=== PATIENT | female | born 1955 | race Caucasian/White ===

== ENCOUNTER → 2019-12-12 | Outpatient (CLI) | payer MEDICARE, BC ==
--- NOTE | 2019-12-13 11:27 | CT ---
EXAMINATION TYPE: CT chest wo con DATE OF EXAM: 12/12/2019 COMPARISON: NONE HISTORY: Cough, nicotine dependence. CT DLP: 170.10 mGycm. Automated Exposure Control for Dose Reduction was Utilized. TECHNIQUE: CT scan of the thorax is performed without IV contrast. FINDINGS: LUNGS: There is a vague solid pulmonary nodule along the left mediastinal border in the upper lobe me asuring 4 mm on series 4 image 18. This is likely incompletely visualized given slice selection. Ther e is mild bibasilar subsegmental dependent atelectasis and mild emphysematous changes of the lungs. T here is a vague 3 mm right upper lobe pulmonary nodule on series 4 image 10 anteriorly. This is groun dglass. Subpleural 3 mm pulmonary nodule seen on the lateral right lower lobe on image 34. There is no pleural effusion or pneumothorax seen. The tracheobronchial tree is patent. MEDIASTINUM: Lack of IV contrast is noted to limit evaluation for mediastinal and especially hilar ad enopathy. There are no definitive greater than 1 cm hilar or mediastinal lymph nodes. No cardiomega ly or pericardial effusion is seen. Moderate atheromatous changes of the thoracic aorta. Main pulmona ry artery is upper limits of normal size. Moderate coronary artery calcifications, marker of coronary artery disease. OTHER: Mild multilevel degenerative changes of the thoracic spine. Exaggerated thoracic kyphosis. Ext ensive atherosclerosis of the upper to mid abdominal aorta. IMPRESSION: Mild background emphysema with few scattered bilateral sub-4 mm pulmonary nodules. Annual surveillanc e is recommended for nodules of the size of follow-up CT thorax in 12 months.
== END | disposition home or self-care (01) ==
LOC: RADCTMAIN 07:27
PROVIDERS: ATTEND Family Medicine
DX: J43.9 Emphysema, unspecified (principal); R91.8 Other nonspecific abnormal finding of lung field; F17.210 Nicotine dependence, cigarettes, uncomplicated
CPT/HCPCS: 71250

== ENCOUNTER → 2020-01-12 | Outpatient (CLI) | payer MEDICARE, BC ==
--- NOTE | 2020-01-12 10:10 | US ---
EXAMINATION TYPE: US thyroid st tissue head/neck DATE OF EXAM: 01/12/2020 COMPARISON: Chest CT December 12, 2019 CLINICAL HISTORY: R94.6 abnormal thyroid labs. Abnormal thyroid labs, neck pain GLAND SIZE: Right Lobe: 2.8 x 1.1 x 0.9 cm Overall Parenchyma: homogenous Left Lobe: 4.0 x 1.2 x 1.0 cm Overall Parenchyma: homogeneous Isthmus Thickness: 0.3 cm NODULES RIGHT: # of nodules measured on right: 0 LEFT: # of nodules measured on left: 3 1. 0.7 X 0.9 x 0.6 cm hypoechoic solid nodule at the lateral mid pole with well-defined margins. Th is nodule is taller than wide and shows intranodular vascularity. Prior size: no previous 2. 0.9 X 0.7 x 0.9 cm hyperechoic solid nodule at the medial inferior pole with well-defined margins . This nodule is wider than tall and shows intranodular vascularity. Prior size: no previous 3. 0.9 X 0.5 x 0.8 cm hyperechoic solid nodule at the medial mid pole with well-defined margins. Thi s nodule is wider than tall and shows intranodular vascularity. Prior size: no previous ISTHMUS: # of nodules measured in the isthmus: 0 Bilateral neck scanned, no evidence of lymphadenopathy. There is overall fairly small homogeneous thyroid with technologist marking 3 subcentimeter solid nod ules in the left thyroid lobe. Of most concern is the hypoechoic solid nodule that is taller greater than wide. IMPRESSION: Small sized thyroid with left-sided nodules, of most concern is the 9 mm hypoechoic solid nodule, TR 5 lesion highly suspicious, advise annual ultrasound surveillance being subcentimeter in size.
== END | disposition home or self-care (01) ==
LOC: RADUSWWP 09:29
PROVIDERS: ATTEND Family Medicine
DX: E04.2 Nontoxic multinodular goiter (principal); F17.210 Nicotine dependence, cigarettes, uncomplicated
CPT/HCPCS: 76536; 94060; 94726; 94729

== ENCOUNTER → 2020-04-15 | Outpatient (CLI) | payer MEDICARE, BC ==
--- NOTE | 2020-04-15 13:11 | XR ---
EXAMINATION TYPE: XR Hip Complete LT DATE OF EXAM: 04/15/2020 COMPARISON: NONE HISTORY: 64 year-old female with left hip pain TECHNIQUE: 2 views FINDINGS: Mild axial joint space narrowing within the left hip. Left-sided pelvic fluid was. No acute fracture, subluxation, or dislocation. IMPRESSION: Mild left hip OA without acute osseous abnormality seen.
== END | disposition home or self-care (01) ==
LOC: RADXRMAIN 11:56
PROVIDERS: ATTEND Family Medicine
DX: M16.12 Unilateral primary osteoarthritis, left hip (principal)
CPT/HCPCS: 73502

== ENCOUNTER → 2020-05-13 | Outpatient (CLI) | payer MEDICARE, BC ==
--- NOTE | 2020-05-13 08:08 | US ---
EXAMINATION TYPE: US abdomen complete DATE OF EXAM: 05/13/2020 COMPARISON: NONE CLINICAL HISTORY: R19.09 PELVIC PAIN, ASCITIES. nausea EXAM MEASUREMENTS: Liver Length: 14.1 cm Gallbladder Wall: 0.2 cm CBD: 0.7 cm Spleen: 9.6 cm Right Kidney: 10.2 x 4.0 x 4.8 cm Left Kidney: 9.1 x 5.0 x 3.9 cm Pancreas: visualized portions appear wnl Liver: appears wnl Gallbladder: no evidence of stones Evidence for sonographic Aragon's sign: no CBD: dilated Spleen: wnl Right Kidney: cystic area lower pole = 0.9 x 0.6 x 0.9cm Left Kidney: cystic area = 0.8 x 1.0cm Upper IVC: wnl Abd Aorta: calcifications noted The liver is homogenous. The intrahepatic portion of the IVC and proximal abdominal aorta are within normal limits. There is no evidence of cholelithiasis. The visualized portions of the pancreas are homogenous. The spleen is unremarkable. Kidneys are symmetric and free of hydronephrosis. IMPRESSION: 1. Mild prominence of the common bile duct. 2. Renal cystic changes.
--- NOTE | 2020-05-13 08:09 | US ---
EXAMINATION TYPE: US pelvic limited DATE OF EXAM: 05/13/2020 COMPARISON: NONE CLINICAL HISTORY: R19.09 PELVIC PAIN, ASCITIES. pelvic pressure, fluid visualized within left pelvis on xray 04/15/20, complete hysterectomy TECHNIQUE: Transabdominal (TA) Date of LMP: unknown EXAM MEASUREMENTS: Uterus: Surgically absent Endometrial Stripe: Surgically absent Right Ovary: Surgically absent Left Ovary: Surgically absent 1. Uterus: Surgically absent, vaginal cuff = 0.7cm 2. Endometrium: Surgically absent 3. Right Ovary: Surgically absent 4. Left Ovary: Surgically absent 5. Bilateral Adnexa: appears wnl IMPRESSION: Unremarkable post operative pelvis.
== END | disposition home or self-care (01) ==
LOC: RADUSWWP 07:01
PROVIDERS: ATTEND Family Medicine
DX: R19.09 Other intra-abdominal and pelvic swelling, mass and lump (principal); N28.9 Disorder of kidney and ureter, unspecified
CPT/HCPCS: 76700; 76857

== ENCOUNTER → 2021-01-02 | Outpatient (CLI) | payer MEDICARE, BC ==
--- NOTE | 2021-01-02 10:16 | CT ---
EXAMINATION TYPE: CT chest wo con DATE OF EXAM: 01/02/2021 COMPARISON: Chest CT December 12, 2019 HISTORY: Lung nodules CT DLP: 333 mGycm. Automated Exposure Control for Dose Reduction was Utilized. TECHNIQUE: CT scan of the thorax is performed without IV contrast. FINDINGS: LUNGS: Mild underlying emphysematous change redemonstrated. Mild bibasilar linear scarring and/or ate lectasis. Scattered small nodules or nodular opacities redemonstrated. Stable 5 x 3 mm groundglass no dule medial axial image 18 left upper lobe. Stable 3 to 4 mm left upper lobe lateral nodule axial benjie ge 15 in retrospect. The vague 2 to 3 mm right upper lung groundglass nodule axial image 10 is less w ell-seen likely stable. Stable 4 x 2 mm subpleural nodule or nodular scarring right lower lobe axial image 36. No new or enlarging greater than 4 mm nodules. No pleural effusion or pneumothorax. MEDIASTINUM: Lack of IV contrast is noted to limit evaluation for mediastinal and especially hilar ad enopathy. There are no definitive new greater than 1 cm hilar or mediastinal lymph nodes. No cardio megaly or pericardial effusion is seen. Moderate coronary artery calcification. OTHER: Underlying scoliotic curvature. [id number] multilevel anterior spurring in the midthorac ic spine. IMPRESSION: Stable scattered small nodules or nodular opacities and nodular scarring. No new or enlar ging nodules. Findings presumed benign.
== END ==
LOC: RADCTMAIN 08:43
PROVIDERS: ATTEND Family Medicine
DX: R91.8 Other nonspecific abnormal finding of lung field (principal)
CPT/HCPCS: 71250

== ENCOUNTER → 2021-02-27 | Outpatient (CLI) | payer MEDICARE, BC ==
--- NOTE | 2021-02-28 06:25 | US ---
EXAMINATION TYPE: US thyroid st tissue head/neck DATE OF EXAM: 02/27/2021 COMPARISON: Prior thyroid ultrasound January 12, 2020 CLINICAL HISTORY: E04.2 Nontoxic multinodular goiter. follow up exam GLAND SIZE: Right Lobe: 2.9 x 0.9 x 0.9 cm Overall Parenchyma: homogenous Left Lobe: 4.0 x 0.9 x 1.3 cm Overall Parenchyma: heterogeneous Isthmus Thickness: 0.3 cm NODULES RIGHT: # of nodules measured on right: 0 LEFT: # of nodules measured on left: 3 1. 0.9 X 0.6 x 0.8 cm, mid solid or almost completely solid, hypoechoic nodule, which is taller th an wide, with smooth margins, without echogenic foci. Prior size: 0.9 x 0.5 x 0.8 cm 2. 0.8 X 0.8 x 0.6 cm, lowerr solid or almost completely solid, hyperechoic nodule, which is wider than tall, with smooth margins, without echogenic foci. Prior size: 0.7 x 0.9 x 0.6 cm 3. 0.7 X 0.9 x 0.9 cm, lower solid or almost completely solid, hyperechoic nodule, which is wider t blackwood tall, with smooth margins, without echogenic foci. Prior size: 0.9 x 0.7 x 0.9 cm ISTHMUS: # of nodules measured in the isthmus: 0 Bilateral neck scanned, no evidence of lymphadenopathy. Persistent slightly heterogeneous small size thyroid with 3 stable subcentimeter left thyroid nodules marked by technologist. IMPRESSION: As above. No concerning new or enlarging nodules.
== END | disposition home or self-care (01) ==
LOC: RADUSWWP 16:41
PROVIDERS: ATTEND Internal Medicine Endocrinology, Diabetes & Metabolism
DX: E04.2 Nontoxic multinodular goiter (principal)
CPT/HCPCS: 76536

== ENCOUNTER → 2021-02-28 | Outpatient (CLI) | payer MEDICARE, BC ==
[2021-03-01 14:47] LABS: T4, Free (Free Thyroxine) 0.6 ng/dL (0.80-1.80)
== END | disposition home or self-care (01) ==
LOC: LABWHC1 15:16
PROVIDERS: ATTEND Internal Medicine Endocrinology, Diabetes & Metabolism
DX: E04.2 Nontoxic multinodular goiter (principal)
CPT/HCPCS: 36415; 84439; 84443

== ENCOUNTER 2021-06-14 16:01 | Emergency (ER) | payer MEDICARE, BC ==
[2021-06-14 16:15] VITALS: RESP 18; TEMP 98.5
[2021-06-14] MEDS ORDERED: SODIUM CHLORIDE 0.9% 500 ML 500 ML IV STA (16:21)
[2021-06-14] MEDS ORDERED: SODIUM CHLORIDE 0.9% 1,000 ML IV STA (16:21)
--- NOTE | 2021-06-14 16:31 | ED ---
Abdominal Pain HPI - General Chief Complaint: Abdominal Pain Stated Complaint: abd pain, nausea, vomiting Time Seen by Provider: 06/14/21 16:05 Source: patient, EMS, RN notes reviewed Mode of arrival: EMS Limitations: no limitations - History of Present Illness Initial Comments: 64-year-old female presents emergency Department chief complaint of left-sided abdominal pain. Patient states this woke up around 4 AM states that she felt like she was bloated started states started having large amount of bowel movements and states throughout today she developed increased pain and nausea vomiting. Patient states that she was given Zofran by EMS which has helped her nausea and discomfort. She does have a history of diverticulosis. Patient states pain is on left lower aspect no dysuria no hematuria no fevers or chills no chest pain or shortness breath. - Related Data Home Medications Medication Instructions Recorded Confirmed Aspirin EC [Ecotrin Low Dose] 81 mg PO DAILY 06/14/21 06/14/21 Cholecalciferol (Vitamin D3) 125 mcg PO DAILY 06/14/21 06/14/21 [Vitamin D3 (125 MCG = 5,000 IU)] Cyanocobalamin [Vitamin B-12] 500 mcg PO DAILY 06/14/21 06/14/21 Folic Acid 1 mg PO DAILY 06/14/21 06/14/21 Isosorbide Mononitrate ER [Imdur] 60 mg PO BID 06/14/21 06/14/21 Levothyroxine Sodium [Synthroid] 88 mcg PO HS 06/14/21 06/14/21 OXcarbazepine [Trileptal] 600 mg PO BID 06/14/21 06/14/21 Ramipril 10 mg PO BID 06/14/21 06/14/21 Rosuvastatin Calcium [Crestor] 40 mg PO Q48H 06/14/21 06/14/21 Sertraline [Zoloft] 100 mg PO HS 06/14/21 06/14/21 amLODIPine [Norvasc] 10 mg PO DAILY 06/14/21 06/14/21 Previous Rx's Medication Instructions Recorded Cephalexin [Keflex] 500 mg PO Q6HR #40 cap 06/14/21 Ondansetron Odt [Zofran Odt] 4 mg PO Q8HR PRN #10 tab 06/14/21 Allergies Allergy/AdvReac Type Severity Reaction Status Date / Time No Known Allergies Allergy Verified 06/14/21 17:30 Review of Systems ROS Statement: Those systems with pertinent positive or pertinent negative responses have been documented in the HPI. ROS Other: All systems not noted in ROS Statement are negative. Past Medical History Past Medical History: Chest Pain / Angina, CVA/TIA, Hyperlipidemia, Hypertension, Myocardial Infarction (CT), Seizure Disorder, Thyroid Disorder Additional Past Medical History / Comment(s): brain coils, ITP History of Any Multi-Drug Resistant Organisms: None Reported Past Surgical History: Heart Catheterization With Stent, Hysterectomy Past Psychological History: No Psychological Hx Reported Smoking Status: Current every day smoker Past Alcohol Use History: None Reported Past Drug Use History: Marijuana General Exam Limitations: no limitations General appearance: alert, in no apparent distress Head exam: Present: atraumatic, normocephalic, normal inspection Respiratory exam: Present: normal lung sounds bilaterally. Absent: respiratory distress, wheezes, rales, rhonchi, stridor Cardiovascular Exam: Present: regular rate, normal rhythm, normal heart sounds. Absent: systolic murmur, diastolic murmur, rubs, gallop, clicks GI/Abdominal exam: Present: soft, tenderness (Left lower quadrant), normal bowel sounds. Absent: distended, guarding, rebound, rigid Back exam: Absent: CVA tenderness (R), CVA tenderness (L) Neurological exam: Present: alert Skin exam: Present: warm, dry, intact, normal color. Absent: rash Course Vital Signs 06/14/21 16:03 Temperature 98.5 F Pulse Rate 65 Respiratory 18 Rate Blood Pressure 168/93 O2 Sat by Pulse 100 Oximetry Medical Decision Making - Medical Decision Making 65-year-old female presented for left-sided abdominal pain. Patient does have some left-sided CVA tenderness mild leukocytosis. CT shows evidence of possible pyelonephritis. Patient we treated at this time first dose given of IV Rocephin will be discharged on Keflex and return parameters were discussed. - Lab Data Result diagrams: 06/14/21 16:41 06/14/21 16:41 Lab Results 06/14/21 06/14/21 06/14/21 Range/Units 16:41 16:41 16:41 WBC 12.0 H (3.8-10.6) k/uL RBC 4.37 (3.80-5.40) m/uL Hgb 13.8 (11.4-16.0) gm/dL Hct 40.9 (34.0-46.0) % MCV 93.6 (80.0-100.0) fL MCH 31.7 (25.0-35.0) pg MCHC 33.8 (31.0-37.0) g/dL RDW 13.5 (11.5-15.5) % Plt Count 217 (150-450) k/uL MPV 7.3 Neutrophils % 94 % Lymphocytes % 3 % Monocytes % 2 % Eosinophils % 1 % Basophils % 0 % Neutrophils # 11.2 H (1.3-7.7) k/uL Lymphocytes # 0.4 L (1.0-4.8) k/uL Monocytes # 0.2 (0-1.0) k/uL Eosinophils # 0.1 (0-0.7) k/uL Basophils # 0.0 (0-0.2) k/uL Sodium 137 (137-145) mmol/L Potassium 3.8 (3.5-5.1) mmol/L Chloride 108 H (98-107) mmol/L Carbon Dioxide 22 (22-30) mmol/L Anion Gap 7 mmol/L BUN 16 (7-17) mg/dL Creatinine 0.84 (0.52-1.04) mg/dL Est GFR (CKD-EPI)AfAm 86 (>60 ml/min/1.73 sqM) Est GFR (CKD-EPI)NonAf 74 (>60 ml/min/1.73 sqM) Glucose 150 H (74-99) mg/dL Plasma Lactic Acid Yehuda 1.2 (0.7-2.0) mmol/L Calcium 9.3 (8.4-10.2) mg/dL Total Bilirubin 0.2 (0.2-1.3) mg/dL AST 48 H (14-36) U/L ALT 21 (4-34) U/L Alkaline Phosphatase 98 (38-126) U/L Total Protein 6.7 (6.3-8.2) g/dL Albumin 4.1 (3.5-5.0) g/dL Amylase 76 (30-110) U/L Lipase 80 (23-300) U/L Urine Color Urine Appearance (Clear) Urine pH (5.0-8.0) Ur Specific [place] (1.001-1.035) Urine Protein (Negative) Urine Glucose (UA) (Negative) Urine Ketones (Negative) Urine Blood (Negative) Urine Nitrite (Negative) Urine Bilirubin (Negative) Urine Urobilinogen (<2.0) mg/dL Ur Leukocyte Esterase (Negative) Urine RBC (0-5) /hpf Urine WBC (0-5) /hpf Urine Mucus (None) /hpf 06/14/21 Range/Units 17:12 WBC (3.8-10.6) k/uL RBC (3.80-5.40) m/uL Hgb (11.4-16.0) gm/dL Hct (34.0-46.0) % MCV (80.0-100.0) fL MCH (25.0-35.0) pg MCHC (31.0-37.0) g/dL RDW (11.5-15.5) % Plt Count (150-450) k/uL MPV Neutrophils % % Lymphocytes % % Monocytes % % Eosinophils % % Basophils % % Neutrophils # (1.3-7.7) k/uL Lymphocytes # (1.0-4.8) k/uL Monocytes # (0-1.0) k/uL Eosinophils # (0-0.7) k/uL Basophils # (0-0.2) k/uL Sodium (137-145) mmol/L Potassium (3.5-5.1) mmol/L Chloride (98-107) mmol/L Carbon Dioxide (22-30) mmol/L Anion Gap mmol/L BUN (7-17) mg/dL Creatinine (0.52-1.04) mg/dL Est GFR (CKD-EPI)AfAm (>60 ml/min/1.73 sqM) Est GFR (CKD-EPI)NonAf (>60 ml/min/1.73 sqM) Glucose (74-99) mg/dL Plasma Lactic Acid Yehuda (0.7-2.0) mmol/L Calcium (8.4-10.2) mg/dL Total Bilirubin (0.2-1.3) mg/dL AST (14-36) U/L ALT (4-34) U/L Alkaline Phosphatase (38-126) U/L Total Protein (6.3-8.2) g/dL Albumin (3.5-5.0) g/dL Amylase (30-110) U/L Lipase (23-300) U/L Urine Color Light Yellow Urine Appearance Clear (Clear) Urine pH 7.0 (5.0-8.0) Ur Specific [place] 1.028 (1.001-1.035) Urine Protein 1+ H (Negative) Urine Glucose (UA) Trace H (Negative) Urine Ketones Negative (Negative) Urine Blood Negative (Negative) Urine Nitrite Negative (Negative) Urine Bilirubin Negative (Negative) Urine Urobilinogen <2.0 (<2.0) mg/dL Ur Leukocyte Esterase Negative (Negative) Urine RBC 1 (0-5) /hpf Urine WBC 1 (0-5) /hpf Urine Mucus Rare H (None) /hpf Disposition Clinical Impression: Pyelonephritis, Nausea & vomiting Disposition: HOME SELF-CARE Condition: Stable Instructions (If sedation given, give patient instructions): Kidney Infection (ED) Additional Instructions: Please return to the Emergency Department if symptoms worsen or any other concerns. Prescriptions: Cephalexin [Keflex] 500 mg PO Q6HR #40 cap Ondansetron Odt [Zofran Odt] 4 mg PO Q8HR PRN #10 tab PRN Reason: Nausea Is patient prescribed a controlled substance at d/c from ED?: No Referrals: Mihaela Lim MD [Primary Care Provider] - 1-2 days Time of Disposition: 17:55
[2021-06-14 16:49] LABS: Basophils % (A) 0 %; Eosinophils # (A) 0.1 k/uL (0-0.7); Eosinophils % (A) 1 %; HCT 40.9 % (34.0-46.0); HGB 13.8 gm/dL (11.4-16.0); Lymphocytes # (A) 0.4 k/uL (1.0-4.8); Lymphocytes % (A) 3 %; MCH 31.7 pg (25.0-35.0); MCHC 33.8 g/dL (31.0-37.0); MCV 93.6 fL (80.0-100.0); Mean Platelet Volume 7.3; Monocytes # (A) 0.2 k/uL (0-1.0); Monocytes % (A) 2 %; Neutrophils # (A) 11.2 k/uL (1.3-7.7); Neutrophils % (A) 94 %; Platelet Count 217 k/uL (150-450); RBC 4.37 m/uL (3.80-5.40); RDW 13.5 % (11.5-15.5)
[2021-06-14 17:19] LABS: Albumin 4.1 g/dL (3.5-5.0); Calcium 9.3 mg/dL (8.4-10.2); Potassium 3.8 mmol/L (3.5-5.1); Total Bilirubin 0.2 mg/dL (0.2-1.3); Total Protein 6.7 g/dL (6.3-8.2)
[2021-06-14 17:27] LABS: Appearance,Urine Clear (Clear); Bilirubin,Urine Negative (Negative); Blood,Urine Negative (Negative); Color,Urine Light Yellow; Glucose,Urine (UA) Trace (Negative); Ketones,Urine Negative (Negative); Leukocyte Esterase,Urine Negative (Negative); Mucus,Urine Rare /hpf; Nitrite,Urine Negative (Negative); Protein,Urine 1+ (Negative); RBC,Urine 1 /hpf (0-5); Specific Gravity,Urine 1.028 (1.001-1.035); Urobilinogen,Urine <2.0 mg/dL (<2.0); WBC,Urine 1 /hpf (0-5)
--- NOTE | 2021-06-14 17:27 | CT ---
EXAMINATION TYPE: CT abdomen pelvis w con DATE OF EXAM: 06/14/2021 COMPARISON: 2011. HISTORY: Abdominal pain, nausea, vomiting and diarrhea. CT DLP: 503.8 mGycm Automated exposure control for dose reduction was used. TECHNIQUE: Helical acquisition of images was performed from the lung bases through the pelvis. CONTRAST: Performed without Oral Contrast and with IV Contrast, patient injected with 100 mL of Isovue 300. FINDINGS: LUNG BASES: No significant abnormality is appreciated. LIVER/GB: No significant abnormality is appreciated. PANCREAS: No significant abnormality is seen. SPLEEN: No significant abnormality is seen. ADRENALS: No significant abnormality is seen. KIDNEYS: Focal hypoenhancement of the left kidney lower pole. No bilateral hydronephrosis or nephroli thiasis. Few left greater than right simple appearing renal cysts measuring up to 6 mm. FREE AIR: No free air is visualized. RETROPERITONEAL ADENOPATHY: None visualized REPRODUCTIVE ORGANS: No significant abnormality is seen URINARY BLADDER: No significant abnormality is seen. PELVIC ADENOPATHY: None visualized. OSSEOUS STRUCTURES: No significant abnormality is seen. BOWEL: No significant abnormality is seen. OTHER: Moderate atherosclerotic disease. IMPRESSION: FINDINGS COMPATIBLE WITH LEFT PYELONEPHRITIS IN THE APPROPRIATE CLINICAL SETTING. RECOMMEND LABORATOR Y CORRELATION. NO HYDRONEPHROSIS.
[2021-06-14] MEDS ORDERED: cefTRIAXone IN SWFI 1,000 MG/10 ML SYRINGE IVP STA (17:49)
[2021-06-14] MEDS ORDERED: ACET/COD 300 MG/30 MG STARTER PACK 6 TAB BTL PO STA (17:55)
[2021-06-14 18:15] VITALS: BP 138/79; PULSE 68
== END 2021-06-14 18:15 | disposition home or self-care (01) ==
LOC: EC 16:01
DX: N12 Tubulo-interstitial nephritis, not specified as acute or chronic (principal); R11.2 Nausea with vomiting, unspecified; E78.5 Hyperlipidemia, unspecified; I10 Essential (primary) hypertension; I25.2 Old myocardial infarction; E07.9 Disorder of thyroid, unspecified; F17.200 Nicotine dependence, unspecified, uncomplicated; F12.90 Cannabis use, unspecified, uncomplicated; Z79.82 Long term (current) use of aspirin; Z86.73 Personal history of transient ischemic attack (TIA), and cerebral infarction without residual deficits
CPT/HCPCS: 99284; 96374; 96361; 36415; 80053; 82150; 83605; 83690; 85025; 81001; 87086; 74177; J0696; Q9967

== ENCOUNTER 2021-06-15 13:18 | Inpatient (IN) | payer MEDICARE, BC ==
[2021-06-15] MEDS ORDERED: ACETAMINOPHEN TAB 500 MG TAB PO STA (13:46)
--- NOTE | 2021-06-15 14:10 | ED ---
General Adult HPI - General Chief complaint: Abdominal Pain Stated complaint: Revisit/Seizures/Nausea Time Seen by Provider: 06/15/21 13:24 Source: patient Mode of arrival: wheelchair Limitations: no limitations - History of Present Illness Initial comments: 65-year-old female presents to the emergency room for a chief complaint of abdominal pain and seizures. Patient had abdominal pain and vomiting starting yesterday. She came to the emergency room and had a CAT scan that showed pyelonephritis changes. She also has left flank pain. Patient states this morning she had 4 seizures which is very abnormal for her. She does have a seizure disorder but these are controlled on Trileptal and she has not had seizures in probably 2-3 years. This is a prompted them to come back to the emergency room. Patient had taken antibiotics for pyelo yesterday in the emergency room however had not taken any yet today at home. Patient has no other complaints at this time including shortness of breath, chest pain, abdominal pain, nausea or vomiting, headache, or visual changes. - Related Data Home Medications Medication Instructions Recorded Confirmed Aspirin EC [Ecotrin Low Dose] 81 mg PO DAILY 06/14/21 06/15/21 Cholecalciferol (Vitamin D3) 125 mcg PO DAILY 06/14/21 06/15/21 [Vitamin D3 (125 MCG = 5,000 IU)] Cyanocobalamin [Vitamin B-12] 500 mcg PO DAILY 06/14/21 06/15/21 Folic Acid 1 mg PO DAILY 06/14/21 06/15/21 Isosorbide Mononitrate ER [Imdur] 60 mg PO BID 06/14/21 06/15/21 Levothyroxine Sodium [Synthroid] 88 mcg PO HS 06/14/21 06/15/21 OXcarbazepine [Trileptal] 600 mg PO BID 06/14/21 06/15/21 Ramipril 10 mg PO BID 06/14/21 06/15/21 Rosuvastatin Calcium [Crestor] 40 mg PO Q48H 06/14/21 06/15/21 Sertraline [Zoloft] 100 mg PO HS 06/14/21 06/15/21 amLODIPine [Norvasc] 10 mg PO DAILY 06/14/21 06/15/21 Previous Rx's Medication Instructions Recorded Cephalexin [Keflex] 500 mg PO Q6HR #40 cap 06/14/21 Ondansetron Odt [Zofran Odt] 4 mg PO Q8HR PRN #10 tab 06/14/21 Allergies Allergy/AdvReac Type Severity Reaction Status Date / Time No Known Allergies Allergy Verified 06/15/21 14:03 Review of Systems ROS Statement: Those systems with pertinent positive or pertinent negative responses have been documented in the HPI. ROS Other: All systems not noted in ROS Statement are negative. Past Medical History Past Medical History: Chest Pain / Angina, CVA/TIA, Hyperlipidemia, Hypertension, Myocardial Infarction ([place]), Seizure Disorder, Thyroid Disorder Additional Past Medical History / Comment(s): brain coils, ITP History of Any Multi-Drug Resistant Organisms: None Reported Past Surgical History: Heart Catheterization With Stent, Hysterectomy Past Psychological History: No Psychological Hx Reported Smoking Status: Current every day smoker Past Alcohol Use History: None Reported Past Drug Use History: Marijuana General Exam Limitations: no limitations General appearance: alert Head exam: Present: atraumatic Eye exam: Present: normal appearance, PERRL, EOMI. Absent: scleral icterus, conjunctival injection ENT exam: Present: normal exam, mucous membranes moist Neck exam: Present: normal inspection, full ROM. Absent: tenderness Respiratory exam: Present: normal lung sounds bilaterally. Absent: respiratory distress, wheezes Cardiovascular Exam: Present: regular rate, normal rhythm, normal heart sounds Neurological exam: Present: alert Course Vital Signs 06/15/21 06/15/21 06/15/21 13:19 14:42 16:05 Temperature 98.3 F 99.5 F 99.5 F Pulse Rate 85 67 Respiratory 18 16 Rate Blood Pressure 163/85 116/56 O2 Sat by Pulse 97 99 Oximetry EKG Findings - EKG Comments: EKG Findings:: Normal sinus rhythm, ventricular rate 71, pr int 46, QTC 421 Medical Decision Making - Medical Decision Making I did review patient's visit from yesterday. Patient was diagnosed with pyelonephritis. This was evident on CAT scan. Patient does have left CVA tenderness as well as a temperature of 100.3 here in the emergency room. Patient was started on Keflex 4 times per day and she was given Rocephin here in the emergency room. She has not yet taken her Keflex otherwise. Vitals are stable. When the patient presented her temperature was 100.3. CBC CMP were obtained and were unremarkable. Urinalysis is unremarkable. Coronavirus undetected. X-ray of the chest shows possible bronchitis or asthma. There is a prominent convex demarcated edge projecting across the right upper lobe. This is favored to represent a skin fold. Correlate as to possibility of a pneumothorax. There is no clinical concern for this. Patient is not short of breath nor does she have chest pain. Patients CT from yesterday showed a pyelonephritis. Patient does have a low-grade fever and exquisite CVA te nderness. At this time patient will be treated w Rocephin. I suspect her fevers are lowering her seizure threshold. Trileptal levels are ordered. No seizure activity in the ER. Patient will be admitted for neurology consultation as well as IV antibiotics. Patient's chest x-ray did show a possible skinfold versus pneumothorax. Not clinically correlated at this time however repeat x-rays were obtained to rule this out. Repeat x-ray negative for pneumothorax. I did speak with Dr. Rasmussen who does accept the admission. - Lab Data Result diagrams: 06/15/21 14:27 06/15/21 14:27 Lab Results 06/15/21 06/15/21 06/15/21 Range/Units 14:27 14:27 14:27 WBC 9.6 (3.8-10.6) k/uL RBC 4.19 (3.80-5.40) m/uL Hgb 13.4 (11.4-16.0) gm/dL Hct 39.6 (34.0-46.0) % MCV 94.5 (80.0-100.0) fL MCH 31.9 (25.0-35.0) pg MCHC 33.8 (31.0-37.0) g/dL RDW 13.7 (11.5-15.5) % Plt Count 233 (150-450) k/uL MPV 7.2 Neutrophils % 87 % Lymphocytes % 8 % Monocytes % 3 % Eosinophils % 1 % Basophils % 0 % Neutrophils # 8.4 H (1.3-7.7) k/uL Lymphocytes # 0.7 L (1.0-4.8) k/uL Monocytes # 0.3 (0-1.0) k/uL Eosinophils # 0.1 (0-0.7) k/uL Basophils # 0.0 (0-0.2) k/uL PT 10.4 (9.0-12.0) sec INR 1.0 (<1.2) APTT 26.2 (22.0-30.0) sec Sodium (137-145) mmol/L Potassium (3.5-5.1) mmol/L Chloride (98-107) mmol/L Carbon Dioxide (22-30) mmol/L Anion Gap mmol/L BUN (7-17) mg/dL Creatinine (0.52-1.04) mg/dL Est GFR (CKD-EPI)AfAm (>60 ml/min/1.73 sqM) Est GFR (CKD-EPI)NonAf (>60 ml/min/1.73 sqM) Glucose (74-99) mg/dL Plasma Lactic Acid Yehuda (0.7-2.0) mmol/L Calcium (8.4-10.2) mg/dL Total Bilirubin (0.2-1.3) mg/dL AST (14-36) U/L ALT (4-34) U/L Alkaline Phosphatase (38-126) U/L Total Protein (6.3-8.2) g/dL Albumin (3.5-5.0) g/dL Urine Color Yellow Urine Appearance Clear (Clear) Urine pH 6.5 (5.0-8.0) Ur Specific [place] 1.024 (1.001-1.035) Urine Protein 2+ H (Negative) Urine Glucose (UA) Trace H (Negative) Urine Ketones Negative (Negative) Urine Blood Trace H (Negative) Urine Nitrite Negative (Negative) Urine Bilirubin Negative (Negative) Urine Urobilinogen <2.0 (<2.0) mg/dL Ur Leukocyte Esterase Negative (Negative) Urine RBC 1 (0-5) /hpf Urine WBC 1 (0-5) /hpf Urine Mucus Rare H (None) /hpf Coronavirus (PCR) (Not Detectd) 06/15/21 06/15/21 06/15/21 Range/Units 14:27 14:27 14:27 WBC (3.8-10.6) k/uL RBC (3.80-5.40) m/uL Hgb (11.4-16.0) gm/dL Hct (34.0-46.0) % MCV (80.0-100.0) fL MCH (25.0-35.0) pg MCHC (31.0-37.0) g/dL RDW (11.5-15.5) % Plt Count (150-450) k/uL MPV Neutrophils % % Lymphocytes % % Monocytes % % Eosinophils % % Basophils % % Neutrophils # (1.3-7.7) k/uL Lymphocytes # (1.0-4.8) k/uL Monocytes # (0-1.0) k/uL Eosinophils # (0-0.7) k/uL Basophils # (0-0.2) k/uL PT (9.0-12.0) sec INR (<1.2) APTT (22.0-30.0) sec Sodium 137 (137-145) mmol/L Potassium 4.1 (3.5-5.1) mmol/L Chloride 107 (98-107) mmol/L Carbon Dioxide 25 (22-30) mmol/L Anion Gap 5 mmol/L BUN 11 (7-17) mg/dL Creatinine 0.94 (0.52-1.04) mg/dL Est GFR (CKD-EPI)AfAm 75 (>60 ml/min/1.73 sqM) Est GFR (CKD-EPI)NonAf 65 (>60 ml/min/1.73 sqM) Glucose 121 H (74-99) mg/dL Plasma Lactic Acid Yehuda 0.9 (0.7-2.0) mmol/L Calcium 9.6 (8.4-10.2) mg/dL Total Bilirubin 0.2 (0.2-1.3) mg/dL AST 61 H (14-36) U/L ALT 34 (4-34) U/L Alkaline Phosphatase 88 (38-126) U/L Total Protein 6.6 (6.3-8.2) g/dL Albumin 4.0 (3.5-5.0) g/dL Urine Color Urine Appearance (Clear) Urine pH (5.0-8.0) Ur Specific [place] (1.001-1.035) Urine Protein (Negative) Urine Glucose (UA) (Negative) Urine Ketones (Negative) Urine Blood (Negative) Urine Nitrite (Negative) Urine Bilirubin (Negative) Urine Urobilinogen (<2.0) mg/dL Ur Leukocyte Esterase (Negative) Urine RBC (0-5) /hpf Urine WBC (0-5) /hpf Urine Mucus (None) /hpf Coronavirus (PCR) Not Detected (Not Detectd) Disposition Clinical Impression: Pyelonephritis, Nausea & vomiting, Seizure Disposition: ADMITTED IP TO THIS HOSP Is patient prescribed a controlled substance at d/c from ED?: No Referrals: Mihaela Lim MD [Primary Care Provider] - 1-2 days Time of Disposition: 17:13
[2021-06-15] MEDS: SODIUM CHLORIDE 0.9% 500 ML 500 ML IV SCH (14:26)
[2021-06-15 14:39] LABS: Basophils % (A) 0 %; Eosinophils % (A) 1 %; HCT 39.6 % (34.0-46.0); HGB 13.4 gm/dL (11.4-16.0); Lymphocytes # (A) 0.7 k/uL (1.0-4.8); Lymphocytes % (A) 8 %; MCH 31.9 pg (25.0-35.0); MCHC 33.8 g/dL (31.0-37.0); MCV 94.5 fL (80.0-100.0); Mean Platelet Volume 7.2; Monocytes % (A) 3 %; Neutrophils # (A) 8.4 k/uL (1.3-7.7); Neutrophils % (A) 87 %; Platelet Count 233 k/uL (150-450); RBC 4.19 m/uL (3.80-5.40); RDW 13.7 % (11.5-15.5); WBC 9.6 k/uL (3.8-10.6)
[2021-06-15 14:40] LABS: Eosinophils # (A) 0.1 k/uL (0-0.7); Monocytes # (A) 0.3 k/uL (0-1.0)
[2021-06-15 14:41] LABS: Appearance,Urine Clear (Clear); Bilirubin,Urine Negative (Negative); Blood,Urine Trace (Negative); Color,Urine Yellow; Glucose,Urine (UA) Trace (Negative); Ketones,Urine Negative (Negative); Leukocyte Esterase,Urine Negative (Negative); Mucus,Urine Rare /hpf; Nitrite,Urine Negative (Negative); PH, Urine 6.5 (5.0-8.0); Protein,Urine 2+ (Negative); RBC,Urine 1 /hpf (0-5); Specific Gravity,Urine 1.024 (1.001-1.035); Urobilinogen,Urine <2.0 mg/dL (<2.0); WBC,Urine 1 /hpf (0-5)
[2021-06-15 14:47] LABS: Partial Thromboplastin Time 26.2 sec (22.0-30.0); Prothrombin Time 10.4 sec (9.0-12.0)
[2021-06-15 14:50] LABS: Calcium 9.6 mg/dL (8.4-10.2); Potassium 4.1 mmol/L (3.5-5.1); Total Bilirubin 0.2 mg/dL (0.2-1.3); Total Protein 6.6 g/dL (6.3-8.2)
--- NOTE | 2021-06-15 15:09 | CT ---
EXAMINATION TYPE: CT brain wo con DATE OF EXAM: 06/15/2021 COMPARISON: None HISTORY: 65-year-old female seizure, dizziness, nausea TECHNIQUE: Examination was done in axial plane without intravenous contrast. Coronal and sagittal r econstructions performed. CT DLP: 1099.4 mGycm Automated exposure control for dose reduction was used. FINDINGS: Prominent streak and beam hardening artifact relating to coil mass and clip in the left intercommunic ating artery region causes some limitation. Allowing for this limitation, there is no evidence of acute intracranial hemorrhage, acute ischemic changes, mass, mass-effect, or extra-axial fluid collection. There is no effacement of cerebral sulc i or basal subarachnoid cisterns. There is no hydrocephalus. There is no midline shift. Ndiaye-white matter distinction is preserved. Mild cervical cortical volume loss. Small area of cortical encephalomalacia posterior left frontal lobe suggestive of prior vascular or t raumatic insult. 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 Mucosal thickening right ethmoid air cells. Mastoids are well pneumatized. Orbits and globes are intact. IMPRESSION: Mild cerebral atrophy. Previous coiling and clipping in the region of the anterior communicating haley ry. No acute intracranial abnormality seen.
--- NOTE | 2021-06-15 15:13 | XR ---
EXAMINATION TYPE: XR chest 2V DATE OF EXAM: 06/15/2021 COMPARISON: None HISTORY: 65-year-old female with fever TECHNIQUE: AP and lateral views FINDINGS: Heart mildly enlarged. Diffuse interstitial density and vascular prominence. There are prominent conv exity marginated edge projecting across the right upper lobe. No consolidation or pleural effusion. IMPRESSION: 1. Prominent convexly marginated edge projecting across the right upper lobe. This is favored to repr esent a skinfold. Correlate as to the possibility of a pneumothorax. If clinical concern, recommend r epeat PA view with expiration to ensure that this finding does not persist. 2. Mild cardiomegaly. Interstitial prominence. Correlate for possible bronchitis or asthma.
[2021-06-15] MEDS ORDERED: cefTRIAXone IN SWFI 1,000 MG/10 ML SYRINGE IVP STA (16:29)
--- NOTE | 2021-06-15 16:57 | XR ---
EXAMINATION TYPE: XR chest 2V DATE OF EXAM: 06/15/2021 COMPARISON: Same-day. HISTORY: Follow-up possible pneumothorax. TECHNIQUE: Inspiratory and expiratory AP views of the chest are obtained. FINDINGS: There is no focal air space opacity, pleural effusion, or pneumothorax seen. The cardiac silhouette size is within normal limits. The osseous structures are intact. IMPRESSION: No acute cardiopulmonary process.
[2021-06-15] MEDS ORDERED: NALOXONE 0.4 MG/ML 1 ML VIAL IV PRN (17:05)
[2021-06-15] MEDS ORDERED: IBUPROFEN 400 MG TAB PO PRN (17:05)
[2021-06-15] MEDS ORDERED: ONDANSETRON ODT 4 MG TAB PO PRN (17:08)
[2021-06-15] MEDS ORDERED: LORazepam 2 MG/ML INJ IV PRN (17:12)
[2021-06-15] MEDS ORDERED: ONDANSETRON 4 MG/2 ML VIAL IVP SCH (17:15)
--- NOTE | 2021-06-15 17:55 | P.HPIM ---
History of Present Illness H&P Date: 06/15/21 This is a 65-year-old female with past medical history noted below significant for underlying seizure disorder that presented to the emergency room with breakthrough seizure. Patient was in the ER yesterday and was diagnosed with pyelonephritis and sent home on antibiotic. Patient and her informed me that this morning she woke up at 6 in the morning and sewn after waking up she had a breakthrough seizure with generalized tremor and foaming from her mouth. Her told me that she was confused for a while. She then had 3 more seizures at home between 7 and 10 AM so brought her to the ER for further evaluation. In the ER, computed tomography scan of the head showed no acute findings. There is evidence of previous coiling and clipping in the anterior communicating artery lesion. Patient will be admitted to the hospital for further management. She is currently awake and alert. She denies any headache at this time. She told me that she was having severe headache this morning. Review of Systems Review of system: 14 points review of systems were obtained and were negative except to what were mentioned in the HPI. Past Medical History Past Medical History: Chest Pain / Angina, CVA/TIA, Hyperlipidemia, Hypertension, Myocardial Infarction ([place]), Seizure Disorder, Thyroid Disorder Additional Past Medical History / Comment(s): brain coils, ITP History of Any Multi-Drug Resistant Organisms: None Reported Past Surgical History: Heart Catheterization With Stent, Hysterectomy Past Psychological History: No Psychological Hx Reported Smoking Status: Current every day smoker Past Alcohol Use History: None Reported Past Drug Use History: Marijuana Medications and Allergies Home Medications Medication Instructions Recorded Confirmed Type Aspirin EC [Ecotrin Low Dose] 81 mg PO DAILY 06/14/21 06/15/21 History Cephalexin [Keflex] 500 mg PO Q6HR #40 cap 06/14/21 06/15/21 Rx Cholecalciferol (Vitamin D3) 125 mcg PO DAILY 06/14/21 06/15/21 History [Vitamin D3 (125 MCG = 5,000 IU)] Cyanocobalamin [Vitamin B-12] 500 mcg PO DAILY 06/14/21 06/15/21 History Folic Acid 1 mg PO DAILY 06/14/21 06/15/21 History Isosorbide Mononitrate ER [Imdur] 60 mg PO BID 06/14/21 06/15/21 History Levothyroxine Sodium [Synthroid] 88 mcg PO HS 06/14/21 06/15/21 History OXcarbazepine [Trileptal] 600 mg PO BID 06/14/21 06/15/21 History Ondansetron Odt [Zofran Odt] 4 mg PO Q8HR PRN #10 tab 06/14/21 06/15/21 Rx Ramipril 10 mg PO BID 06/14/21 06/15/21 History Rosuvastatin Calcium [Crestor] 40 mg PO Q48H 06/14/21 06/15/21 History Sertraline [Zoloft] 100 mg PO HS 06/14/21 06/15/21 History amLODIPine [Norvasc] 10 mg PO DAILY 06/14/21 06/15/21 History Allergies Allergy/AdvReac Type Severity Reaction Status Date / Time No Known Allergies Allergy Verified 06/15/21 14:03 Physical Exam Vitals: Vital Signs Temp Pulse Resp BP Pulse Ox 06/15/21 16:05 99.5 F 67 16 116/56 99 06/15/21 14:42 99.5 F 06/15/21 13:19 98.3 F 85 18 163/85 97 Intake and Output 06/15/21 06/15/21 06/15/21 06:59 14:59 22:59 Other: Weight 51.256 kg General: The patient is awake and alert, in no distress Eye: there is normal conjunctiva bilaterally. Neck: The neck is supple, there is no JVD. Cardiovascular: Normal S1-S2, no S3-S4, no murmurs. Respiratory: Lungs clear to auscultation bilaterally Gastrointestinal: Abdomen is soft, nontender Musculoskeletal: There is no pedal edema. Neurological:. Speech is normal. Skin: Skin is warm and dry Results CBC & Chem 7: 06/15/21 14:27 06/15/21 14:27 Labs: Abnormal Lab Results - Last 24 Hours (Table) 06/15/21 06/15/21 06/15/21 Range/Units 14:27 14:27 14:27 Neutrophils # 8.4 H (1.3-7.7) k/uL Lymphocytes # 0.7 L (1.0-4.8) k/uL Glucose 121 H (74-99) mg/dL AST 61 H (14-36) U/L Urine Protein 2+ H (Negative) Urine Glucose (UA) Trace H (Negative) Urine Blood Trace H (Negative) Urine Mucus Rare H (None) /hpf Assessment and Plan Assessment: 1. Underlying seizure disorder with breakthrough seizure. Possibly attributed to underlying UTI. Patient maintained on Trileptal at home. Levels ordered and pending. We will continue seizure precaution. I would add IV Keppra 750 mg twice daily for now awaiting neurology evaluation. Computed tomography scan of the head in the ER with no acute findings. Noted previous coiling and clipping of the anterior communicating artery. 2. Acute pyelonephritis of the left kidney, continue antibiotic with IV ceftriaxone 2 g daily. No evidence of sepsis. Urine culture pending. 3. Chronic medical problems: Hypertension, hypothyroidism, underlying depression 4. DVT prophylaxis with subcu Lovenox Today, I reviewed her medication list and lab work results. Continue seizure precaution. Patient and her updated about her current condition. All of their questions answered to their satisfaction.
[2021-06-15] MEDS ORDERED: levETIRAcetam IV 750 MG in SODIUM CHLORIDE 0.9% 100 ML IVPB ONE (18:00)
[2021-06-15] MEDS: ACETAMINOPHEN TAB 325 MG TAB PO PRN (18:18)
[2021-06-15] MEDS: SODIUM CHLORIDE 0.9% 1,000 ML IV SCH (18:19)
[2021-06-15] MEDS ORDERED: ATORVASTATIN 80 MG TAB PO SCH (21:00)
[2021-06-15] MEDS: OXcarbazepine 300 MG TAB PO SCH (21:26)
[2021-06-15] MEDS: SERTRALINE 100 MG TAB PO SCH (21:26)
[2021-06-15] MEDS: LEVOTHYROXINE 88 MCG TAB PO SCH (21:26)
[2021-06-15] MEDS: ISOSORBIDE MONONITRATE ER 60 MG TAB.ER.24H PO SCH (21:26)
[2021-06-15] MEDS: lisinopriL 20 MG TAB PO SCH (21:28)
[2021-06-16] MEDS: ONDANSETRON 4 MG/2 ML VIAL IVP SCH ×4 (00:08→22:40)
[2021-06-16] MEDS: SODIUM CHLORIDE 0.9% 1,000 ML IV SCH ×3 (00:09→17:23)
[2021-06-16] MEDS: levETIRAcetam IV 750 MG in SODIUM CHLORIDE 0.9% 100 ML IVPB SCH ×2 (05:09→17:22)
[2021-06-16] MEDS: amLODIPine 10 MG TAB PO SCH (08:58)
[2021-06-16] MEDS: ASPIRIN 81 MG PO SCH (08:58)
[2021-06-16] MEDS: CHOLECALCIFEROL 25 MCG (1000 IU) TABLET PO SCH (08:58)
[2021-06-16] MEDS: CYANOCOBALAMIN 500 MCG TAB PO SCH (08:59)
[2021-06-16] MEDS: FOLIC ACID 1 MG TAB PO SCH (08:59)
[2021-06-16] MEDS: OXcarbazepine 300 MG TAB PO SCH ×2 (08:59→20:59)
[2021-06-16] MEDS: lisinopriL 20 MG TAB PO SCH ×2 (08:59→20:59)
[2021-06-16] MEDS ORDERED: cefTRIAXone IN SWFI 1,000 MG/10 ML SYRINGE IVP SCH (09:00)
[2021-06-16] MEDS ORDERED: BENZOCAINE SPRAY 1 CAN MUCOUS MEM PRN (10:28)
--- NOTE | 2021-06-16 13:01 | P.PN ---
Subjective Progress Note Date: 06/16/21 Patient is doing fairly well today. She said that she is very tired as she did not sleep well over the last 2 days. No seizure activity since admission. Awaiting neurology evaluation. Objective - Vital Signs Vital signs: Vital Signs Temp 98.3 F 06/16/21 08:00 Pulse 53 L 06/16/21 08:00 Resp 16 06/16/21 08:00 BP 143/60 06/16/21 08:00 Pulse Ox 96 06/16/21 08:00 Intake & Output 06/15/21 06/16/21 06/16/21 18:59 06:59 18:59 Weight 51.256 kg 51.256 kg Other: Voiding Method Toilet # Voids 1 - Exam Review of system: 14 points review of systems were obtained and were negative except to what were mentioned in the HPI. - Labs CBC & Chem 7: 06/15/21 14:27 06/15/21 14:27 Labs: Abnormal Lab Results - Last 24 Hours (Table) 06/15/21 06/15/21 06/15/21 Range/Units 14:27 14:27 14:27 Neutrophils # 8.4 H (1.3-7.7) k/uL Lymphocytes # 0.7 L (1.0-4.8) k/uL Glucose 121 H (74-99) mg/dL AST 61 H (14-36) U/L Urine Protein 2+ H (Negative) Urine Glucose (UA) Trace H (Negative) Urine Blood Trace H (Negative) Urine Mucus Rare H (None) /hpf Assessment and Plan Assessment: This is a 65-year-old female with past medical history noted below the presented to the emergency room after having multiple seizures episode at home. She was evaluated in the ER and admitted to the hospital for further management of her medical problems noted below. 1. Underlying seizure disorder with breakthrough seizure. Possibly attributed to underlying UTI. Patient maintained on Trileptal at home. Levels within therapeutic range. We will continue seizure precaution. I added IV Keppra 750 mg twice daily for now awaiting neurology evaluation. Computed tomography scan of the head in the ER with no acute findings. Noted previous coiling and clipping of the anterior communicating artery. 2. Acute pyelonephritis of the left kidney, continue antibiotic with IV ceftriaxone 2 g daily. No evidence of sepsis. Urine culture pending. 3. Chronic medical problems: Hypertension, hypothyroidism, underlying depression 4. DVT prophylaxis with subcu Lovenox Today, I reviewed her medication list and lab work results. Continue seizure precaution.
[2021-06-16] MEDS: ISOSORBIDE MONONITRATE ER 60 MG TAB.ER.24H PO SCH ×2 (17:23→20:59)
[2021-06-16] MEDS: SERTRALINE 100 MG TAB PO SCH (20:59)
[2021-06-16] MEDS: LEVOTHYROXINE 88 MCG TAB PO SCH (20:59)
--- NOTE | 2021-06-16 23:09 | P.CNNES ---
History of Present Illness Consult date: 06/16/21 Requesting physician: Charles Mccartney Reason for Consult: Intractable seizures History of Present Illness: Patient is a 65-year-old female came to the hospital yesterday at 1:18 PM for multiple seizures. Patient states that she has history of seizure disorder for last 6 years. She used to have seizure once a year. However yesterday she had 4 seizures [id number]. She was sleeping when she had her first seizure. Then every 20-30 minutes she had a seizure, total of 4. Patient states that she is told that she becomes stiff, as shakes and then "blow bubbles". She bit her gum, as she is edentulous in the upper gums. She also loses control of urine. Patient states that all seizures have occurred while she has been sleeping at night. Never occurred while she was awake. She follows up with a neurologist [facility]. Patient completely denies missing any doses of Trileptal. Vital signs on arrival blood pressure 163/85, pulse rate 85, temperature 98.3. CT head showed mild cerebral atrophy. Previous coiling and clipping in the region of anterior communicating artery. No acute intracranial abnormality seen. Small area of cortical encephalomalacia posterior left frontal lobe suggestive of prior vascular or traumatic insults. Chest x-ray showed Mild cardiomegaly and interstitial prominence. EKG shows normal sinus rhythm. Patient's blood test shows normal CBC, PT/PTT, normal Chem-7. AST 61, ALT 34. UA negative. Trileptal level is 18.6(10-35) Patient's home medications include Zoloft 100 mg, B12 500 g, ramipril, folic acid, Crestor, vitamin D, aspirin 81 mg, Trileptal 600 mg twice a day amlodipine. 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 Also has history of an [place]. Review of Systems As above. All other review of systems unremarkable. Past Medical History Past Medical History: Chest Pain / Angina, CVA/TIA, Hyperlipidemia, Hypertension, Myocardial Infarction ([place]), Seizure Disorder, Thyroid Disorder Additional Past Medical History / Comment(s): brain coils, ITP Last Myocardial Infarction Date:: 2007 History of Any Multi-Drug Resistant Organisms: None Reported Past Surgical History: Heart Catheterization With Stent, Hysterectomy Past Anesthesia/Blood Transfusion Reactions: No Reported Reaction Date of Last Stent Placement:: 2007 Past Psychological History: No Psychological Hx Reported Smoking Status: Current every day smoker Past Alcohol Use History: None Reported Past Drug Use History: Marijuana Medications and Allergies Home Medications Medication Instructions Recorded Confirmed Type Aspirin EC [Ecotrin Low Dose] 81 mg PO DAILY 06/14/21 06/15/21 History Cephalexin [Keflex] 500 mg PO Q6HR #40 cap 06/14/21 06/15/21 Rx Cholecalciferol (Vitamin D3) 125 mcg PO DAILY 06/14/21 06/15/21 History [Vitamin D3 (125 MCG = 5,000 IU)] Cyanocobalamin [Vitamin B-12] 500 mcg PO DAILY 06/14/21 06/15/21 History Folic Acid 1 mg PO DAILY 06/14/21 06/15/21 History Isosorbide Mononitrate ER [Imdur] 60 mg PO BID 06/14/21 06/15/21 History Levothyroxine Sodium [Synthroid] 88 mcg PO HS 06/14/21 06/15/21 History OXcarbazepine [Trileptal] 600 mg PO BID 06/14/21 06/15/21 History Ondansetron Odt [Zofran Odt] 4 mg PO Q8HR PRN #10 tab 06/14/21 06/15/21 Rx Ramipril 10 mg PO BID 06/14/21 06/15/21 History Rosuvastatin Calcium [Crestor] 40 mg PO Q48H 06/14/21 06/15/21 History Sertraline [Zoloft] 100 mg PO HS 06/14/21 06/15/21 History amLODIPine [Norvasc] 10 mg PO DAILY 06/14/21 06/15/21 History Allergies Allergy/AdvReac Type Severity Reaction Status Date / Time No Known Allergies Allergy Verified 06/15/21 14:03 Physical Examination - Vital Signs Vital Signs: Vital Signs Temp Pulse Resp BP Pulse Ox 06/16/21 13:56 99.1 F 65 16 137/68 93 L 06/16/21 08:00 98.3 F 53 L 16 143/60 96 06/16/21 01:53 98 F 60 16 111/46 95 06/15/21 20:00 16 06/15/21 19:35 99.1 F 63 16 133/61 97 Intake and Output 06/16/21 06/16/21 06/16/21 06:59 14:59 22:59 Other: # Voids 1 3 Patient is a late middle aged female, in no acute distress. Patient is alert awake oriented to time place and person. Speech and language functions are normal. No aphasia or dysarthria. Attention, concentration and fund of knowledge is adequate. On cranial examination, pupils are round and reacting to light, visual mi are full on confrontation, extraocular muscles are intact with no nystagmus. Face is symmetric, tongue protrudes to the midline. Palatal elevation and sensation normal, hearing and shoulder shrug normal, facial sensation normal. Shoulder shrug normal. She has mild head tremors. On muscle strength testing, there is no pronator drift and the strength is normal in arms and legs distally and proximally. Deep tendon reflexes are 1+ and plantars downgoing. Sensory to touch is equal with no neglect. Cerebellar function showed no ataxia for [id number] testing. No dysdiadochokinesia. Tone and bulk of muscles normal. Gait normal. On general examination, there is no carotid bruit or murmur, S1-S2 audible. Abdomen is soft nontender. Chest is clear. Peripheral pulses are present. No edema. Results - Laboratory Findings CBC and BMP: 06/15/21 14:27 06/15/21 14:27 Abnormal Lab Findings: Abnormal Labs 06/15/21 06/15/21 06/15/21 14:27 14:27 14:27 Neutrophils # 8.4 H Lymphocytes # 0.7 L Glucose 121 H AST 61 H Urine Protein 2+ H Urine Glucose (UA) Trace H Urine Blood Trace H Urine Mucus Rare H Assessment and Plan Assessment: * Seizure disorder, came with breakthrough seizures of unclear etiology. Patient is on Trileptal, compliant with the medication. * History of cerebral aneurysm status post coiling in 2006. * Hypertension * Coronary artery disease Plan: * Patient states that she is tolerating Trileptal well with no side effects. Her Trileptal level is in the mid normal range. I would increase Trileptal to 750 mg twice a day. If she has any breakthrough seizure, then I would recommend adding another AED. At this time, we will hold off on adding any n ew antiepileptic medication. * Patient was informed of [place] state law of no driving unless seizure free for 6 months, climbing ladders, operate dangerous machinery or unsupervised swimming. Patient claims that all her seizures have occurred while she was asleep, never occurred while she was awake. * Neurologically clear for discharge. May follow up with her neurologist in 1-2 weeks to check Trileptal level and sodium level.
[2021-06-17] MEDS: SODIUM CHLORIDE 0.9% 1,000 ML IV SCH ×2 (00:56→07:51)
[2021-06-17 02:46] VITALS: PULSE 63
[2021-06-17 07:45] VITALS: BP 162/80; RESP 16; TEMP 98.2
[2021-06-17] MEDS: ONDANSETRON 4 MG/2 ML VIAL IVP SCH (07:48)
[2021-06-17] MEDS: CYANOCOBALAMIN 500 MCG TAB PO SCH (07:49)
[2021-06-17] MEDS: ASPIRIN 81 MG PO SCH (07:49)
[2021-06-17] MEDS: lisinopriL 20 MG TAB PO SCH (07:49)
[2021-06-17] MEDS: amLODIPine 10 MG TAB PO SCH (07:49)
[2021-06-17] MEDS: CHOLECALCIFEROL 25 MCG (1000 IU) TABLET PO SCH (07:49)
[2021-06-17] MEDS: ISOSORBIDE MONONITRATE ER 60 MG TAB.ER.24H PO SCH (07:49)
[2021-06-17] MEDS: FOLIC ACID 1 MG TAB PO SCH (07:49)
[2021-06-17] MEDS ORDERED: OXcarbazepine 300 MG TAB PO SCH (09:00)
[2021-06-17] MEDS: ACETAMINOPHEN TAB 325 MG TAB PO PRN (11:54)
--- NOTE | 2021-06-17 12:13 | P.DS ---
Providers Date of admission: 06/15/21 18:44 Expected date of discharge: 06/17/21 Attending physician: Jolene Quinn DO Consults: 06/15/21 17:07 Consult Physician Routine Consulting Provider: Shawn Dorantes Consult Reason/Comments: intractable seizures Do you want consulting provider notified?: Yes Primary care [facility] Course: This is a 65-year-old female with past medical history noted below the presented to the emergency room after having multiple seizures episode at home. She was evaluated in the ER and admitted to the hospital for further management of her medical problems noted below. 1. Underlying seizure disorder with breakthrough seizure. Possibly attributed to underlying UTI. Patient maintained on Trileptal at home. Levels within therapeutic range. Computed tomography scan of the head in the ER with no acute findings. Noted previous coiling and clipping of the anterior communicating artery. 2. Acute pyelonephritis of the left kidney, continue antibiotic with IV ceftriaxone 2 g daily. No evidence of sepsis. Urine culture negative 3. Chronic medical problems: Hypertension, hypothyroidism, underlying depression Patient was seen and evaluated by me on the day of discharge. She was complaining of mild headache. She is looking forward to be discharged home. Trileptal dose was increased by neurology to 750 mg daily. Patient and her given clear instruction by me on the dose up date. She will finish 3 more days of antibiotic with Keflex. She'll be discharged home in a stable condition. She will follow-up with her neurologist in [place] as directed Patient Condition at Discharge: Fair Plan - Discharge Summary Discharge Rx Participant: Yes New Discharge Prescriptions: New OXcarbazepine [Trileptal] 600 mg PO BID #60 tab OXcarbazepine [Trileptal] 150 mg PO BID #60 tablet Continue Sertraline [Zoloft] 100 mg PO HS Cyanocobalamin [Vitamin B-12] 500 mcg PO DAILY Ramipril 10 mg PO BID Levothyroxine Sodium [Synthroid] 88 mcg PO HS Isosorbide Mononitrate ER [Imdur] 60 mg PO BID Folic Acid 1 mg PO DAILY Ondansetron Odt [Zofran ODT] 4 mg PO Q8HR PRN #10 tab PRN Reason: Nausea Rosuvastatin Calcium [Crestor] 40 mg PO Q48H Cholecalciferol (Vitamin D3) [Vitamin D3 (125 MCG = 5,000 IU)] 125 mcg PO DAILY Aspirin EC [Ecotrin Low Dose] 81 mg PO DAILY amLODIPine [Norvasc] 10 mg PO DAILY Cephalexin [Keflex] 500 mg PO Q6HR #40 cap Discontinued OXcarbazepine [Trileptal] 600 mg PO BID Discharge Medication List Aspirin EC [Ecotrin Low Dose] 81 mg PO DAILY 06/14/21 [History] Cephalexin [Keflex] 500 mg PO Q6HR #40 cap 06/14/21 [Rx] Cholecalciferol (Vitamin D3) [Vitamin D3 (125 MCG = 5,000 IU)] 125 mcg PO DAILY 06/14/21 [History] Cyanocobalamin [Vitamin B-12] 500 mcg PO DAILY 06/14/21 [History] Folic Acid 1 mg PO DAILY 06/14/21 [History] Isosorbide Mononitrate ER [Imdur] 60 mg PO BID 06/14/21 [History] Levothyroxine Sodium [Synthroid] 88 mcg PO HS 06/14/21 [History] Ondansetron Odt [Zofran ODT] 4 mg PO Q8HR PRN #10 tab 06/14/21 [Rx] Ramipril 10 mg PO BID 06/14/21 [History] Rosuvastatin Calcium [Crestor] 40 mg PO Q48H 06/14/21 [History] Sertraline [Zoloft] 100 mg PO HS 06/14/21 [History] amLODIPine [Norvasc] 10 mg PO DAILY 06/14/21 [History] OXcarbazepine [Trileptal] 150 mg PO BID #60 tablet 06/17/21 [Rx] OXcarbazepine [Trileptal] 600 mg PO BID #60 tab 06/17/21 [Rx] Follow up Appointment(s)/Referral(s): Mihaela Lim MD [Primary Care Provider] - 1-2 days (office closed at time of discharge. Please call to make appointment ) Discharge Disposition: HOME SELF-CARE
== END 2021-06-17 12:44 | disposition home or self-care (01) | DRG 690 ==
LOC: EC 13:18 → 4SSUR 18:44
PROVIDERS: ADMIT Internal Medicine; ATTEND Internal Medicine
DX: N10 Acute pyelonephritis (principal); G40.919 Epilepsy, unspecified, intractable, without status epilepticus; Z20.822 Contact with and (suspected) exposure to COVID-19; E03.9 Hypothyroidism, unspecified; E78.5 Hyperlipidemia, unspecified; F17.200 Nicotine dependence, unspecified, uncomplicated; F32.9 Major depressive disorder, single episode, unspecified; G93.89 Other specified disorders of brain; I10 Essential (primary) hypertension; I25.10 Atherosclerotic heart disease of native coronary artery without angina pectoris; I25.2 Old myocardial infarction; Z79.82 Long term (current) use of aspirin; Z79.890 Hormone replacement therapy; Z79.899 Other long term (current) drug therapy; Z86.73 Personal history of transient ischemic attack (TIA), and cerebral infarction without residual deficits; Z90.710 Acquired absence of both cervix and uterus
CPT/HCPCS: 36415; 70450; 71046; 74177; 80053; 80183; 81001; 82150; 83605; 83690; 85025; 85610; 85730; 87040; 87086; 87635; 93005

== ENCOUNTER → 2021-12-28 | Outpatient (CLI) | payer MEDICARE, BC ==
--- NOTE | 2021-12-28 11:47 | CT ---
EXAMINATION TYPE: CT chest w con DATE OF EXAM: 12/28/2021 COMPARISON: CT dated 01/02/2021 HISTORY: Pulmonary nodules CT DLP: 111.5 mGycm Automated exposure control for dose reduction was used. TECHNIQUE: CT scan of the chest is performed with IV Contrast, patient injected with 100 mL of Isovue 300. FINDINGS: The previously described tiny left upper lobe and right upper lobe nodules are unchanged, consistent with benign nodules and requiring no further follow-up. Newly seen elongated 4 mm faint nodule at the anterior aspect of the right upper lobe inferiorly (image #[id number], series 4). Scattered bilateral basal pulmonary atelectasis. Grossly unremarkable lungs otherwise. Patent central airways. No pleural or pe ricardial effusion. Slight left cardiac enlargement, please correlate with echocardiographic results. Scattered arterial atherosclerotic calcifications with coronary arterial calcifications. The pulmonary trunk measures 2. 6 cm. Tiny hypodensity in the left thyroid lobe, please correlate with the thyroid ultrasound results . No progressive lymphadenopathy in the chest. Unremarkable upper abdomen. Osteopenia. Degenerative c hanges of the midthoracic spine. Stable T3 upper endplate depression. IMPRESSION: Newly seen 4 mm faint nodule in the right upper lung lobe as described above, likely representing an inflammatory/infectious nodule. Precautionary follow-up CT scan in 3-6 months can be considered. No o ther definite new or progressive lung nodule identified. Incidental findings as described above.
== END | disposition home or self-care (01) ==
LOC: RADCTMAIN 08:04
PROVIDERS: ATTEND Internal Medicine
DX: R91.8 Other nonspecific abnormal finding of lung field (principal); J98.11 Atelectasis; I25.10 Atherosclerotic heart disease of native coronary artery without angina pectoris; I51.7 Cardiomegaly; M85.88 Other specified disorders of bone density and structure, other site; M47.814 Spondylosis without myelopathy or radiculopathy, thoracic region
CPT/HCPCS: 71260; Q9967

== ENCOUNTER 2022-04-07 12:08 | Inpatient (IN) | payer MEDICARE, BC ==
[2022-04-07] MEDS ORDERED: SODIUM CHLORIDE 0.9% 1,000 ML IV STA (12:45)
[2022-04-07] MEDS ORDERED: MECLIZINE 12.5 MG TAB PO STA (12:46)
[2022-04-07] MEDS ORDERED: METOCLOPRAMIDE 5 MG/ML 2 ML VIAL IVP STA (12:46)
--- NOTE | 2022-04-07 12:49 | ED ---
General Adult HPI - General Chief complaint: Nausea/Vomiting/Diarrhea Stated complaint: Vomiting Time Seen by Provider: 04/07/22 12:11 Source: patient, family, EMS, RN notes reviewed Mode of arrival: EMS Limitations: no limitations - History of Present Illness Initial comments: Patient is a pleasant 66-year-old female presenting to the emergency department with nausea vomiting and feeling off balance. Onset of symptoms was 4 days ago. Patient and she saw her neurologist that day. Symptoms are mostly at nighttime however today in the daytime. Patient feels off balance and has fallen a couple times. Patient has nausea and has vomited. Patient does feel dizzy. Dizziness worsens with upright position. No confusion. No speech problems. No weakness. No history of similar symptoms previous sleep. Patient does have history of brain aneurysm repair. Patient does have occasional double vision which is mild at this time. - Related Data Home Medications Medication Instructions Recorded Confirmed Aspirin EC [Ecotrin Low Dose] 81 mg PO DAILY 06/14/21 04/07/22 Cholecalciferol (Vitamin D3) 125 mcg PO DAILY 06/14/21 04/07/22 [Vitamin D3 (125 MCG = 5,000 IU)] Folic Acid 1 mg PO DAILY 06/14/21 04/07/22 Isosorbide Mononitrate ER [Imdur] 60 mg PO BID 06/14/21 04/07/22 Levothyroxine Sodium [Synthroid] 88 mcg PO DAILY 06/14/21 04/07/22 Ramipril 10 mg PO BID 06/14/21 04/07/22 Rosuvastatin Calcium [Crestor] 40 mg PO Q48H 06/14/21 06/15/21 Sertraline [Zoloft] 100 mg PO DAILY 06/14/21 04/07/22 Melatonin 10mg Gummy 30 mg PO HS 04/07/22 04/07/22 OXcarbazepine [Trileptal] 600 mg PO BID 04/07/22 04/07/22 amLODIPine [Norvasc] 5 mg PO DAILY 04/07/22 04/07/22 Allergies Allergy/AdvReac Type Severity Reaction Status Date / Time No Known Allergies Allergy Verified 04/07/22 15:48 Review of Systems ROS Statement: Those systems with pertinent positive or pertinent negative responses have been documented in the HPI. ROS Other: All systems not noted in ROS Statement are negative. Constitutional: Denies: fever Eyes: Reports: vision change. Denies: eye pain ENT: Denies: ear pain Respiratory: Denies: cough Cardiovascular: Denies: chest pain Endocrine: Denies: fatigue Gastrointestinal: Reports: nausea, vomiting. Denies: abdominal pain Musculoskeletal: Denies: back pain Skin: Denies: rash Neurological: Reports: as per HPI, vertigo Past Medical History Past Medical History: Chest Pain / Angina, CVA/TIA, Hyperlipidemia, Hypertension, Myocardial Infarction ([place]), Seizure Disorder, Thyroid Disorder Additional Past Medical History / Comment(s): brain coils, ITP Last Myocardial Infarction Date:: 2007 History of Any Multi-Drug Resistant Organisms: None Reported Past Surgical History: Heart Catheterization With Stent, Hysterectomy Past Anesthesia/Blood Transfusion Reactions: No Reported Reaction Date of Last Stent Placement:: 2007 Past Psychological History: No Psychological Hx Reported Smoking Status: Current every day smoker Past Alcohol Use History: None Reported Past Drug Use History: Marijuana General Exam Limitations: no limitations General appearance: alert, in no apparent distress Head exam: Present: atraumatic, normocephalic Eye exam: Present: normal appearance, PERRL, EOMI, nystagmus (Horizontal nystagmus) ENT exam: Present: normal oropharynx Neck exam: Present: normal inspection Respiratory exam: Present: normal lung sounds bilaterally Cardiovascular Exam: Present: regular rate, normal rhythm GI/Abdominal exam: Present: soft. Absent: tenderness Extremities exam: Present: normal inspection, full ROM Neurological exam: Present: alert, oriented X3, CN II-XII intact (Note: Nystagmus present). Absent: motor sensory deficit Expanded Neurological exam: Present: protecting the airway Patient oriented to: Present: person, place, time Speech: Present: fluid speech Cranial nerves: EOM's Intact: Normal, Facial Sensation: Normal Cerebellar function: Finger to Nose: Normal Sensory exam: Upper Extremity Light Touch: Normal, Lower Extremity Light Touch: Normal Motor strength exam: RUE: 5, LUE: 5, RLE: 5, LLE: 5 Eye Response: (4) open spontaneously Motor Response: (6) obeys commands Verbal Response: (5) oriented Psychiatric exam: Present: normal affect, normal mood Skin exam: Present: normal color Course Vital Signs 04/07/22 04/07/22 12:14 15:27 Temperature 97.7 F 98.7 F Pulse Rate 56 L 66 Respiratory 15 18 Rate Blood Pressure 193/87 165/86 O2 Sat by Pulse 98 99 Oximetry EKG Findings - EKG Comments: EKG Findings:: Sinus bradycardia 53. [place] 159. QRS 110. QT 4:30. QTC 41. Normal axis. LVH. No acute ST change. Medical Decision Making - Medical Decision Making Patient reevaluated and slightly improved. Patient and family updated. Case discussed with Dr. crescencio romano [facility] who will admit covering Dr. Schroeder. - Lab Data Result diagrams: 04/07/22 12:47 04/07/22 12:47 Lab Results 04/07/22 04/07/22 04/07/22 Range/Units 12:47 12:47 12:47 WBC 6.1 (3.8-10.6) k/uL RBC 4.27 (3.80-5.40) m/uL Hgb 13.4 (11.4-16.0) gm/dL Hct 40.7 (34.0-46.0) % MCV 95.2 (80.0-100.0) fL MCH 31.2 (25.0-35.0) pg MCHC 32.8 (31.0-37.0) g/dL RDW 13.8 (11.5-15.5) % Plt Count 255 (150-450) k/uL MPV 7.5 Neutrophils % 84 % Lymphocytes % 10 % Monocytes % 3 % Eosinophils % 1 % Basophils % 0 % Neutrophils # 5.1 (1.3-7.7) k/uL Lymphocytes # 0.6 L (1.0-4.8) k/uL Monocytes # 0.2 (0-1.0) k/uL Eosinophils # 0.1 (0-0.7) k/uL Basophils # 0.0 (0-0.2) k/uL PT 10.3 (9.0-12.0) sec INR 0.9 (<1.2) APTT 28.0 (22.0-30.0) sec Sodium 139 (137-145) mmol/L Potassium 3.3 L (3.5-5.1) mmol/L Chloride 107 (98-107) mmol/L Carbon Dioxide 25 (22-30) mmol/L Anion Gap 7 mmol/L BUN 18 H (7-17) mg/dL Creatinine 1.07 H (0.52-1.04) mg/dL Est GFR (CKD-EPI)AfAm 64 (>60 ml/min/1.73 sqM) Est GFR (CKD-EPI)NonAf 55 (>60 ml/min/1.73 sqM) Glucose 131 H (74-99) mg/dL Calcium 9.2 (8.4-10.2) mg/dL Total Bilirubin 0.3 (0.2-1.3) mg/dL AST 28 (14-36) U/L ALT 18 (4-34) U/L Alkaline Phosphatase 76 (38-126) U/L Troponin I (0.000-0.034) ng/mL Total Protein 7.0 (6.3-8.2) g/dL Albumin 4.4 (3.5-5.0) g/dL 04/07/22 Range/Units 12:47 WBC (3.8-10.6) k/uL RBC (3.80-5.40) m/uL Hgb (11.4-16.0) gm/dL Hct (34.0-46.0) % MCV (80.0-100.0) fL MCH (25.0-35.0) pg MCHC (31.0-37.0) g/dL RDW (11.5-15.5) % Plt Count (150-450) k/uL MPV Neutrophils % % Lymphocytes % % Monocytes % % Eosinophils % % Basophils % % Neutrophils # (1.3-7.7) k/uL Lymphocytes # (1.0-4.8) k/uL Monocytes # (0-1.0) k/uL Eosinophils # (0-0.7) k/uL Basophils # (0-0.2) k/uL PT (9.0-12.0) sec INR (<1.2) APTT (22.0-30.0) sec Sodium (137-145) mmol/L Potassium (3.5-5.1) mmol/L Chloride (98-107) mmol/L Carbon Dioxide (22-30) mmol/L Anion Gap mmol/L BUN (7-17) mg/dL Creatinine (0.52-1.04) mg/dL Est GFR (CKD-EPI)AfAm (>60 ml/min/1.73 sqM) Est GFR (CKD-EPI)NonAf (>60 ml/min/1.73 sqM) Glucose (74-99) mg/dL Calcium (8.4-10.2) mg/dL Total Bilirubin (0.2-1.3) mg/dL AST (14-36) U/L ALT (4-34) U/L Alkaline Phosphatase (38-126) U/L Troponin I 0.031 (0.000-0.034) ng/mL Total Protein (6.3-8.2) g/dL Albumin (3.5-5.0) g/dL - Radiology Data Radiology results: report reviewed (CT brain and CT angios shows no acute p rocess. Previous surgery.), image reviewed (Chest x-ray shows no acute process) Disposition Clinical Impression: Nausea & vomiting, Vertigo Disposition: ADMITTED IP TO THIS HOSP Is patient prescribed a controlled substance at d/c from ED?: No Referrals: Charley Woody MD [Primary Care Provider] - 1-2 days Time of Disposition: 15:55
[2022-04-07 13:01] LABS: Basophils % (A) 0 %; Eosinophils # (A) 0.1 k/uL (0-0.7); Eosinophils % (A) 1 %; HCT 40.7 % (34.0-46.0); HGB 13.4 gm/dL (11.4-16.0); Lymphocytes # (A) 0.6 k/uL (1.0-4.8); Lymphocytes % (A) 10 %; MCH 31.2 pg (25.0-35.0); MCHC 32.8 g/dL (31.0-37.0); MCV 95.2 fL (80.0-100.0); Mean Platelet Volume 7.5; Monocytes # (A) 0.2 k/uL (0-1.0); Monocytes % (A) 3 %; Neutrophils # (A) 5.1 k/uL (1.3-7.7); Neutrophils % (A) 84 %; Platelet Count 255 k/uL (150-450); RBC 4.27 m/uL (3.80-5.40); RDW 13.8 % (11.5-15.5); WBC 6.1 k/uL (3.8-10.6)
[2022-04-07 13:10] LABS: Albumin 4.4 g/dL (3.5-5.0); Calcium 9.2 mg/dL (8.4-10.2); Potassium 3.3 mmol/L (3.5-5.1); Total Bilirubin 0.3 mg/dL (0.2-1.3)
[2022-04-07 13:11] LABS: INR 0.9 (<1.2); Prothrombin Time 10.3 sec (9.0-12.0)
--- NOTE | 2022-04-07 13:41 | XR ---
EXAMINATION TYPE: XR chest 2V DATE OF EXAM: 04/07/2022 12:59 PM COMPARISON: Chest radiographs from 12/28/2021 06/15/2021 TECHNIQUE: XR chest 2V Frontal and lateral views of the chest. CLINICAL INDICATION:Female, 66 years old with history of altered mental status; FINDINGS: Lungs/Pleura: There is no evidence of pleural effusion, focal consolidation, or pneumothorax. Pulmonary vascularity: Unremarkable. Heart/mediastinum: Cardiomediastinal silhouette is prominent in size. Musculoskeletal: No acute osseous pathology. IMPRESSION: No acute cardiopulmonary disease/process.
--- NOTE | 2022-04-07 14:33 | CT ---
EXAMINATION TYPE: CT brain wo con DATE OF EXAM: 04/07/2022 COMPARISON: 06/15/2021 HISTORY: Neuro deficit CT DLP: 310.6 mGycm Automated exposure control for dose reduction was used. Ventricles have normal size. There is no mass effect or midline shift. There is no evidence of intrac ranial hemorrhage. There is dense metal artifact at the anterior [place] of Tran consistent with ane urysm surgery. Mastoid sinuses appear normal. Skull base is intact. Calvarium is intact. IMPRESSION: Previous surgery. No acute intracranial abnormality. No change compared to old exam.
--- NOTE | 2022-04-07 14:39 | CT ---
EXAMINATION TYPE: CT angio head neck DATE OF EXAM: 04/07/2022 COMPARISON: None HISTORY: Neuro deficit CT DLP: 1068.6 mGycm Automated exposure control for dose reduction was used. CONTRAST: Performed with IV Contrast, patient injected with 100 mL of Isovue 370. Images obtained from the aortic arch to the vertex of the brain with IV contrast. There are Three-D p ostprocessed images. There is arterial flow in both subclavian arteries. There is arterial flow in the common internal and external carotid arteries bilaterally. There is minimal plaque formation at the carotid artery bifur cations and less than 15% stenosis. There is arterial flow in both vertebral arteries. No evidence of carotid or vertebral artery aneurysm or dissection. There is arterial flow in the vertebrobasilar ar blane system. There is metal artifact from apparent aneurysm surgery at the anterior communicating art kiley. There is arterial flow in the anterior middle and posterior cerebral arteries. There is no mass effect. No sign of intracranial aneurysm or neovascularity. No sign of hemodynamic s tenosis. There is normal enhancement of the venous sinuses. IMPRESSION: Negative CT angiogram of the brain. Negative CT angiogram of the neck. Minimal plaque at the carotid artery bifurcations.
[2022-04-07] MEDS ORDERED: NALOXONE 0.4 MG/ML 1 ML VIAL IV PRN ×2 (15:55→18:26)
[2022-04-07] MEDS ORDERED: METOCLOPRAMIDE 5 MG/ML 2 ML VIAL IVP PRN (15:57)
[2022-04-07] MEDS ORDERED: MAGNESIUM HYDROXIDE 2,400 MG/10 ML CUP PO PRN (18:26)
[2022-04-07] MEDS ORDERED: ACETAMINOPHEN TAB 325 MG TAB PO PRN (18:26)
[2022-04-07] MEDS ORDERED: PROCHLORPERAZINE 5 MG TAB PO PRN (18:26)
[2022-04-07] MEDS ORDERED: bisacodyL 5 MG TABLET.DR PO PRN (18:26)
--- NOTE | 2022-04-07 18:44 | P.HPIM ---
History of Present Illness H&P Date: 04/07/22 Chief Complaint: Double vision with nausea and vomiting status post fall 2 History of present illness: 66-year-old female with past medical history significant for seizure disorder, CVA status post stent in 2006. History of brain aneurysm status post coiling in 2008. Patient presented to the emergency room with a chief complaint of intractable nausea vomiting associated with the patient and falls 2 days leading to small laceration to the left eyelid. Patient denies any loss of consciousness. Patient denies any focal neurological weakness but she stated that she is out of balance and ataxic. Workup in emergency room including Negative CT angiogram of the brain, negative CT angiogram of the neck minimal plaque at the carotid artery bifurcation. CT of the brain without contrast unremarkable. Patient denied any seizure activity patient denies any fever or chills. Patient denies any abdominal pain. Patient denied any shortness of breath or cough. Patient is a smoker continue to smoke she smoked for 45-50 years she stated that a pack of SIRS will last for 3 days. Patient denies any history of alcohol abuse. Patient stated that she lost 45 pounds over the past year. Review of systems: All 14 review of systems evaluated and all negative except for above. Physical examination: General: non toxic, no distress, appears older than stated age. Derm: warm, dry Head: atraumatic, normocephalic, symmetric Eyes: EOMI, no lid lag, anicteric sclera Mouth: no lip lesion, mucus membranes moist Cardiovascular: S1S2 reg, no murmur, positive posterior tibial pulse bilateral, Lungs: CTA bilateral, no rhonchi, no rales , no accessory muscle use Abdominal: soft, nontender to palpation, no guarding, no appreciable organomegaly Ext: no gross muscle atrophy, no edema, no contractures Neuro: CN II-XI grossly intact, no focal neuro deficits Psych: Alert, oriented, appropriate affect Assessment and plan: #Double vision with ataxia and nausea vomiting status post fall -Patient had a stroke in 2006 status post stent -Suspicious for brain stem or cerebellar acute CVA -MRI per neurology -Resume aspirin, Plavix and high-dose statins -Check LDL A1c and 2-D echo #History of seizure disorder -Resume home medications -Seizure precaution and when necessary Ativan #History of brain aneurysm status post coiling 2008 #Acute dehydration -secondary to nausea and vomiting -IV fluids when necessary antiemetics #Unexplained weight loss -CT chest abdomen and pelvis to rule out malignancy #Hypothyroidism -Resume levothyroxine check TSH #Essential hypertension -Resume all medications #Ongoing tobacco abuse -Patient was counseled regarding smoking cessation -Nicotine patch #DVT prophylaxis with Lovenox #Full code Past Medical History Past Medical History: Chest Pain / Angina, CVA/TIA, Hyperlipidemia, Hypertension, Myocardial Infarction ([place]), Seizure Disorder, Thyroid Disorder Additional Past Medical History / Comment(s): brain coils, ITP Last Myocardial Infarction Date:: 2007 History of Any Multi-Drug Resistant Organisms: None Reported Past Surgical History: Heart Catheterization With Stent, Hysterectomy Past Anesthesia/Blood Transfusion Reactions: No Reported Reaction Date of Last Stent Placement:: 2007 Past Psychological History: No Psychological Hx Reported Smoking Status: Current every day smoker Past Alcohol Use History: None Reported Past Drug Use History: Marijuana Medications and Allergies Home Medications Medication Instructions Recorded Confirmed Type Aspirin EC [Ecotrin Low Dose] 81 mg PO DAILY 06/14/21 04/07/22 History Cholecalciferol (Vitamin D3) 125 mcg PO DAILY 06/14/21 04/07/22 History [Vitamin D3 (125 MCG = 5,000 IU)] Folic Acid 1 mg PO DAILY 06/14/21 04/07/22 History Isosorbide Mononitrate ER [Imdur] 60 mg PO BID 06/14/21 04/07/22 History Levothyroxine Sodium [Synthroid] 88 mcg PO DAILY 06/14/21 04/07/22 History Ramipril 10 mg PO BID 06/14/21 04/07/22 History Rosuvastatin Calcium [Crestor] 40 mg PO Q48H 06/14/21 04/07/22 History Sertraline [Zoloft] 100 mg PO DAILY 06/14/21 04/07/22 History Carvedilol [Coreg] 3.125 mg PO BID 04/07/22 04/07/22 History Melatonin 10mg Gummy 30 mg PO HS 04/07/22 04/07/22 History OXcarbazepine [Trileptal] 600 mg PO BID 04/07/22 04/07/22 History Zonisamide 100 mg PO HS 04/07/22 04/07/22 History Zonisamide [Zonegran] 50 mg PO HS 04/07/22 04/07/22 History amLODIPine [Norvasc] 5 mg PO DAILY 04/07/22 04/07/22 History Allergies Allergy/AdvReac Type Severity Reaction Status Date / Time No Known Allergies Allergy Verified 04/07/22 15:48 Physical Exam Vitals: Vital Signs Temp Pulse Pulse Resp BP BP Pulse Ox 04/07/22 16:27 98.3 F 63 14 163/68 97 04/07/22 15:27 98.7 F 66 18 165/86 99 04/07/22 12:14 97.7 F 56 L 15 193/87 98 Intake and Output 04/07/22 04/07/22 04/07/22 06:59 14:59 22:59 Intake Total 480 Balance 480 Intake: Oral 480 Other: Weight 48.988 kg 48.988 kg Results CBC & Chem 7: 04/07/22 12:47 04/07/22 12:47 Labs: Abnormal Lab Results - Last 24 Hours (Table) 04/07/22 04/07/22 Range/Units 12:47 12:47 Lymphocytes # 0.6 L (1.0-4.8) k/uL Potassium 3.3 L (3.5-5.1) mmol/L BUN 18 H (7-17) mg/dL Creatinine 1.07 H (0.52-1.04) mg/dL Glucose 131 H (74-99) mg/dL Thrombosis Risk Factor Assmnt - Choose All That Apply Any of the Below Risk Factors Present?: No Other Risk Factors: Yes Each Risk Factor Represents 2 Points: Age 61-74 years Thrombosis Risk Factor Assessment Total Risk Factor Score: 2 Thrombosis Risk Factor Assessment Level: Low Risk
[2022-04-07 19:02] LABS: C Reactive Protein <0.5 mg/dL (<1.0); Lipase 90 U/L (23-300)
[2022-04-07] MEDS: ZONISAMIDE 25 MG CAP PO SCH (20:55)
[2022-04-07] MEDS: lisinopriL 20 MG TAB PO SCH (20:56)
[2022-04-07] MEDS: ATORVASTATIN 80 MG TAB PO SCH (20:56)
[2022-04-07] MEDS: MECLIZINE 25 MG TAB PO PRN (20:56)
[2022-04-07] MEDS: OXcarbazepine 300 MG TAB PO SCH ×2 (20:56→20:59)
[2022-04-07] MEDS: ISOSORBIDE MONONITRATE ER 60 MG TAB.ER.24H PO SCH (20:57)
[2022-04-07] MEDS: CLOPIDOGREL 75 MG TAB PO SCH (20:57)
[2022-04-07] MEDS ORDERED: ZONISAMIDE 100 MG CAP PO SCH (21:00)
[2022-04-07] MEDS ORDERED: ZONISAMIDE 25 MG CAP PO SCH (21:00)
[2022-04-08] MEDS: OXcarbazepine 300 MG TAB PO SCH ×3 (08:33→20:56)
[2022-04-08] MEDS: ENOXAPARIN 40 MG/0.4 ML SYRINGE SQ SCH (08:34)
[2022-04-08] MEDS: SERTRALINE 100 MG TAB PO SCH (08:34)
[2022-04-08] MEDS: ISOSORBIDE MONONITRATE ER 60 MG TAB.ER.24H PO SCH ×2 (08:34→20:57)
[2022-04-08] MEDS: ASPIRIN 81 MG PO SCH (08:34)
[2022-04-08] MEDS: LEVOTHYROXINE 88 MCG TAB PO SCH (08:34)
[2022-04-08] MEDS: CLOPIDOGREL 75 MG TAB PO SCH (08:34)
[2022-04-08] MEDS: lisinopriL 20 MG TAB PO SCH ×2 (08:34→20:56)
[2022-04-08] MEDS: FOLIC ACID 1 MG TAB PO SCH (08:34)
[2022-04-08] MEDS: amLODIPine 5 MG TAB PO SCH (08:35)
[2022-04-08] MEDS: ZONISAMIDE 25 MG CAP PO SCH (08:35)
[2022-04-08] MEDS: CHOLECALCIFEROL 125 MCG (5000 IU) TABLET PO SCH (08:35)
[2022-04-08] MEDS: NICOTINE 14MG/24HR PATCH TRANSDERM SCH (08:36)
--- NOTE | 2022-04-08 10:12 | P.PN ---
Subjective Progress Note Date: 04/08/22 History of present illness: 66-year-old female with past medical history significant for seizure disorder, CVA status post stent in 2006. History of brain aneurysm status post coiling in 2008. Patient presented to the emergency room with a chief complaint of intractable nausea vomiting associated with the patient and falls 2 days leading to small laceration to the left eyelid. Patient denies any loss of consciousness. Patient denies any focal neurological weakness but she stated that she is out of balance and ataxic. Workup in emergency room including Negative CT angiogram of the brain, negative CT angiogram of the neck minimal plaque at the carotid artery bifurcation. CT of the brain without contrast unremarkable. Patient denied any seizure activity patient denies any fever or chills. Patient denies any abdominal pain. Patient denied any shortness of breath or cough. Patient is a smoker continue to smoke she smoked for 45-50 years she stated that a pack of SIRS will last for 3 days. Patient denies any history of alcohol abuse. Patient stated that she lost 45 pounds over the past year. Interval history: Patient was seen and examined at the bedside. She denies any chest pain shortness of breath. She still complaining of weakness and ataxia. She is scheduled for MRI tomorrow. Otherwise no acute reported changes overnight Physical examination: General: non toxic, no distress, appears older than stated age. Derm: warm, dry Head: atraumatic, normocephalic, symmetric Eyes: EOMI, no lid lag, anicteric sclera Mouth: no lip lesion, mucus membranes moist Cardiovascular: S1S2 reg, no murmur, positive posterior tibial pulse bilateral, Lungs: CTA bilateral, no rhonchi, no rales , no accessory muscle use Abdominal: soft, nontender to palpation, no guarding, no appreciable organomegaly Ext: no gross muscle atrophy, no edema, no contractures Neuro: CN II-XI grossly intact, no focal neuro deficits Psych: Alert, oriented, appropriate affect Assessment and plan: #Double vision with ataxia and nausea vomiting status post fall -Patient had a stroke in 2006 status post stent -Suspicious for brain stem or cerebellar acute CVA -MRI per neurology -Resume aspirin, Plavix and high-dose statins -Check LDL A1c and 2-D echo #History of seizure disorder -Resume home medications -Seizure precaution and when necessary Ativan #History of brain aneurysm status post coiling 2008 #Acute dehydration -secondary to nausea and vomiting -IV fluids when necessary antiemetics #Unexplained weight loss -CT chest abdomen and pelvis to rule out malignancy #Hypothyroidism -Resume levothyroxine -Normal TSH #Essential hypertension -Controlled -Resume all medications #Ongoing tobacco abuse -Patient was counseled regarding smoking cessation -Nicotine patch #DVT prophylaxis with Lovenox #Full code Objective - Vital Signs Vital signs: Vital Signs Temp 98.0 F 04/08/22 07:00 Pulse 61 04/08/22 07:00 Resp 18 04/08/22 08:00 BP 154/74 04/08/22 07:00 Pulse Ox 98 04/08/22 07:00 FiO2 Intake & Output 04/07/22 04/08/22 04/08/22 18:59 06:59 18:59 Intake Total 480 118 Output Total 0 Balance 480 0 118 Weight 48.988 kg Intake: Oral 480 118 Output: Emesis 0 Other: # Voids 1 - Labs CBC & Chem 7: 04/07/22 12:47 04/07/22 12:47 Labs: Abnormal Lab Results - Last 24 Hours (Table) 04/07/22 04/07/22 Range/Units 12:47 12:47 Lymphocytes # 0.6 L (1.0-4.8) k/uL Potassium 3.3 L (3.5-5.1) mmol/L BUN 18 H (7-17) mg/dL Creatinine 1.07 H (0.52-1.04) mg/dL Glucose 131 H (74-99) mg/dL
[2022-04-08 10:24] LABS: Basophils # (A) 0.04 X 10*3/uL (0.00-0.10); Basophils % (A) 0.9 %; Eosinophils % (A) 2.2 %; HCT 33.5 % (37.2-46.3); HGB 11.1 g/dL (12.0-15.0); Immature Grans, Automated 0.2 %; Lymphocytes # (A) 1.04 X 10*3/uL (0.90-5.00); Lymphocytes % (A) 23.1 %; MCH 30.9 pg (27.0-32.0); MCHC 33.1 g/dL (32.0-37.0); MCV 93.3 fL (80.0-97.0); Mean Platelet Volume 9.4 fL (9.5-12.2); Monocytes # (A) 0.39 X 10*3/uL (0.20-1.00); Monocytes % (A) 8.7 %; NRBC Per 100 WBC 0 /100 WBCS (0.0-0.0); Neutrophils # (A) 2.92 X 10*3/uL (1.80-7.70); Neutrophils % (A) 64.9 %; Platelet Count 200 X 10*3/uL (140-440); RBC 3.59 X 10*6/uL (4.10-5.20); RDW 13.5 % (11.5-14.5)
[2022-04-08] MEDS: LORazepam 2 MG/ML INJ IV PRN (10:37)
[2022-04-08] MEDS: ONDANSETRON 4 MG/2 ML VIAL IVP PRN ×2 (10:42→21:04)
[2022-04-08 11:02] LABS: ALT 12 U/L (8-44); AST 16 U/L (13-35); African American GFR (CKD) 68.9 (60.0-200.0); Albumin 3.7 g/dL (3.8-4.9); Albumin/Globulin Ratio 2.06 (1.60-3.17); Alkaline Phosphatase 67 U/L (41-126); Blood Urea Nitrogen 13.5 mg/dL (9.0-27.0); Calcium 8.7 mg/dL (8.7-10.3); Carbon Dioxide 24.2 mmol/L (20.0-27.5); Chloride 107 mmol/L (96-109); Chol/HDL Ratio 4.38 Ratio; Globulin 1.8 g/dL (1.6-3.3); Glucose 89 mg/dL (70-110); LDL Cholesterol,Calculated 141.1 mg/dL (0.0-131.0); Lipase 37 U/L (14-63); Magnesium 1.9 mg/dL (1.5-2.4); Non-African American GFR(CKD) 59.5 (60.0-200.0); Potassium 3.2 mmol/L (3.5-5.5); Sodium 141 mmol/L (135-145); Total Bilirubin <0.15 mg/dL (0.30-1.20); Total Protein 5.5 g/dL (6.2-8.2)
--- NOTE | 2022-04-08 11:05 | P.CNNES ---
History of Present Illness Consult date: 04/07/22 Requesting physician: Jaime De La Rosa Reason for Consult: vertigo, off balance History of Present Illness: Patient is a 66-year-old right-handed female, who has history of cerebral aneurysm coiling, came to the hospital today at 12:08 PM for evaluation of recurrent episodes of diplopia, imbalance, equilibrium off. Patient states that she had these episodes 3 days in a row, on Saturday, and Saturday and this morning on Saturday. Patient states that these episodes were occurring at nighttime, started with diplopia and then she gets very imbalance, her equilibrium is off, cannot walk straight. She would go to bed, sleep and neck small ring the symptoms are gone. These spells happened 3 days in a row, but to day on Saturday, it happened in the morning, therefore she got concerned and came to the hospital. Today the diplopia lasted for about 5-6 hours, and she vomited, also has imbalance. Each episode lasts for 4-5 hours. She denies any slurred speech, droopy face, feels generalized weak but no focal weakness. Patient says that she had history of spells of imbalance in the past, but over much shorter in duration, not associated with diplopia, lasting for only a few minutes. Vital signs on arrival blood pressure 193/87, pulse rate 56 temperature 97.7. Patient's blood test shows normal CBC, PT/PTT, sodium 139 potassium 3.3, BUN 18, creatinine 1.07. Hepatic panel normal, B12 514, TSH 3.4. C-reactive protein <0.5. Chest x-ray showed no acute cardiopulmonary process. CT head showed previous surgery, with evidence of dense metal artifact at the anterior [place] of [place], consistent with aneurysm surgery. No acute intracranial abnormality. No change compared to old exam. I personally reviewed CAT scan of the head, agree with the findings. There is significant amount of cerebral atrophy. Patient states she suffered from a stroke in 2006, which affected right side of the body. It affected her speech, arm and leg. Everything came back except her right hand is slightly spastic. In 2007 she had an NM. In 2008 she was diagnosed with cerebral aneurysm, after one of the aneurysm ruptured. She underwent endovascular coiling and stent placement by Dr. Kay. Patient has history of seizure disorder, in which she shakes real bad, and starts sweating. Patient's makes her laid down and her eyes would "bulge out". There is no tongue bite. She has had urine incontinence with her seizure a few times in the past. Patient states the seizures started sometimes between [id number]. She is to have it once a year but the seizures have been getting more frequent lately. Last year she had 3-4 seizures. This year she already had 3 seizures so far. The last one was 5 weeks ago. Patient currently follows up with Dr. Fall from [facility]. Patient denies diabetes. She does have hypertension. Patient has smoked 1 pack per day for 30 years, whereas in the last 10-15 years, she has been smoking only 6 cigarettes per day (still smokes this amount). (Smoked total for 40-45 years). Denies any alcohol use. Review of Systems All 14 points of review of systems reviewed, unremarkable, or unrelated to the present illness, except as mentioned in HPI. Past Medical History Past Medical History: Chest Pain / Angina, CVA/TIA, Hyperlipidemia, Hypertension, Myocardial Infarction ([place]), Seizure Disorder, Thyroid Disorder Additional Past Medical History / Comment(s): brain coils, ITP Last Myocardial Infarction Date:: 2007 History of Any Multi-Drug Resistant Organisms: None Reported Past Surgical History: Heart Catheterization With Stent, Hysterectomy Past Anesthesia/Blood Transfusion Reactions: No Reported Reaction Date of Last Stent Placement:: 2007 Past Psychological History: No Psychological Hx Reported Smoking Status: Current every day smoker Past Alcohol Use History: None Reported Past Drug Use History: Marijuana Medications and Allergies Home Medications Medication Instructions Recorded Confirmed Type Aspirin EC [Ecotrin Low Dose] 81 mg PO DAILY 06/14/21 04/07/22 History Cholecalciferol (Vitamin D3) 125 mcg PO DAILY 06/14/21 04/07/22 History [Vitamin D3 (125 MCG = 5,000 IU)] Folic Acid 1 mg PO DAILY 06/14/21 04/07/22 History Isosorbide Mononitrate ER [Imdur] 60 mg PO BID 06/14/21 04/07/22 History Levothyroxine Sodium [Synthroid] 88 mcg PO DAILY 06/14/21 04/07/22 History Ramipril 10 mg PO BID 06/14/21 04/07/22 History Rosuvastatin Calcium [Crestor] 40 mg PO Q48H 06/14/21 04/07/22 History Sertraline [Zoloft] 100 mg PO DAILY 06/14/21 04/07/22 History Carvedilol [Coreg] 3.125 mg PO BID 04/07/22 04/07/22 History Melatonin 10mg Gummy 30 mg PO HS 04/07/22 04/07/22 History OXcarbazepine [Trileptal] 600 mg PO BID 04/07/22 04/07/22 History Zonisamide 100 mg PO HS 04/07/22 04/07/22 History Zonisamide [Zonegran] 50 mg PO HS 04/07/22 04/07/22 History amLODIPine [Norvasc] 5 mg PO DAILY 04/07/22 04/07/22 History Allergies Allergy/AdvReac Type Severity Reaction Status Date / Time No Known Allergies Allergy Verified 04/07/22 15:48 Physical Examination - Vital Signs Vital Signs: Vital Signs Temp Pulse Pulse Resp BP BP Pulse Ox 04/07/22 16:27 98.3 F 63 14 163/68 97 04/07/22 15:27 98.7 F 66 18 165/86 99 04/07/22 12:14 97.7 F 56 L 15 193/87 98 Intake and Output 04/07/22 04/07/22 04/07/22 06:59 14:59 22:59 Other: Weight 48.988 kg 48.988 kg Patient is an elderly female, in no acute distress. Patient is alert awake oriented to time place and person. Speech and language functions are normal. Attention, concentration and fund of knowledge is adequate. On cranial examination, pupils are equal, round and reacting to light, visual mi are full on confrontation, extraocular muscles are intact with slight nystagmus noted with the right gaze only. Face is symmetric, tongue protrudes to the midline. Palatal elevation and sensation normal, hearing and shoulder shrug normal, facial sensation normal. Shoulder shrug normal. On muscle strength testing, there is no pronator drift and the strength is normal in arms and legs distally and proximally, except right interossei, which is 5-whereas normal on the left. Crutch Maker is equal bilaterally. Deep tendon reflexes are (right/left) biceps 2/2, brachioradialis 2/2, knee 2+/2, ankles 1+/1, plantar is up on the right, down on the left. Sensory to touch is equal with no neglect. Cerebellar function showed ataxia for [id number] testing only on the right side, not in the left arm. Tone and bulk of muscles normal. Gait deferred. On general examination, there is no carotid bruit or murmur, S1-S2 audible. Abdomen is soft nontender. No organomegaly, bowel sounds present Chest is clear. Peripheral pulses are present. No edema. Results - Laboratory Findings CBC and BMP: 04/08/22 06:42 04/07/22 12:47 Abnormal Lab Findings: Abnormal Labs 04/07/22 04/07/22 12:47 12:47 Lymphocytes # 0.6 L Potassium 3.3 L BUN 18 H Creatinine 1.07 H Glucose 131 H Assessment and Plan Assessment: * Recurrent episodes (x4) of diplopia, associated with loss of balance, nausea, occasional vomiting, each lasting for 4-5 hours. Examination is significant for some ataxia in the right upper limb, and nystagmus on the right. Rule out stroke TIA. * History of stroke affected right side, with minimal deficit in the right hand. * History of cerebral aneurysm in 2008, status post endovascular coiling and stenting. * Coronary artery disease * Hypertension * Tobacco use * Seizure disorder Plan: * MRI brain evaluate for an acute stroke * CTA of head and neck revealed no significant stenosis reported. * 2-D echo to rule out embolic source * Hemoglobin A1c, lipid panel * B12, folate. TSH is normal 3.4 * Patient has been on aspirin 81 mg daily. We will also start Plavix 75 mg daily for now. Long-term antiplatelet medication based upon MRI results. * Patient also has been having increased frequency of seizures. Patient is currently on oxcarbazepine 600 mg twice a day and zonisamide 100 mg daily. We will increase zonisamide from 100 to 150 mg daily. (Her home medication list mentions about dose of Zonegran 150 mg, but patient is very clear, that she is only taking Zonegran 100 mg daily). Patient needs to follow-up with her neurologist for continued management of her seizure disorder as well. * Telemetry monitoring rule out arrhythmia. * Recommend complete tobacco cessation. * Neurology will follow. Thank you for the consult. Time with Patient: Greater than 30
--- NOTE | 2022-04-08 15:17 | CT ---
EXAMINATION TYPE: CT ChestAbdPelvis w con DATE OF EXAM: 04/08/2022 COMPARISON: 12/28/2021 and 06/14/2021 HISTORY: Weight Loss CT DLP: 912 mGycm Automated exposure control for dose reduction was used. CONTRAST: Performed with IV Contrast, patient injected with 100 mL of Isovue 300. The lungs are clear of consolidation. There is minimal subsegmental atelectasis at the lung bases. He art size is normal. No pericardial effusion. No mediastinal adenopathy. There are no hilar masses. As cending aorta measures 3.2 cm. No aneurysm or dissection. Liver spleen and stomach pancreas appear intact. The bile ducts are not dilated. There is no adrenal mass. Kidneys have normal size and contour. No hydronephrosis. Ureters are not di lated. There is no retroperitoneal adenopathy. Delayed images show normal renal excretion. The bladde r distends smoothly. There is hysterectomy. No inguinal hernia. No pelvic mass. No free fluid in the pelvis. Appendix not seen. No significant appendix. There is no mesenteric edema. No ascites or free air. No evidence of a bowel obstruction. Abdominal a elinor shows moderate atheromatous changes. The thoracic and lumbar spine are intact with no compressio n fracture. Sternum is intact. The bony pelvis is intact. Hip joints appear normal. IMPRESSION: Mild subsegmental atelectasis at the lung bases. No suspicious pulmonary mass. No significant abnormality in the abdomen and pelvis. There is atherosclerotic vascular disease.
[2022-04-08] MEDS: MECLIZINE 25 MG TAB PO PRN (18:13)
[2022-04-09] MEDS: ONDANSETRON 4 MG/2 ML VIAL IVP PRN (06:33)
[2022-04-09] MEDS: lisinopriL 20 MG TAB PO SCH ×2 (09:03→21:05)
[2022-04-09] MEDS: MECLIZINE 25 MG TAB PO PRN (09:03)
[2022-04-09] MEDS: LEVOTHYROXINE 88 MCG TAB PO SCH (09:03)
[2022-04-09] MEDS: SERTRALINE 100 MG TAB PO SCH (09:03)
[2022-04-09] MEDS: CHOLECALCIFEROL 125 MCG (5000 IU) TABLET PO SCH (09:04)
[2022-04-09] MEDS: ISOSORBIDE MONONITRATE ER 60 MG TAB.ER.24H PO SCH ×2 (09:04→21:06)
[2022-04-09] MEDS: OXcarbazepine 300 MG TAB PO SCH ×2 (09:04→21:06)
[2022-04-09] MEDS: amLODIPine 5 MG TAB PO SCH (09:04)
[2022-04-09] MEDS: FOLIC ACID 1 MG TAB PO SCH (09:04)
[2022-04-09] MEDS: ASPIRIN 81 MG PO SCH (09:04)
[2022-04-09] MEDS: CLOPIDOGREL 75 MG TAB PO SCH (09:04)
[2022-04-09] MEDS: ZONISAMIDE 25 MG CAP PO SCH (09:05)
[2022-04-09] MEDS: ENOXAPARIN 40 MG/0.4 ML SYRINGE SQ SCH (09:06)
[2022-04-09] MEDS: NICOTINE 14MG/24HR PATCH TRANSDERM SCH (09:06)
--- NOTE | 2022-04-09 09:29 | P.PN ---
Subjective Progress Note Date: 04/08/22 Patient was seen for a follow-up. Patient is laying comfortably in the bed. Offers no complaints. Denies any headache. No diplopia. She does get nauseous. Her stomach is agitated. Denies any slurred speech, facial droop. Per nursing report, at 11 AM patient started having head tremor, which was like "yes yes" fashion. She felt very nauseous, vomited afterwards. Patient states that she has been having these spells at least once a day, sometimes several times a day, off and on for last 9 months. These episodes last for few minutes to 1 hour. She mentions that her gait disturbance has been going on for weeks in which she would almost fall. However the nausea vomiting started 1 week ago. Objective - Vital Signs Vital signs: Vital Signs Temp 98 F 04/08/22 14:09 Pulse 56 L 04/08/22 14:09 Resp 16 04/08/22 14:09 BP 158/67 04/08/22 14:09 Pulse Ox 97 04/08/22 14:09 FiO2 Intake & Output 04/07/22 04/08/22 04/08/22 18:59 06:59 18:59 Intake Total 480 208 Output Total 0 Balance 480 0 208 Weight 48.988 kg Intake: Oral 480 208 Output: Emesis 0 Other: # Voids 1 - Exam Patient's mental status, speech and language functions are normal. Cranial nerves are normal. No diplopia, slight nystagmus looking to the right. Muscle strength is normal. No pronator drift. No ataxia for [id number] testing. Sensations normal. - Labs CBC & Chem 7: 04/08/22 06:42 04/08/22 06:42 Labs: Abnormal Lab Results - Last 24 Hours (Table) 04/08/22 04/08/22 Range/Units 06:42 06:42 RBC 3.59 L (4.10-5.20) X 10*6/uL Hgb 11.1 L (12.0-15.0) g/dL Hct 33.5 L (37.2-46.3) % MPV 9.4 L (9.5-12.2) fL Potassium 3.2 L (3.5-5.5) mmol/L Anion Gap 9.80 L (10.00-18.00) mmol/L Est GFR (CKD-EPI)NonAf 59.5 L (60.0-200.0) Total Bilirubin <0.15 L (0.30-1.20) mg/dL Total Protein 5.5 L (6.2-8.2) g/dL Albumin 3.7 L (3.8-4.9) g/dL Cholesterol 217.00 H (0.00-200.00) mg/dL LDL Cholesterol, Calc 141.1 H (0.0-131.0) mg/dL Assessment and Plan Assessment: * Recurrent episodes (x4) of diplopia, associated with loss of balance, nausea, occasional vomiting, each lasting for 4-5 hours. Examination is significant for some ataxia in the right upper limb, and nystagmus on the right. Rule out stroke TIA. * History of stroke affected right side, with minimal deficit in the right hand. * History of cerebral aneurysm in 2008, status post endovascular coiling and stenting. * Coronary artery disease * Hypertension * Tobacco use * Seizure disorder Plan: * MRI brain evaluate for an acute stroke * CTA of head and neck revealed no significant stenosis reported. I reviewed CTA of head and neck with Dr. Pierce for a second opinion. He agreed that there is no recurrence of aneurysm. Left A1 segment of left VALORIE is occluded, probably chronic. Computed tomography scan does show evidence of an extra- axial right frontal lesion 1.1 cm, that erodes the inner table of the calvarium. It probably is meningioma. MRI recommended. * 2-D echo to rule out embolic source, pending * Hemoglobin A1c 5.5, lipid panel cholesterol 217, LDL 141, HDL 49.5 and triglycerides 132. Continue Lipitor 80 mg daily. * B12 514, folate >20.0. TSH is normal 3.4 * Patient has been on aspirin 81 mg daily. We will also start Plavix 75 mg daily for now. Long-term antiplatelet medication based upon MRI results. * Patient also has been having increased frequency of seizures. Patient is currently on oxcarbazepine 600 mg twice a day and zonisamide 100 mg daily. We will increase zonisamide from 100 to 150 mg daily. (Her home medication list mentions about dose of Zonegran 150 mg, but patient is very clear, that she is only taking Zonegran 100 mg daily). Patient needs to follow-up with her neurologist for continued management of her seizure disorder as well. * Patient has been having almost daily episodes of head jerking with nausea. Doubt these spells as epileptic. However we will check EEG. * Start telemetry monitoring rule out arrhythmia. Patient may need 21 day event monitoring after discharge. * Recommend complete tobacco cessation. * Dr. Akhil Sauceda Will resume neurology service in the morning.
[2022-04-09] MEDS: LORazepam 2 MG/ML INJ IV PRN (09:57)
[2022-04-09 10:58] LABS: Basophils # (A) 0.06 X 10*3/uL (0.00-0.10); Basophils % (A) 1.1 %; Eosinophils # (A) 0.11 X 10*3/uL (0.04-0.35); HCT 35.2 % (37.2-46.3); HGB 11.4 g/dL (12.0-15.0); Immature Grans, Automated 0.2 %; Lymphocytes # (A) 1.09 X 10*3/uL (0.90-5.00); Lymphocytes % (A) 19.6 %; MCH 30.7 pg (27.0-32.0); MCHC 32.4 g/dL (32.0-37.0); MCV 94.9 fL (80.0-97.0); Mean Platelet Volume 9.5 fL (9.5-12.2); Monocytes # (A) 0.44 X 10*3/uL (0.20-1.00); Monocytes % (A) 7.9 %; NRBC Per 100 WBC 0 /100 WBCS (0.0-0.0); Neutrophils # (A) 3.85 X 10*3/uL (1.80-7.70); Neutrophils % (A) 69.2 %; Platelet Count 215 X 10*3/uL (140-440); RBC 3.71 X 10*6/uL (4.10-5.20); RDW 13.6 % (11.5-14.5); WBC 5.56 X 10*3/uL (4.50-10.00)
--- NOTE | 2022-04-09 10:58 | CA ---
Transthoracic Echo Report Name: Erma Dickerson Age: 66 Gender: F : 1955 Exam Date: 04/09/2022 07:32 Exam Location: [facility] Ht (in): 60 Wt (lb): 108 Ordering Physician: Kari Mireles MD Attending/Referring Phys: [id number] Mat Gauger Concha Quezada RDCS Procedure CPT: Indications: acute CVA Cardiac Hx: Technical Quality: Fair Contrast 1: Lumason Total Dose (mL): 2 Contrast 2: Total Dose (mL): MEASUREMENTS (Male / Female) Normal Values 2D ECHO LV Diastolic Diameter PLAX 4.3 cm 4.2 - 5.9 / 3.9 - 5.3 cm LV Systolic Diameter PLAX 3.0 cm IVS Diastolic Thickness 1.4 cm 0.6 - 1.0 / 0.6 - 0.9 cm LVPW Diastolic Thickness 1.6 cm 0.6 - 1.0 / 0.6 - 0.9 cm LV Relative Wall Thickness 0.7 RV Internal Dim ED PLAX 2.7 cm LA Volume 56.6 cm??? 18 - 58 / 22 - 52 cm??? M-MODE Aortic Root Diameter MM 2.7 cm LA Systolic Diameter MM 1.6 cm LA Ao Ratio MM 0.6 DOPPLER AV Peak Velocity 241.9 cm/s AV Peak Gradient 23.4 mmHg AV Mean Velocity 150.4 cm/s AV Mean Gradient 10.7 mmHg AV Velocity Time Integral 45.5 cm AI Peak Velocity 607.9 cm/s AI Peak Gradient 147.8 mmHg AI Pressure Half Time 623.5 ms LVOT Peak Velocity 132.9 cm/s LVOT Peak Gradient 7.1 mmHg MV Area PHT 2.9 cm??? Mitral E Point Velocity 43.2 cm/s Mitral A Point Velocity 70.0 cm/s Mitral E to A Ratio 0.6 MV Deceleration Time 261.0 ms MV E' Velocity 3.6 cm/s Mitral E to MV E' Ratio 11.9 TR Peak Velocity 231.7 cm/s TR Peak Gradient 21.5 mmHg Right Ventricular Systolic Press 24.8 mmHg FINDINGS Left Ventricle Moderately increased left ventricular wall thickness. Apical left ventricular aneurysm. Left ventricular ejection fraction is estimated at 40-45 %. Abnormal left ventricular diastolic filling pattern. Right Ventricle Normal right ventricular size and function. Right ventricular systolic pressure within normal limits. Right Atrium Normal right atrial size. Left Atrium Mildly increased left atrial volume. No evidence for an atrial septal defect. Mitral Valve Mitral valve thickened. Mitral annular calcification. [id number] mitral regurgitation. Aortic Valve Mild aortic stenosis with a peak gradient of 23 mmHg and a mean gradient of 11 mmHg. Zwxh-oe-ticghfwu aortic regurgitation. Tricuspid Valve Structurally normal tricuspid valve. Mild tricuspid regurgitation. Pulmonic Valve Structurally normal pulmonic valve. Pericardium No pericardial effusion. Aorta Normal size aortic root and proximal ascending aorta. CONCLUSIONS #1. Normal left ventricular size with apical aneurysm and an ejection fraction about 40-45%. #2. Mild to moderate mitral regurgitation #3. Mild to moderate aortic stenosis with mild to moderate aortic regurgitation Previewed by: Dr. Taras Miller MD (Electronically Signed) Final Date: 09 April 2022 10:56
[2022-04-09 11:20] LABS: African American GFR (CKD) 68.9 (60.0-200.0); Anion Gap 8.6 mmol/L (10.00-18.00); BUN/Creat Ratio 11.1 Ratio (12.00-20.00); Blood Urea Nitrogen 11.1 mg/dL (9.0-27.0); Calcium 8.8 mg/dL (8.7-10.3); Carbon Dioxide 25.4 mmol/L (20.0-27.5); Non-African American GFR(CKD) 59.5 (60.0-200.0); Potassium 3.6 mmol/L (3.5-5.5)
[2022-04-09] MEDS ORDERED: POTASSIUM CHLORIDE ER 20 MEQ TAB.ER PO STA (11:25)
--- NOTE | 2022-04-09 12:44 | P.PN ---
Subjective Progress Note Date: 04/09/22 History of present illness: 66-year-old female with past medical history significant for seizure disorder, CVA status post stent in 2006. History of brain aneurysm status post coiling in 2008. Patient presented to the emergency room with a chief complaint of intractable nausea vomiting associated with the patient and falls 2 days leading to small laceration to the left eyelid. Patient denies any loss of consciousness. Patient denies any focal neurological weakness but she stated that she is out of balance and ataxic. Workup in emergency room including Negative CT angiogram of the brain, negative CT angiogram of the neck minimal plaque at the carotid artery bifurcation. CT of the brain without contrast unremarkable. Patient denied any seizure activity patient denies any fever or chills. Patient denies any abdominal pain. Patient denied any shortness of breath or cough. Patient is a smoker continue to smoke she smoked for 45-50 years she stated that a pack of SIRS will last for 3 days. Patient denies any history of alcohol abuse. Patient stated that she lost 45 pounds over the past year. Interval history: Patient was seen and examined at the bedside. She denies any chest pain shortness of breath. She still complaining of double vision and ataxia. At any stated that in the yesterday in afternoon the patient was having a tremor. RN today stated that the patient was having seizure-like activity and she was awake at the time time and she was crying patient received IV Ativan. EEG was done and came back negative. Neurologist ordered MRI of the brain without without contrast pending the report from previous brain aneurysmal coiling Physical examination: General: non toxic, no distress, appears older than stated age. Derm: warm, dry Head: atraumatic, normocephalic, symmetric Eyes: EOMI, no lid lag, anicteric sclera Mouth: no lip lesion, mucus membranes moist Cardiovascular: S1S2 reg, no murmur, positive posterior tibial pulse bilateral, Lungs: CTA bilateral, no rhonchi, no rales , no accessory muscle use Abdominal: soft, nontender to palpation, no guarding, no appreciable organom egaly Ext: no gross muscle atrophy, no edema, no contractures Neuro: CN II-XI grossly intact, no focal neuro deficits Psych: Alert, oriented, appropriate affect Assessment and plan: #Double vision with ataxia and nausea vomiting status post fall -Symptoms suspicious for recurrent stroke -Patient had a stroke in 2006 status post stent -Suspicious for brain stem or cerebellar acute CVA -MRI per neurology -Resume aspirin, Plavix and high-dose statins -LDL uncontrolled 141 -A1c 5.5 -2-D echo showed low EF 40-45% with apical aneurysm. Mild to moderate mitral regurg. Mild to moderate aortic stenosis. -Cardiology consulted -Telemetry #History of seizure disorder -She her like activity 04/09 suspicious for possible pseudoseizure -Resume home medications -Seizure precaution and when necessary Ativan #History of brain aneurysm status post coiling 2008 #Acute dehydration -secondary to nausea and vomiting -IV fluids when necessary antiemetics #Unexplained weight loss -Unremarkable CT chest abdomen and pelvis. #Hypothyroidism -Resume levothyroxine -Normal TSH #Essential hypertension -Controlled -Resume all medications #Ongoing tobacco abuse -Patient was counseled regarding smoking cessation -Nicotine patch #DVT prophylaxis with Lovenox #Full code Objective - Vital Signs Vital signs: Vital Signs Temp 98.1 F 04/09/22 07:00 Pulse 58 L 04/09/22 07:00 Resp 16 04/09/22 07:00 BP 160/67 04/09/22 07:00 Pulse Ox 96 04/09/22 07:00 FiO2 Intake & Output 04/08/22 04/09/22 04/09/22 18:59 06:59 18:59 Intake Total 418 750 90 Balance 418 750 90 Intake: Oral 418 750 90 Other: # Voids 1 0 - Labs CBC & Chem 7: 04/09/22 06:55 04/09/22 06:55 Labs: Abnormal Lab Results - Last 24 Hours (Table) 04/09/22 04/09/22 Range/Units 06:55 06:55 RBC 3.71 L (4.10-5.20) X 10*6/uL Hgb 11.4 L (12.0-15.0) g/dL Hct 35.2 L (37.2-46.3) % Anion Gap 8.60 L (10.00-18.00) mmol/L Est GFR (CKD-EPI)NonAf 59.5 L (60.0-200.0) BUN/Creatinine Ratio 11.10 L (12.00-20.00) Ratio
--- NOTE | 2022-04-09 12:58 | P.CRDCN ---
History of Present Illness Consult date: 04/09/22 History of present illness: HISTORY OF PRESENT ILLNESS: This is a 66-year-old female with a past medical history significant for ischemic CVA, cerebral aneurysm with coiling and stenting, nicotine dependence, aortic insufficiency, hypertension, and coronary artery disease with previous stenting in 2007. Patient follows in the office with Dr. Jarvis. We have been asked to see the patient in consultation for abnormal echo. The patient is admit martita to the hospital secondary to multiple episodes of diplopia, loss of balance, and nausea. Neurology is following. She denies any chest pain or pressure at the time of examination. Denies SOB. She reports having a seizure this morning. -Echocardiogram performed revealing ejection fraction 40-45% with apical aneurysm, hvqc-la-upwtuyau mitral regurgitation, akeb-al-bbixubir aortic stenosis with ipsy-wg-[id number] aortic regurgitation. -Previous echocardiogram performed in the office in June 2021 revealing ejection fraction 55%, moderate LVH, small apical aneurysm, moderate aortic regurgitation, mild mitral regurgitation, and moderate tricuspid regurgitation. * EKG reveals sinus bradycardia with no signs of acute ischemia * Chest xray negative for acute process * Laboratory data: WBC 5.56. Hemoglobin 11.4. Platelet count 215. Sodium 141. Potassium 3.6. BUN 11. Creatinine 1.0. * Current home cardiac medications include aspirin 81 mg daily, Imdur 60 mg twice a day, amlodipine 5 mg daily, Ramipril 10 mg twice a day, Crestor 40 mg every 48 hours, and carvedilol 3.125 mg twice a day * Patient underwent Daniela scan in May 2021 which was negative for acute ischemia. It did reveal a small fixed defect at the apex suggestive of possible previous SD. * Cardiac catheterization history: Unavailable at this time REVIEW OF SYSTEMS: At the time of my exam: CONSTITUTIONAL: Denies fever or chills. HEENT: Denies blurred vision, vision changes, or eye pain. Denies hemoptysis CARDIOVASCULAR: Denies chest pain. Denies orthopnea. Denies PND. Denies palpitations RESPIRATORY: Denies shortness of breath. GASTROINTESTINAL: Denies abdominal pain. Denies nausea or vomiting. HEMATOLOGIC: Denies bleeding disorders. GENITOURINARY: Denies any blood in urine. SKIN: Denies pruitis. Denies rash. PHYSICAL EXAM: VITAL SIGNS: Reviewed. GENERAL: Well-developed in no acute distress. HEENT: Head is normocephalic. Pupils are equal, round. Sclerae anicteric. Mucous membranes of the mouth are moist. Neck supple. No JVD or thyromegaly LUNGS: Respirations even and unlabored. Lungs essentially clear to auscultation bilaterally. HEART: Regular rate and rhythm. S1 and S2 heard. ABDOMEN: Soft. Nondistended. Nontender. EXTREMITIES: Normal range of motion. No clubbing or cyanosis. Peripheral pulses intact. No lower extremity edema NEUROLOGIC: Awake and alert. Oriented x 3. ASSESSMENT: Multiple episodes of diplopia, loss of balance, and nausea Coronary artery disease with previous stenting History of CVA History of cerebral aneurysm with coiling and stenting Known valvular heart disease Known small apical aneurysm noted on echocardiogram Seizure disorder PLAN: 2D echo reviewed. Patient with known apical aneurysm and valvular heart disease. EF slightly decreased, however no wall motion abnormalities are noted. Continue workup per neurology Patients symptoms do not appear to be cardiac in etiology Continue home cardiac medications Patient may follow up on an outpatient basis. Nurse practitioner note has been reviewed by physician. Signing provider agrees with the documented findings, assessment, and plan of care. Past Medical History Past Medical History: Chest Pain / Angina, CVA/TIA, Hyperlipidemia, Hypertension , Myocardial Infarction (SD), Seizure Disorder, Thyroid Disorder Additional Past Medical History / Comment(s): brain coils, ITP Last Myocardial Infarction Date:: 2007 History of Any Multi-Drug Resistant Organisms: None Reported Past Surgical History: Heart Catheterization With Stent, Hysterectomy Past Anesthesia/Blood Transfusion Reactions: No Reported Reaction Date of Last Stent Placement:: 2007 Past Psychological History: No Psychological Hx Reported Smoking Status: Current every day smoker Past Alcohol Use History: None Reported Past Drug Use History: Marijuana Medications and Allergies Home Medications Medication Instructions Recorded Confirmed Type Aspirin EC [Ecotrin Low Dose] 81 mg PO DAILY 06/14/21 04/07/22 History Cholecalciferol (Vitamin D3) 125 mcg PO DAILY 06/14/21 04/07/22 History [Vitamin D3 (125 MCG = 5,000 IU)] Folic Acid 1 mg PO DAILY 06/14/21 04/07/22 History Isosorbide Mononitrate ER [Imdur] 60 mg PO BID 06/14/21 04/07/22 History Levothyroxine Sodium [Synthroid] 88 mcg PO DAILY 06/14/21 04/07/22 History Ramipril 10 mg PO BID 06/14/21 04/07/22 History Rosuvastatin Calcium [Crestor] 40 mg PO Q48H 06/14/21 04/07/22 History Sertraline [Zoloft] 100 mg PO DAILY 06/14/21 04/07/22 History Carvedilol [Coreg] 3.125 mg PO BID 04/07/22 04/07/22 History Melatonin 10mg Gummy 30 mg PO HS 04/07/22 04/07/22 History OXcarbazepine [Trileptal] 600 mg PO BID 04/07/22 04/07/22 History Zonisamide 100 mg PO HS 04/07/22 04/07/22 History Zonisamide [Zonegran] 50 mg PO HS 04/07/22 04/07/22 History amLODIPine [Norvasc] 5 mg PO DAILY 04/07/22 04/07/22 History Allergies Allergy/AdvReac Type Severity Reaction Status Date / Time No Known Allergies Allergy Verified 04/07/22 15:48 Physical Exam Vitals: Vital Signs Temp Pulse Resp BP BP Pulse Ox 04/09/22 07:00 98.1 F 58 L 16 160/67 96 04/09/22 02:00 98.3 F 65 17 127/62 98 04/09/22 01:16 16 04/08/22 19:33 98.3 F 52 L 16 158/69 98 04/08/22 14:09 98 F 56 L 16 158/67 97 Intake and Output 04/08/22 04/09/22 04/09/22 22:59 06:59 14:59 Intake Total 460 500 90 Balance 460 500 90 Intake: Oral 460 500 90 Other: # Voids 1 0 Results 04/09/22 06:55 04/09/22 06:55 CBC 04/09/22 Range/Units 06:55 WBC 5.56 (4.50-10.00) X 10*3/uL RBC 3.71 L (4.10-5.20) X 10*6/uL Hgb 11.4 L (12.0-15.0) g/dL Hct 35.2 L (37.2-46.3) % Plt Count 215 (140-440) X 10*3/uL Comprehensive Metabolic Panel 04/09/22 Range/Units 06:55 Sodium 141 (135-145) mmol/L Potassium 3.6 (3.5-5.5) mmol/L Chloride 107 (96-109) mmol/L Carbon Dioxide 25.4 (20.0-27.5) mmol/L BUN 11.1 (9.0-27.0) mg/dL Creatinine 1.0 (0.6-1.5) mg/dL Glucose 86 (70-110) mg/dL Calcium 8.8 (8.7-10.3) mg/dL Current Medications Generic Name Dose Route Start Last Admin Trade Name Freq PRN Reason Stop Dose Admin Acetaminophen 650 mg 04/07/22 18:26 04/09/22 06:34 Acetaminophen Tab 325 Mg Tab PO 650 mg Q6HR PRN Administration Mild Pain or Fever > 100.5 Amlodipine Besylate 5 mg 04/08/22 09:00 04/09/22 09:04 Amlodipine 5 Mg Tab PO 5 mg DAILY DANNY Administration Aspirin 81 mg 04/08/22 09:00 04/09/22 09:04 Aspirin 81 Mg PO 81 mg DAILY DANNY Administration Atorvastatin Calcium 80 mg 04/07/22 18:30 04/07/22 20:56 Atorvastatin 80 Mg Tab PO 80 mg Q48H DANNY Administration Bisacodyl 5 mg 04/07/22 18:26 Bisacodyl 5 Mg Tablet.Dr PO DAILY PRN Constipation Cholecalciferol 125 mcg 04/08/22 09:00 04/09/22 09:04 Cholecalciferol 125 Mcg (5000 Iu) Tablet PO 125 mcg DAILY DANNY Administration Clopidogrel Bisulfate 75 mg 04/07/22 18:30 04/09/22 09:04 Clopidogrel 75 Mg Tab PO 75 mg DAILY DANNY Administration Enoxaparin Sodium 40 mg 04/08/22 09:00 04/09/22 09:06 Enoxaparin 40 Mg/0.4 Ml Syringe SQ Not Given DAILY DANNY Folic Acid 1 mg 04/08/22 09:00 04/09/22 09:04 Folic Acid 1 Mg Tab PO 1 mg DAILY DANNY Administration Isosorbide Mononitrate 60 mg 04/07/22 21:00 04/09/22 09:04 Isosorbide Mononitrate Er 60 Mg Tab.Er.24h PO 60 mg BID DANNY Administration Levothyroxine Sodium 88 mcg 04/08/22 09:00 04/09/22 09:03 Levothyroxine 88 Mcg Tab PO 88 mcg DAILY DANNY Administration Lisinopril 40 mg 04/07/22 21:00 04/09/22 09:03 Lisinopril 20 Mg Tab PO 40 mg BID DANNY Administration Lorazepam 1 mg 04/07/22 18:26 04/09/22 09:57 Lorazepam 2 Mg/Ml Inj IV 1 mg Q6HR PRN Administration Seizures Magnesium Hydroxide 2,400 mg 04/07/22 18:26 Magnesium Hydroxide 2,400 Mg/10 Ml Cup PO DAILY PRN Constipation Meclizine HCl 25 mg 04/07/22 15:59 04/09/22 09:03 Meclizine 25 Mg Tab PO 25 mg TID PRN Administration Vertigo Metoclopramide HCl 5 mg 04/07/22 15:57 04/07/22 20:12 Metoclopramide 5 Mg/Ml 2 Ml Vial IVP 5 mg Q6HR PRN Administration Nausea And Vomiting Naloxone HCl 0.2 mg 04/07/22 18:26 Naloxone 0.4 Mg/Ml 1 Ml Vial IV Q2M PRN Opioid Reversal Nicotine 1 patch 04/08/22 09:00 04/09/22 09:06 Nicotine 14mg/24hr Patch TRANSDERM Not Given DAILY DANNY Ondansetron HCl 4 mg 04/07/22 18:26 04/09/22 06:33 Ondansetron 4 Mg/2 Ml Vial IVP 4 mg Q8HR PRN Administration Nausea And Vomiting Oxcarbazepine 600 mg 04/07/22 21:00 04/09/22 09:04 Oxcarbazepine 300 Mg Tab PO 600 mg BID DANNY Administration Prochlorperazine Maleate 5 mg 04/07/22 18:26 Prochlorperazine 5 Mg Tab PO Q8HR PRN Nausea And Vomiting Sertraline HCl 100 mg 04/08/22 09:00 04/09/22 09:03 Sertraline 100 Mg Tab PO 100 mg DAILY DANNY Administration Zonisamide 150 mg 04/07/22 18:30 04/09/22 09:05 Zonisamide 25 Mg Cap PO 150 mg DAILY DANNY Administration Intake and Output 04/08/22 04/09/22 04/09/22 22:59 06:59 14:59 Intake Total 460 500 90 Balance 460 500 90 Intake: Oral 460 500 90 Other: # Voids 1 0 04/09/22 06:55 04/09/22 06:55
--- NOTE | 2022-04-09 13:37 | EEG ---
ELECTROENCEPHALOGRAM REPORT DATE OF SERVICE: 04/09/2022. CLINICAL HISTORY: This is a 66-year-old woman with history of seizure who has shaking of the legs earlier today. The video EEG is obtained to evaluate for seizure epileptiform activity. RELEVANT MEDICATION: Trileptal, Zonegran And Ativan. EEG TYPE: The EEG type is a routine 21 channel EEG is performed with video using the 10/20 electrode placement system. DESCRIPTION: Wakefulness and drowsiness are obtained. During awake state, the posterior- dominant rhythm consists of low to moderate voltage of 8-8.5 hertz activity. There is no physiological stage 2 sleep architecture seen. There is no focal slowing. Interictal and ictal is none. Photic stimulation did not evoke a posterior driving response. There is no abnormality during the photic stimulation. Hyperventilation is not performed. CLINICAL INTERPRETATION: This is a normal routine EEG. There is no focal slowing, epileptiform discharge or seizure on the EEG. Clinical correlation is recommended. DWAYNE / FARAZ: [id number] / [email or web address]
[2022-04-09] MEDS ORDERED: LORazepam 2 MG/ML INJ IV STA (17:24)
--- NOTE | 2022-04-09 17:35 | P.PN ---
Subjective Progress Note Date: 04/09/22 I am seeing the patient for the first time during this admission. Per nurse today she has jerking of her lower extremities and patient was concerned she was having a seizure. Per nurse, patient was responsive during the episode and following commands. She denies of urinary, bowel incontinence or tongue bite. Per nurse no fixed gaze fixation during episode. Nurse gave her one dose of Ativan 1mg for her seizure-like activity. Currently feels her entire body is fatigue. She stated she has been seeing a neurologist over at [place] (Dr. Jacobs) and had multiple routine EEGs and had ambulatory in past and was suppose to have repeat ambulatory EEG but was postponed because of her hospital visit. Please refer to Dr. Dorantes's note for further details. He ordered routine EEG and MRI Brain. Objective - Vital Signs Vital signs: Vital Signs Temp 98.1 F 04/09/22 07:00 Pulse 58 L 04/09/22 07:00 Resp 16 04/09/22 07:00 BP 160/67 04/09/22 07:00 Pulse Ox 96 04/09/22 07:00 FiO2 Intake & Output 04/08/22 04/09/22 04/09/22 18:59 06:59 18:59 Intake Total 418 750 90 Balance 418 750 90 Intake: Oral 418 750 90 Other: # Voids 1 0 - Exam GENERAL: The patient is lying in bed and is not in acute distress. NEUROLOGICAL: Higher mental function: The patient is awake, alert, oriented to self, place and time. Patient is following commands. No aphasia and no neglect. Cranial nerves: The pupils are round, equal and reactive to light . Visual mi are full to confrontation throughout. Extraocular movement is intact no nystagmus is noted. Facial sensation is normal to touch throughout. The facial strength is normal throughout. Tongue is midline and moved [id number] without any difficulty. No dysarthria is noted. Shoulder shrug is normal bilaterally. Motor: The strength is hard to assess because feels generalized weakness. Is lifting above gravity throughout and no focality. Normal tone and bulk. Cerebellum: Has mild ataxia and overshooting with finger to nose on right. Normal on left. Sensation: Sensation is normal to touch throughout. - Labs CBC & Chem 7: 04/09/22 06:55 04/09/22 06:55 Labs: Abnormal Lab Results - Last 24 Hours (Table) 04/09/22 04/09/22 Range/Units 06:55 06:55 RBC 3.71 L (4.10-5.20) X 10*6/uL Hgb 11.4 L (12.0-15.0) g/dL Hct 35.2 L (37.2-46.3) % Anion Gap 8.60 L (10.00-18.00) mmol/L Est GFR (CKD-EPI)NonAf 59.5 L (60.0-200.0) BUN/Creatinine Ratio 11.10 L (12.00-20.00) Ratio Assessment and Plan Assessment: * Recurrent episodes (x4) of diplopia, associated with loss of balance, nausea, occasional vomiting, each lasting for 4-5 hours. Examination is significant for some ataxia in the right upper limb, and nystagmus on the right. Rule out stroke TIA. * Jerking of lowers on 04/09/2022 AM but was responsive, no urinary or bowel icontinence and no tongue bite. Rule out epileptic vs nonepileptic in nature. Per nurse had dysrhythmia. * History of stroke affected right side, with minimal deficit in the right hand. * History of cerebral aneurysm in 2008, status post endovascular coiling and stenting. * Coronary artery disease * Hypertension * Tobacco use * Seizure disorder Plan: * Pending MRI brain evaluate for an acute stroke. * Pending routine EEG. * I highly recommend repeat prolonged EEG as outpatient to capture these episodes to rule out if truly epileptic vs nonepileptic in nature and possibly consideration of Epilepsy monitoring unit for 5-7 days as outpatient. * CTA of head and neck revealed no significant stenosis reported. * 2-D echo to rule out embolic source: Pending. * Hemoglobin A1c: 5.5, lipid panel: Triglyceride 132, cholesterol 217, LDLs 141. * B12: 514, folate >20. TSH is normal 3.4 * Patient has been on aspirin [address] Dorantes started Plavix 75 mg daily for now. Long-term antiplatelet medication based upon MRI results. * Patient also has been having increased frequency of seizures. Patient is currently on oxcarbazepine 600 mg twice a day and zonisamide [address] Dorantes increased zonisamide from 100 to 150 mg daily. (Her home medication list mentions about dose of Zonegran 150 mg, but patient is very clear, that she is only taking Zonegran 100 mg daily). Patient needs to follow-up with her neurologist for continued management of her seizure disorder as well. * Telemetry monitoring rule out arrhythmia. * Cardiology is consulted by primary team. * Upon discharge, patient to follow-up with her neurologist (Dr. Vasquez) within 1-2 weeks. The plan is discussed with patient and her nurse. Akhil Sauceda M.D. Neuro-Hospitalist Time with Patient: Less than 30
[2022-04-09] MEDS: ATORVASTATIN 80 MG TAB PO SCH (18:21)
--- NOTE | 2022-04-09 18:46 | MR ---
EXAMINATION TYPE: MR brain wo/w con DATE OF EXAM: 04/09/2022 COMPARISON: None HISTORY: Stroke/TIA, ? meningioma right frontal region. CONTRAST: Standard multiplanar, multisequence MRI departmental protocol images were obtained without contrast a nd with 5 mL intravenous Gadavist gadolinium contrast. There is some cerebral cortical atrophy. There is no mass effect or midline shift. No evidence of int racranial hemorrhage. Diffusion images show no sign of an acute infarct. There are numerous discrete high signal white matter foci in the periventricular white matter. Many o f the lesions are peripheral at the esparza-white matter junction. The larger white matter lesions are s een in the left parietal lobe. Total number is more than 25. Most of the lesions measure less than 5 mm. There is mild thinning of the corpus callosum. There is also 8 mm lesion on the left side of the rashaun. There is a 15 x 10 mm enhancing mass at the right posterior frontal lobe convexity. This appears to b e extra-axial and consistent with meningioma. This mass appears densely calcified on the CT scan of . There is normal enhancement of the venous sinuses. IMPRESSION: Cerebral atrophy. Extensive white matter changes that likely relate to microvascular ischemia. Demyel inating disease not excluded. No acute cortical infarct. Right posterior frontal lobe convexity meningioma.
[2022-04-10 08:09] VITALS: BP 190/84; PULSE 61; RESP 14; TEMP 99.8
[2022-04-10] MEDS: NICOTINE 14MG/24HR PATCH TRANSDERM SCH ×2 (08:44→08:53)
[2022-04-10] MEDS: FOLIC ACID 1 MG TAB PO SCH (08:45)
[2022-04-10] MEDS: CHOLECALCIFEROL 125 MCG (5000 IU) TABLET PO SCH (08:45)
[2022-04-10] MEDS: OXcarbazepine 300 MG TAB PO SCH (08:45)
[2022-04-10] MEDS: amLODIPine 5 MG TAB PO SCH (08:45)
[2022-04-10] MEDS: ASPIRIN 81 MG PO SCH (08:45)
[2022-04-10] MEDS: ISOSORBIDE MONONITRATE ER 60 MG TAB.ER.24H PO SCH (08:45)
[2022-04-10] MEDS: ENOXAPARIN 40 MG/0.4 ML SYRINGE SQ SCH ×2 (08:45→08:53)
[2022-04-10] MEDS: LEVOTHYROXINE 88 MCG TAB PO SCH (08:45)
[2022-04-10] MEDS: CLOPIDOGREL 75 MG TAB PO SCH (08:46)
[2022-04-10] MEDS: ZONISAMIDE 25 MG CAP PO SCH (08:46)
[2022-04-10] MEDS: SERTRALINE 100 MG TAB PO SCH (08:46)
[2022-04-10] MEDS: lisinopriL 20 MG TAB PO SCH (08:46)
--- NOTE | 2022-04-10 09:43 | P.PN ---
Subjective Progress Note Date: 04/10/22 HISTORY OF PRESENT ILLNESS: This is a 66-year-old female with a past medical history significant for ischemic CVA, cerebral aneurysm with coiling and stenting, nicotine dependence, aortic insufficiency, hypertension, and coronary artery disease with previous stenting in 2007. Patient follows in the office with Dr. Jarvis. We have been asked to see the patient in consultation for abnormal echo. The patient is admitted to the hospital secondary to multiple episodes of diplopia, loss of balance, and nausea. Neurology is following. She denies any chest pain or pressure at the time of examination. Denies SOB. She reports having a seizure this morning. -Echocardiogram performed revealing ejection fraction 40-45% with apical aneurysm, [id number] mitral regurgitation, [id number] aortic stenosis with [id number] aortic regurgitation. -Previous echocardiogram performed in the office in June 2021 revealing ejection fraction 55%, moderate LVH, small apical aneurysm, moderate aortic regurgitation, mild mitral regurgitation, and moderate tricuspid regurgitation. * EKG reveals sinus bradycardia with no signs of acute ischemia * Chest xray negative for acute process * Laboratory data: WBC 5.56. Hemoglobin 11.4. Platelet count 215. Sodium 141. Potassium 3.6. BUN 11. Creatinine 1.0. * Current home cardiac medications include aspirin 81 mg daily, Imdur 60 mg twice a day, amlodipine 5 mg daily, Ramipril 10 mg twice a day, Crestor 40 mg every 48 hours, and carvedilol 3.125 mg twice a day * Patient underwent Daniela scan in May 2021 which was negative for acute ischemia. It did reveal a small fixed defect at the apex suggestive of possible previous [place]. * Cardiac catheterization history: Unavailable at this time 04/10/2022 Patient examined this morning at the bedside. Patient denies chest pain or pressure. She denies shortness of breath. MRI of the brain completed revealing cerebral atrophy. Extensive white matter changes that likely related to microvascular ischemia. Demyelinating disease not excluded. No acute cortical infarct. Right posterior frontal lobe convexity meningioma. PHYSICAL EXAM: VITAL SIGNS: Reviewed. GENERAL: Well-developed in no acute distress. HEENT: Head is normocephalic. Pupils are equal, round. Sclerae anicteric. Mucous membranes of the mouth are moist. Neck supple. No JVD or thyromegaly LUNGS: Respirations even and unlabored. Lungs essentially clear to auscultation bilaterally. HEART: Regular rate and rhythm. S1 and S2 heard. ABDOMEN: Soft. Nondistended. Nontender. EXTREMITIES: Normal range of motion. No clubbing or cyanosis. Peripheral pulses intact. No lower extremity edema NEUROLOGIC: Awake and alert. Oriented x 3. ASSESSMENT: Multiple episodes of diplopia, loss of balance, and nausea Coronary artery disease with previous stenting History of CVA History of cerebral aneurysm with coiling and stenting Known valvular heart disease Known small apical aneurysm noted on echocardiogram Seizure disorder PLAN: 2D echo reviewed. Patient with known apical aneurysm and valvular heart disease. EF slightly decreased, however no wall motion abnormalities are noted. Neurology following Patients symptoms do not appear to be cardiac in etiology We will sign off. Please reconsult if needed Nurse practitioner note has been reviewed by physician. Signing provider agrees with the documented findings, assessment, and plan of care. Objective - Vital Signs Vital signs: Vital Signs Temp 99.8 F H 04/10/22 08:00 Pulse 61 04/10/22 08:00 Resp 14 04/10/22 08:00 BP 190/84 04/10/22 08:00 Pulse Ox 99 04/10/22 08:00 FiO2 Intake & Output 04/09/22 04/10/22 04/10/22 18:59 06:59 18:59 Intake Total 90 Balance 90 Intake: Oral 90 Other: # Voids 2 - Labs CBC & Chem 7: 04/09/22 06:55 04/09/22 06:55 Labs: Abnormal Lab Results - Last 24 Hours (Table) 04/09/22 04/09/22 Range/Units 06:55 06:55 RBC 3.71 L (4.10-5.20) X 10*6/uL Hgb 11.4 L (12.0-15.0) g/dL Hct 35.2 L (37.2-46.3) % Anion Gap 8.60 L (10.00-18.00) mmol/L Est GFR (CKD-EPI)NonAf 59.5 L (60.0-200.0) BUN/Creatinine Ratio 11.10 L (12.00-20.00) Ratio
[2022-04-10 10:51] LABS: Basophils # (A) 0.06 X 10*3/uL (0.00-0.10); Basophils % (A) 1.1 %; Eosinophils # (A) 0.15 X 10*3/uL (0.04-0.35); Eosinophils % (A) 2.9 %; HCT 39.9 % (37.2-46.3); Immature Grans, Automated 0.2 %; Lymphocytes # (A) 1.11 X 10*3/uL (0.90-5.00); Lymphocytes % (A) 21.2 %; MCH 30.8 pg (27.0-32.0); MCHC 32.6 g/dL (32.0-37.0); MCV 94.5 fL (80.0-97.0); Mean Platelet Volume 9.4 fL (9.5-12.2); Monocytes # (A) 0.35 X 10*3/uL (0.20-1.00); Monocytes % (A) 6.7 %; NRBC Per 100 WBC 0 /100 WBCS (0.0-0.0); Neutrophils # (A) 3.56 X 10*3/uL (1.80-7.70); Neutrophils % (A) 67.9 %; Platelet Count 233 X 10*3/uL (140-440); RBC 4.22 X 10*6/uL (4.10-5.20); RDW 13.4 % (11.5-14.5); WBC 5.24 X 10*3/uL (4.50-10.00)
[2022-04-10 10:57] LABS: African American GFR (CKD) 68.9 (60.0-200.0); Anion Gap 10.8 mmol/L (10.00-18.00); BUN/Creat Ratio 11.9 Ratio (12.00-20.00); Blood Urea Nitrogen 11.9 mg/dL (9.0-27.0); Calcium 9.3 mg/dL (8.7-10.3); Carbon Dioxide 25.2 mmol/L (20.0-27.5); Magnesium 1.9 mg/dL (1.5-2.4); Non-African American GFR(CKD) 59.5 (60.0-200.0); Potassium 3.8 mmol/L (3.5-5.5)
--- NOTE | 2022-04-10 14:15 | P.DS ---
Providers Date of admission: 04/07/22 18:54 Expected date of discharge: 04/10/22 Attending physician: Kari Mireles MD Consults: 04/07/22 15:56 Consult Physician Urgent Consulting Provider: Shawn Dorantes Consult Reason/Comments: vertigo, off balance Do you want consulting provider notified?: Yes Primary care physician: [facility] Course: #Double vision with ataxia and nausea vomiting status post fall #History of seizure disorder #History of brain aneurysm status post coiling 2008 #Acute dehydration #Unexplained weight loss #Hypothyroidism #Essential hypertension #Ongoing tobacco abuse 66-year-old female with past medical history significant for seizure disorder, CVA status post stent in 2006. History of brain aneurysm status post coiling in 2008. Patient presented to the emergency room with a chief complaint of intractable nausea vomiting associated with the patient and falls 2 days leading to small laceration to the left eyelid. Workup in emergency room including Negative CT angiogram of the brain, negative CT angiogram of the neck minimal plaque at the carotid artery bifurcation. CT of the brain without contrast unremarkable. EEG was done and came back negative. Neurologist ordered MRI of the brain without without contrast pending the report from previous brain aneurysmal coiling, it returned with extensive white matter changes consistent with microvascular ischemia, also with right posterior frontal lobe meningioma. 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 She will f/u with Neurology for this and meningioma. Pt also was quite labile regarding life stressors and reported weight loss, depression, and loss of appetite leading up to hospitalization. She was recommended to f/u with psychiatry and therapy. Home care services offered and set up for COSTUMED CHARACTER ENTERTAINER and PT/OT. I spent 36 minutes coordinating this complex discharge Physical examination: Gen: awake, alert HEENT: normocephalic, atraumatic, good hearing acuity, moist mucous membranes Resp: good air exchange, breathing comfortably with no accessory muscle use CVS: good distal perfusion x 4, GI: soft, NTTP, ND : no SPT, no CVAT, goldstein catheter not present MSK: no pitting edema, no clubbing Neuro: non-focal, moving all extremities Psych: cooperative, labile mood Patient Condition at Discharge: Good Plan - Discharge Summary Discharge Rx Participant: No New Discharge Prescriptions: New Clopidogrel [Plavix] 75 mg PO DAILY #30 tab Mirtazapine [Remeron] 7.5 mg PO HS #15 tab Continue Sertraline [Zoloft] 100 mg PO DAILY Ramipril 10 mg PO BID Levothyroxine Sodium [Synthroid] 88 mcg PO DAILY Isosorbide Mononitrate ER [Imdur] 60 mg PO BID Folic Acid 1 mg PO DAILY OXcarbazepine [Trileptal] 600 mg PO BID Melatonin 10mg Gummy 30 mg PO HS Zonisamide 100 mg PO HS Carvedilol [Coreg] 3.125 mg PO BID Rosuvastatin Calcium [Crestor] 40 mg PO Q48H Cholecalciferol (Vitamin D3) [Vitamin D3 (125 MCG = 5,000 IU)] 125 mcg PO DAILY Aspirin EC [Ecotrin Low Dose] 81 mg PO DAILY amLODIPine [Norvasc] 5 mg PO DAILY Zonisamide [Zonegran] 50 mg PO HS Discharge Medication List Aspirin EC [Ecotrin Low Dose] 81 mg PO DAILY 06/14/21 [History] Cholecalciferol (Vitamin D3) [Vitamin D3 (125 MCG = 5,000 IU)] 125 mcg PO DAILY 06/14/21 [History] Folic Acid 1 mg PO DAILY 06/14/21 [History] Isosorbide Mononitrate ER [Imdur] 60 mg PO BID 06/14/21 [History] Levothyroxine Sodium [Synthroid] 88 mcg PO DAILY 06/14/21 [History] Ramipril 10 mg PO BID 06/14/21 [History] Rosuvastatin Calcium [Crestor] 40 mg PO Q48H 06/14/21 [History] Sertraline [Zoloft] 100 mg PO DAILY 06/14/21 [History] Carvedilol [Coreg] 3.125 mg PO BID 04/07/22 [History] Melatonin 10mg Gummy 30 mg PO HS 04/07/22 [History] OXcarbazepine [Trileptal] 600 mg PO BID 04/07/22 [History] Zonisamide 100 mg PO HS 04/07/22 [History] Zonisamide [Zonegran] 50 mg PO HS 04/07/22 [History] amLODIPine [Norvasc] 5 mg PO DAILY 04/07/22 [History] Clopidogrel [Plavix] 75 mg PO DAILY #30 tab 04/10/22 [Rx] Mirtazapine [Remeron] 7.5 mg PO HS #15 tab 04/10/22 [Rx] Follow up Appointment(s)/Referral(s): Charley Woody MD [Primary Care Provider] - 1-2 days [facility], [NON-STAFF] - 1-2 Days Patient Instructions/Handouts: Mirtazapine (By mouth) Activity/Diet/Wound Care/Special Instructions: Please follow up with Psychiatrist and Therapist of your choice - The best way to find an in networking administrator is to call your insurance or navigate to their website, and use their search feature to find an appropriate physician and therapist that will fit your needs Please follow up with your Neurologist within 1 week to set up ambulatory EEG testing Note: for your mood and appetite, you were started on remeron (mirtazipine), please refer to informational packet for more information. Discharge/Stand Alone Forms: Who Do I Call?, Community Resources, Help In The Home, Outpatient Counseling, Personal Face Worker Discharge Disposition: HOME WITH HOME HEALTH SERVICES
--- NOTE | 2022-04-10 17:05 | P.PN ---
Subjective Progress Note Date: 04/10/22 The patient is seen at bedside and feels about the same. No further seizure- like activity per nurse. Objective - Vital Signs Vital signs: Vital Signs Temp 99.8 F H 04/10/22 08:00 Pulse 61 04/10/22 08:00 Resp 14 04/10/22 08:00 BP 190/84 04/10/22 08:00 Pulse Ox 99 04/10/22 08:00 FiO2 Intake & Output 04/09/22 04/10/22 04/10/22 18:59 06:59 18:59 Intake Total 90 240 Balance 90 240 Intake: Oral 90 240 Other: # Voids 2 - Exam GENERAL: The patient is lying in bed and is not in acute distress. NEUROLOGICAL: Higher mental function: The patient is awake, alert, oriented to self, place and time. Patient is following commands. No aphasia and no neglect. Cranial nerves: The pupils are round, equal and reactive to light . Visual fiel ds are full to confrontation throughout. Extraocular movement is intact no nystagmus is noted. Facial sensation is normal to touch throughout. The facial strength is normal throughout. Tongue is midline and moved [id number] without any difficulty. No dysarthria is noted. Shoulder shrug is normal bilaterally. Motor: The strength is lifting above gravity throughout and no focality. Normal tone and bulk. Cerebellum: Has mild ataxia and overshooting with finger to nose on right. Normal on left. Sensation: Sensation is normal to touch throughout. - Labs CBC & Chem 7: 04/10/22 08:00 04/10/22 08:00 Labs: Abnormal Lab Results - Last 24 Hours (Table) 04/10/22 04/10/22 Range/Units 08:00 08:00 MPV 9.4 L (9.5-12.2) fL Est GFR (CKD-EPI)NonAf 59.5 L (60.0-200.0) BUN/Creatinine Ratio 11.90 L (12.00-20.00) Ratio Assessment and Plan Assessment: * Recurrent episodes (x4) of diplopia, associated with loss of balance, nausea, occasional vomiting, each lasting for 4-5 hours. No stroke on MRI Brain. * Jerking of lowers on 04/09/2022 AM but was responsive, no urinary or bowel icontinence and no tongue bite. Rule out epileptic vs nonepileptic in nature. Per nurse had dysrhythmia. * History of stroke affected right side, with minimal deficit in the right hand. * History of cerebral aneurysm in 2009, status post endovascular coiling and stenting. * Right frontal meningioma. * Coronary artery disease * Hypertension * Tobacco use * Seizure disorder Plan: * MRI brain w/ and w/o: It is reported as cerebral atrophy. Extensive white matter changes that is likely related to microvascular ischemia. The mind is is not excluded. No acute cortical infarct. Right posterior frontal lobe convexity meningioma. And it's measuring 15 x 10 mm. I personally reviewed the MRI and there is no acute subacute ischemia. I do agree the patient does have right frontal meningioma. * Routine EEG: Normal. There is no focal slowing, epileptiform discharges or seizure on the EEG. * I highly recommend repeat prolonged EEG as outpatient to capture these episodes to rule out if truly epileptic vs nonepileptic in nature and possibly consideration of Epilepsy monitoring unit for 5-7 days as outpatient. * CTA of head and neck revealed no significant stenosis reported. * 2-D echo to rule out embolic source: Pending. * Hemoglobin A1c: 5.5, lipid panel: Triglyceride 132, cholesterol 217, LDLs 141. * B12: 514, folate >20. TSH is normal 3.4 * Patient has been on aspirin [address] Dorantes started Plavix 75 mg daily for now. Long-term antiplatelet medication based upon MRI results. * Patient also has been having increased frequency of seizures. Patient is currently on oxcarbazepine 600 mg twice a day and zonisamide [address] Dorantes increased zonisamide from 100 to 150 mg daily. (Her home medication list mentions about dose of Zonegran 150 mg, but patient is very clear, that she is only taking Zonegran 100 mg daily). Patient needs to follow-up with her neurologist for continued management of her seizure disorder as well. * Telemetry monitoring rule out arrhythmia. * Cardiology is consulted by primary team. * Upon discharge, patient to follow-up with her neurologist (Dr. Vasquez) within 1-2 weeks. Recommend patient to follow-up with neurosurgeon as outpatient for her meningioma. The plan is discussed with patient and her nurse. No additional work-up and patient is clear for discharge from neurological perspective. Akhil Sauceda M.D. Neuro-Hospitalist Time with Patient: Less than 30
== END 2022-04-10 11:59 | disposition home health service (06) | DRG 123 ==
LOC: EC 12:08 → 6NMEDSUR 15:55 → OBSVTOIN 18:54
PROVIDERS: ADMIT Hospitalist; ATTEND Hospitalist
DX: H53.2 Diplopia (principal); I67.1 Cerebral aneurysm, nonruptured; G40.909 Epilepsy, unspecified, not intractable, without status epilepticus; D32.0 Benign neoplasm of cerebral meninges; G31.9 Degenerative disease of nervous system, unspecified; E86.0 Dehydration; I08.3 Combined rheumatic disorders of mitral, aortic and tricuspid valves; I10 Essential (primary) hypertension; I25.10 Atherosclerotic heart disease of native coronary artery without angina pectoris; E03.9 Hypothyroidism, unspecified; E78.5 Hyperlipidemia, unspecified; S01.112A Laceration without foreign body of left eyelid and periocular area, initial encounter; R27.0 Ataxia, unspecified; R11.2 Nausea with vomiting, unspecified; R63.4 Abnormal weight loss; H55.00 Unspecified nystagmus; F32.A Depression, unspecified; I25.2 Old myocardial infarction; R00.1 Bradycardia, unspecified; R19.7 Diarrhea, unspecified; F17.210 Nicotine dependence, cigarettes, uncomplicated; Z71.6 Tobacco abuse counseling; Z79.82 Long term (current) use of aspirin; Z79.890 Hormone replacement therapy; Z79.899 Other long term (current) drug therapy; Z95.828 Presence of other vascular implants and grafts; Z95.5 Presence of coronary angioplasty implant and graft; Z90.710 Acquired absence of both cervix and uterus; Z87.42 Personal history of other diseases of the female genital tract; Z86.73 Personal history of transient ischemic attack (TIA), and cerebral infarction without residual deficits; Z86.2 Personal history of diseases of the blood and blood-forming organs and certain disorders involving the immune mechanism; Z98.890 Other specified postprocedural states; W19.XXXA Unspecified fall, initial encounter
CPT/HCPCS: 36415; 70450; 70496; 70498; 70553; 71046; 71260; 74177; 80048; 80053; 80061; 82607; 82746; 83036; 83690; 83735; 84443; 84484; 85025; 85610; 85730; 86140; 93005; 93306; 95816; 96361; 96374; 99285

== ENCOUNTER → 2022-05-28 | Outpatient (CLI) | payer MEDICARE, BC ==
--- NOTE | 2022-05-28 09:02 | CT ---
EXAMINATION TYPE: CT chest w con DATE OF EXAM: 05/28/2022 COMPARISON: 04/08/2022 and 01/02/2021 HISTORY: 66-year-old female R91.8, Chronic cough. TECHNIQUE: Contiguous axial scanning of the chest after the administration of 70ml mL of Isovue 300. Coronal/sagittal reconstructions performed. CT DLP: 114.3mGycm. Automatic exposure control utilized for a dose reduction. FINDINGS: Heart normal size without pericardial effusion. There is three-vessel coronary artery calcifications are present. Borderline ectatic upper descending thoracic aorta at 3.0 cm. Scattered mild atherosclerotic calcific ations are present throughout the aorta. Bovine configuration to the aortic arch. Small thyroid gland. 7 mm hypodense nodule in the left lobe redemonstrated. No thoracic lymphadenopathy. Scattered mild centrilobular edema. Mild central bronchial wall thickening is noted. Strandy atelecta sis/scarring in the lower lungs. Faint 3 mm right upper lobe pulmonary nodule, axial image 11 is unchanged. Tiny 3 mm pulmonary nodule posterolateral right lower lobe, axial image 32. Tiny 2 mm an adjacent 3 mm lateral left lower lobe pulmonary nodule, axial image 29 and 28. 4 mm left upper lobe pulmonary nodule, axial image 16. These all appear to be relatively unchanged. An additional one-year follow-up can be performed. Visualized upper abdomen shows moderate atherosclerotic calcifications within the aorta. Mild thicken ing of the left adrenal gland without discrete nodularity. Subcentimeter hypodensity posterior right liver lobe, too small for accurate CT characterization, lik corina tiny cyst. There is also focus of hypervascularity posterior right liver lobe, likely small focus of vascular shunting or flash filling hemangioma. Mild degenerative disc disease midthoracic spine. There is a reverse S-shaped curvature of the thorac ic spine. IMPRESSION: 1. COPD with mild emphysema. 2. A few scattered pulmonary nodules measuring up to 4 mm remain unchanged. Consider an additional on e-year follow-up surveillance exam.
== END | disposition home or self-care (01) ==
LOC: RADCTMAIN 07:53
PROVIDERS: ATTEND Internal Medicine
DX: J43.9 Emphysema, unspecified (principal); R91.8 Other nonspecific abnormal finding of lung field
CPT/HCPCS: 71260; Q9967

== ENCOUNTER → 2022-07-27 | Outpatient (CLI) | payer MEDICARE, BC ==
--- NOTE | 2022-07-31 10:20 | MM ---
Reason for Exam: Screening (asymptomatic). Patient History: Menarche at age 14. First Full-Term at age 19. Hysterectomy at age 27. Postmenopausal. Estrogen, starting at age 27 for 2 years. Sister had breast cancer. Risk Values: Skyla 5 year model risk: 3.0%. NCI Lifetime model risk: 11.8%. Prior Study Comparison: No prior studies available for comparison. Tissue Density: There are scattered fibroglandular densities. Findings: Analyzed By CAD. There is no suspicious group of microcalcifications or new suspicious mass in either breast. Overall Assessment: Negative, BI-RAD 1 Management: Screening Mammogram of both breasts in 1 year. A clinical breast exam by your physician is recommended on an annual basis and results should be correlated with mammographic findings. Electronically signed and approved by: Shon Miller M.D.
== END | disposition home or self-care (01) ==
LOC: RADMAMWWP 07:48
PROVIDERS: ATTEND Family Medicine
DX: Z12.31 Encounter for screening mammogram for malignant neoplasm of breast (principal); Z78.0 Asymptomatic menopausal state; Z80.3 Family history of malignant neoplasm of breast
CPT/HCPCS: 77063; 77067

== ENCOUNTER → 2022-11-12 | Outpatient (CLI) | payer MEDICARE, BC ==
[2022-11-12 15:11] LABS: ALT 14 U/L (8-44); AST 17 U/L (13-35); African American GFR (CKD) 68.5 (60.0-200.0); Albumin 4.4 g/dL (3.8-4.9); Alkaline Phosphatase 74 U/L (41-126); Blood Urea Nitrogen 17.4 mg/dL (9.0-27.0); Calcium 9.5 mg/dL (8.7-10.3); Carbon Dioxide 21.5 mmol/L (20.0-27.5); Chloride 106 mmol/L (96-109); Glucose 93 mg/dL (70-110); Non-African American GFR(CKD) 59.1 (60.0-200.0); Sodium 141 mmol/L (135-145); Total Bilirubin <0.15 mg/dL (0.30-1.20); Total Protein 6.3 g/dL (6.2-8.2)
== END | disposition home or self-care (01) ==
LOC: LABWHC1 10:24
PROVIDERS: ATTEND Nurse Practitioner Adult Health
DX: I10 Essential (primary) hypertension (principal)
CPT/HCPCS: 36415; 80053; 83735

== ENCOUNTER 2023-02-03 12:35 | Emergency (ER) | payer MEDICARE, BC ==
[2023-02-03 12:48] VITALS: TEMP 98.6
[2023-02-03] MEDS ORDERED: ONDANSETRON 4 MG/2 ML VIAL IVP STA (12:52)
--- NOTE | 2023-02-03 13:01 | ED ---
General Adult HPI - General Chief complaint: Seizure Stated complaint: Seizures,Nausea Time Seen by Provider: 02/03/23 12:40 Source: patient, EMS, RN notes reviewed, old records reviewed Mode of arrival: EMS Limitations: no limitations - History of Present Illness Initial comments: This is a 67-year-old female who is brought in by EMS. EMS states that the patient's states she had 3 seizures lasting about a minute each. Last seizure was in December. Patient herself states she's been sick all morning vomiting. Patient denies any fevers chills patient denies any chest pain or shortness of breath per patient denies abdominal pain but states she's very nauseated. Patient did receive 4 mg of Zofran and route but she remains nauseated. Patient continues to have some dry heaves. Patient denies headache patient denies any numbness or weakness. Patient denies lightheadedness. - Related Data Home Medications Medication Instructions Recorded Confirmed Aspirin EC [Ecotrin Low Dose] 81 mg PO DAILY 06/14/21 04/07/22 Cholecalciferol (Vitamin D3) 125 mcg PO DAILY 06/14/21 04/07/22 [Vitamin D3 (125 MCG = 5,000 IU)] Folic Acid 1 mg PO DAILY 06/14/21 04/07/22 Isosorbide Mononitrate ER [Imdur] 60 mg PO BID 06/14/21 04/07/22 Levothyroxine Sodium [Synthroid] 88 mcg PO DAILY 06/14/21 04/07/22 Rosuvastatin Calcium [Crestor] 40 mg PO Q48H 06/14/21 04/07/22 Sertraline [Zoloft] 100 mg PO DAILY 06/14/21 04/07/22 ramipriL [Ramipril] 10 mg PO BID 06/14/21 04/07/22 Melatonin 10mg Gummy 30 mg PO HS 04/07/22 04/07/22 OXcarbazepine [Trileptal] 600 mg PO BID 04/07/22 04/07/22 Zonisamide 100 mg PO HS 04/07/22 04/07/22 Zonisamide [Zonegran] 50 mg PO HS 04/07/22 04/07/22 amLODIPine [Norvasc] 5 mg PO DAILY 04/07/22 04/07/22 carvediloL [Coreg] 3.125 mg PO BID 04/07/22 04/07/22 Previous Rx's Medication Instructions Recorded Clopidogrel [Plavix] 75 mg PO DAILY #30 tab 04/10/22 Mirtazapine [Remeron] 7.5 mg PO HS #15 tab 04/10/22 Allergies Allergy/AdvReac Type Severity Reaction Status Date / Time No Known Allergies Allergy Verified 02/03/23 12:47 Review of Systems ROS Statement: Those systems with pertinent positive or pertinent negative responses have been documented in the HPI. ROS Other: All systems not noted in ROS Statement are negative. Past Medical History Past Medical History: Chest Pain / Angina, CVA/TIA, Hyperlipidemia, Hypertension, Myocardial Infarction ([place]), Seizure Disorder, Thyroid Disorder Additional Past Medical History / Comment(s): brain coils, ITP Last Myocardial Infarction Date:: 2007 History of Any Multi-Drug Resistant Organisms: None Reported Past Surgical History: Heart Catheterization With Stent, Hysterectomy Past Anesthesia/Blood Transfusion Reactions: No Reported Reaction Date of Last Stent Placement:: 2007 Past Psychological History: No Psychological Hx Reported Smoking Status: Current every day smoker Past Alcohol Use History: None Reported Past Drug Use History: Marijuana General Exam - General Exam Comments Initial Comments: GENERAL: Patient is well-developed and well-nourished. Patient is nontoxic and well- hydrated and is in mild distress. ENT: Neck is soft and supple. No significant lymphadenopathy is noted. Oropharynx is clear. Moist mucous membranes. Neck has full range of motion without eliciting any pain. EYES: The sclera were anicteric and conjunctiva were pink and moist. Extraocular movements were intact and pupils were equal round and reactive to light. Eyelids were unremarkable. PULMONARY: Unlabored respirations. Good breath sounds bilaterally. No audible rales rhonchi or wheezing was noted. CARDIOVASCULAR: There is a regular rate and rhythm without any murmurs gallops or rubs. ABDOMEN: Soft and nontender with normal bowel sounds. SKIN: Skin is clear with no lesions or rashes and otherwise unremarkable. NEUROLOGIC: Patient is alert and oriented x3. Cranial nerves II through XII are grossly intact. Motor and sensory are also intact. Normal speech, volume and content. Symmetrical smile. MUSCULOSKELETAL: Normal extremities with adequate strength and full range of motion. LYMPHATICS: No significant lymphadenopathy is noted PSYCHIATRIC: Normal psychiatric evaluation. Limitations: no limitations Course Vital Signs 02/03/23 02/03/23 02/03/23 12:39 13:02 14:00 Temperature 98.6 F Pulse Rate 77 59 L Respiratory 22 18 18 Rate Blood Pressure 204/94 180/74 O2 Sat by Pulse 98 98 100 Oximetry 02/03/23 15:34 Temperature Pulse Rate 64 Respiratory 18 Rate Blood Pressure 184/91 O2 Sat by Pulse 96 Oximetry Medical Decision Making - Medical Decision Making EKG was interpreted by myself shows a sinus rhythm at 60 bpm OH interval 263 QRS is under QT interval 420 QTC is 441 per patient's EKG shows no ST segment elevation or depression. Was pt. sent in by a medical professional or institution (, PA, [facility], urgent care, hospital, or custodial...) When possible be specific @ -No Did you speak to anyone other than the patient for history (EMS, parent, family, police, friend...)? What history was obtained from this source @ -EMS gave the history because the patient was vomiting during the initial portion of her stay Did you review nursing and triage notes (agree or disagree)? Why? @ -I reviewed and agree with nursing and triage notes Were old charts reviewed (outside hosp., previous admission, EMS record, old EKG, old radiological studies, urgent care reports/EKG's, custodial records)? Report findings @ -No old charts were reviewed Differential Diagnosis (chest pain, altered mental status, abdominal pain women, abdominal pain men, vaginal bleeding, weakness, fever, dyspnea, syncope, headache, dizziness, GI bleed, back pain, seizure, CVA, palpatations, mental health, musculoskeletal)? @ -Differential Seizure: Recurrent seizure disorder, febrile seizure, alcohol withdrawal, stimulants, meningitis, encephalitis, intercranial hemorrhage, intracranial tumor, stroke, eclampsia, thyrotoxicosis, hypocalcemia, hyponatremia, hypernatremia, hypomagnesemia, psychogenic, this is not meant to be an all-inclusive list. EKG interpreted by me (3pts min.). @ -As above X-rays interpreted by me (1pt min.). @ -None done CT interpreted by me (1pt min.). @ -CT of the brain was interpreted by myself as no acute abnormality or changes from prior CTs U/S interpreted by me (1pt. min.). @ -None done What testing was considered but not performed or refused? (CT, X-rays, U/S, labs)? Why? @ -None What meds were considered but not given or refused? Why? @ -None Did you discuss the management of the patient with other professionals (professionals i.e. , PA, HRBP, lab, RT, psych nurse, criminal justice social worker, doorperson or luggage porter, teacher, animal park code enforcement officer, piano case and bench assembler)? Give summary @ -No Was smoking cessation discussed for >3mins.? @ -No Was critical care preformed (if so, how long)? @ -No Were there social determinants of health that impacted care today? How? (Homelessness, low income, unemployed, alcoholism, drug addiction, transportation, low edu. Level, literacy, decrease access to med. care, senior care, rehab)? @ -No Was there de-escalation of care discussed even if they declined (Discuss DNR or withdrawal of care, Hospice)? DNR status @ -No What co-morbidities impacted this encounter? (DM, HTN, Smoking, COPD, CAD, Cancer, CVA, ARF, Chemo, Hep., AIDS, mental health diagnosis, sleep apnea, morbid obesity)? @ -None Was patient admitted / discharged? Hospital course, mention meds given and route, prescriptions, significant lab abnormalities, going to OR and other pertinent info. @ -Patient received Zofran in the emergency department if she continued to have dry heaves she was then given Reglan and felt better but after a while she started having dry heaves again and then she was given droperidol. Patient was no longer vomiting felt better and wanted to go home was in the room and agreed to take her home Undiagnosed new problem with uncertain prognosis? @ -No Drug Therapy requiring intensive monitoring for toxicity (Heparin, Nitro, Insul in, Cardizem)? @ -No Were any procedures done? @ -No Diagnosis/symptom? @ -Generalized seizure Acute, or Chronic, or Acute on Chronic? @ -Acute Uncomplicated (without systemic symptoms) or Complicated (systemic symptoms)? @ -Complicated Side effects of treatment? @ -No Exacerbation, Progression, or Severe Exacerbation? @ -No Poses a threat to life or bodily function? How? (Chest pain, [place], [place], pneumonia, PE, COPD, DKA, ARF, appy, cholecystitis, CVA, Diverticulitis, Homicidal, Suicidal, threat to staff... and all critical care pts) @ -No Diagnosis/symptom? @ -Acute vomiting Acute, or Chronic, or Acute on Chronic? @ -Vomiting Uncomplicated (without systemic symptoms) or Complicated (systemic symptoms)? @ -Uncomplicated Side effects of treatment? @ -none Exacerbation, Progression, or Severe Exacerbation] @ -no Poses a threat to life or bodily function? @ -no - Lab Data Result diagrams: 02/03/23 13:28 02/03/23 13:28 Lab Results 02/03/23 02/03/23 Range/Units 13:28 13:28 WBC 12.9 H (3.8-10.6) k/uL RBC 3.88 (3.80-5.40) m/uL Hgb 12.8 (11.4-16.0) gm/dL Hct 36.0 (34.0-46.0) % MCV 92.8 (80.0-100.0) fL MCH 32.9 (25.0-35.0) pg MCHC 35.5 (31.0-37.0) g/dL RDW 13.7 (11.5-15.5) % Plt Count 294 (150-450) k/uL MPV 7.8 Neutrophils % 88 % Lymphocytes % 8 % Monocytes % 3 % Eosinophils % 0 % Basophils % 0 % Neutrophils # 11.3 H (1.3-7.7) k/uL Lymphocytes # 1.0 (1.0-4.8) k/uL Monocytes # 0.4 (0-1.0) k/uL Eosinophils # 0.0 (0-0.7) k/uL Basophils # 0.0 (0-0.2) k/uL Sodium 140 (137-145) mmol/L Potassium 3.2 L (3.5-5.1) mmol/L Chloride 109 H (98-107) mmol/L Carbon Dioxide 22 (22-30) mmol/L Anion Gap 9 mmol/L BUN 14 (7-17) mg/dL Creatinine 0.88 (0.52-1.04) mg/dL Est GFR (CKD-EPI)AfAm 80 (>60 ml/min/1.73 sqM) Est GFR (CKD-EPI)NonAf 70 (>60 ml/min/1.73 sqM) Glucose 171 H (74-99) mg/dL Calcium 9.2 (8.4-10.2) mg/dL Total Bilirubin 0.4 (0.2-1.3) mg/dL AST 43 H (14-36) U/L ALT 40 H (4-34) U/L Alkaline Phosphatase 78 (38-126) U/L Total Protein 6.8 (6.3-8.2) g/dL Albumin 4.3 (3.5-5.0) g/dL Disposition Clinical Impression: Generalized seizure, Acute vomiting Disposition: HOME SELF-CARE Instructions (If sedation given, give patient instructions): Seizure/Epilepsy Discharge Instructions & Follow-Up Is patient prescribed a controlled substance at d/c from ED?: No Referrals: None,Stated [REFERRING] - 1-2 days Time of Disposition: 15:54
[2023-02-03 13:02] VITALS: RESP 18
[2023-02-03] MEDS ORDERED: SODIUM CHLORIDE 0.9% 1,000 ML IV ONE (13:23)
[2023-02-03] MEDS ORDERED: METOCLOPRAMIDE 5 MG/ML 2 ML VIAL IVP STA (13:25)
[2023-02-03 13:39] LABS: Basophils % (A) 0 %; Eosinophils % (A) 0 %; HGB 12.8 gm/dL (11.4-16.0); Lymphocytes % (A) 8 %; MCH 32.9 pg (25.0-35.0); MCHC 35.5 g/dL (31.0-37.0); MCV 92.8 fL (80.0-100.0); Mean Platelet Volume 7.8; Monocytes # (A) 0.4 k/uL (0-1.0); Monocytes % (A) 3 %; Neutrophils # (A) 11.3 k/uL (1.3-7.7); Neutrophils % (A) 88 %; Platelet Count 294 k/uL (150-450); RBC 3.88 m/uL (3.80-5.40); RDW 13.7 % (11.5-15.5); WBC 12.9 k/uL (3.8-10.6)
--- NOTE | 2023-02-03 13:51 | CT ---
EXAMINATION TYPE: CT brain wo con DATE OF EXAM: 02/03/2023 HISTORY: Seizure CT DLP: 1258.4 mGycm. Automated Exposure Control for Dose Reduction was Utilized. TECHNIQUE: CT scan of the head is performed without contrast. COMPARISON: CT brain April 07, 2022 FINDINGS: There is no acute intracranial hemorrhage or midline shift identified. There is mild to m oderate diffuse ventricular and sulcal prominence redemonstrated. There is mild low-attenuation in t he periventricular white matter redemonstrated. Susceptibility artifact from aneurysm clip in the re gion of the anterior communicating artery is redemonstrated. There is persistent right frontal bony e xpansion with lytic and sclerotic appearance axial image 47 similar to prior studies. Etiology uncert ain. This may be product of old craniotomy site. The globes are intact and the visualized sinuses are clear. IMPRESSION: No acute intracranial hemorrhage or midline shift. There is mild to moderate diffuse ag e-related cerebral atrophy and mild chronic small vessel ischemic change along with aneurysm clip are all redemonstrated. No significant change from most recent studies.
[2023-02-03 13:53] LABS: Albumin 4.3 g/dL (3.5-5.0); Calcium 9.2 mg/dL (8.4-10.2); Potassium 3.2 mmol/L (3.5-5.1); Total Bilirubin 0.4 mg/dL (0.2-1.3); Total Protein 6.8 g/dL (6.3-8.2)
[2023-02-03] MEDS ORDERED: POTASSIUM CHLORIDE 20 MEQ in WATER FOR INJECTION 1 100ML.BAG IVPB STA (14:17)
[2023-02-03] MEDS ORDERED: ONDANSETRON 4 MG ODT STARTER PACK 2 TAB BTL PO STA (15:54)
[2023-02-03 17:30] VITALS: BP 178/84; PULSE 69
== END 2023-02-03 17:45 | disposition home or self-care (01) ==
LOC: EC 12:35
DX: R56.9 Unspecified convulsions (principal); R11.10 Vomiting, unspecified; I10 Essential (primary) hypertension; I25.2 Old myocardial infarction; E78.5 Hyperlipidemia, unspecified; F17.200 Nicotine dependence, unspecified, uncomplicated; F12.90 Cannabis use, unspecified, uncomplicated; Z79.82 Long term (current) use of aspirin; Z79.02 Long term (current) use of antithrombotics/antiplatelets; Z79.899 Other long term (current) drug therapy
CPT/HCPCS: 36415; 80053; 80203; 80183; 85025; 70450; 99285; 96365; 96366; 96375 ×3; 96361; J2765; J3480; J2405; S0119; J1790

== ENCOUNTER 2023-05-08 06:23 | Day surgery (SDC) | payer MEDICARE, BC ==
[2023-05-02 15:40] VITALS: BMI 19.5
[~2023-05-08 06:23] MED LIST: LACTATED RINGERS 1,000 ML IV SCH; LIDOCAINE 1% (10MG/ML) FOR IV START INTRADERMA PRN
[2023-05-08 07:18] VITALS: TEMP 98
[2023-05-08] MEDS ORDERED: ONDANSETRON 4 MG/2 ML VIAL ONE (08:14)
[2023-05-08] MEDS ORDERED: PROPOFOL 10 MG/ML 20 ML VIAL IV ONE (08:14)
--- NOTE | 2023-05-08 08:38 | P.PCN ---
Date of Procedure: 05/08/23 Procedure(s) Performed: BRIEF HISTORY: Patient is a 67-year-old pleasant white female scheduled for an elective colonoscopy as a part of evaluation of intermittent rectal bleeding for the last 6 months duration. PROCEDURE PERFORMED: Colonoscopy with snare polypectomy. PREOPERATIVE DIAGNOSIS: Rectal bleeding. IV sedation per Anesthesia. PROCEDURE: After informed consent was obtained, the patient, was brought into the endoscopy unit. IV sedation was administered by Anesthesia under continuous monitoring. Digital rectal examination was normal. Initially the Olympus CF-160 flexible video colonoscope was then inserted in the rectum, gradually advanced into the cecum without any difficulty. Careful examination was performed as the scope was gradually being withdrawn. Ileocecal valve and the appendiceal orifice were visualized and appeared normal. Prep was excellent. Mucosa of the cecum, ascending colon, transverse colon, appeared normal. The descending colon there was a 5 mm sessile polyp removed by snare polypectomy. Rest of the descending colon, sigmoid colon, and rectum appeared normal. Retroflexion was performed in the rectum and grade 2 internal hemorrhoids were seen. The patient tolerated the procedure well. IMPRESSION: 5 mm descending colon polyp status post snare polypectomy Grade 2 internal hemorrhoids RECOMMENDATIONS: Findings of this examination were discussed with the patient well as her family. She was advised to follow with the biopsy results. Recommend high-fiber diet and take fiber supplements a regular basis and avoid straining and constipation. Repeat screening colonoscopy in 5 years based the biopsy results.
[2023-05-08 09:23] VITALS: BP 171/81; PULSE 56; RESP 20
== END 2023-05-08 09:24 ==
LOC: ORWHC2ENDO 06:23
PROVIDERS: ATTEND Internal Medicine Gastroenterology
DX: D12.4 Benign neoplasm of descending colon (principal); K64.1 Second degree hemorrhoids; I25.2 Old myocardial infarction; I25.10 Atherosclerotic heart disease of native coronary artery without angina pectoris; I10 Essential (primary) hypertension; E78.5 Hyperlipidemia, unspecified; Z95.5 Presence of coronary angioplasty implant and graft; F17.210 Nicotine dependence, cigarettes, uncomplicated; Z86.73 Personal history of transient ischemic attack (TIA), and cerebral infarction without residual deficits; Z86.79 Personal history of other diseases of the circulatory system; Z79.02 Long term (current) use of antithrombotics/antiplatelets; Z79.82 Long term (current) use of aspirin; Z79.899 Other long term (current) drug therapy; Z88.8 Allergy status to other drugs, medicaments and biological substances
CPT/HCPCS: 88305; 45385; J2405; J2704

== ENCOUNTER → 2023-10-11 | Outpatient (CLI) | payer MEDICARE, BC ==
[2023-10-11 18:51] LABS: BUN/Creat Ratio 22.78 Ratio (12.00-20.00); Blood Urea Nitrogen 20.5 mg/dL (9.0-27.0); Calcium 9.7 mg/dL (8.7-10.3); Carbon Dioxide 22.8 mmol/L (21.6-31.8); Chloride 106 mmol/L (96-109); Glucose 99 mg/dL (70-110); Potassium 4.1 mmol/L (3.5-5.5); Sodium 141 mmol/L (135-145)
== END | disposition home or self-care (01) ==
LOC: LABWHC1 11:09
PROVIDERS: ATTEND Internal Medicine Clinical Cardiac Electrophysiology
DX: I50.9 Heart failure, unspecified (principal)
CPT/HCPCS: 36415; 80048

== ENCOUNTER → 2024-02-24 | Outpatient (CLI) | payer MEDICARE, BC ==
--- NOTE | 2024-02-25 12:08 | CTL ---
EXAMINATION TYPE: CT Low Dose Lung DATE OF EXAM ORDERED: 02/24/2024 COMPARISON: 05/28/2022 HISTORY: . Low Dose CT Lung Screening CT DLP: 48.[address] CTDI: 1.4 mGy IV CONTRAST USED: None. SCREENING VISIT: First visit TECHNIQUE: Low dose computed tomography scan was performed through the chest at 1 millimeter thick se ctions and reconstructed images in the coronal plane at [address] DIAGNOSTIC QUALITY: Satisfactory FINDINGS: LUNG NODULES: Not presentLeft lung: no nodules identified.Right lung: no nodules identified. LUNGS: COPD: Severity: None Fibrosis: Severity:None Lymph nodes: None Other findings: None RIGHT PLEURAL SPACE: Effusion: None Calcification: None Thickening: None Pneumothorax: None LEFT PLEURAL SPACE: Effusion: None Calcification: None Thickening: None Pneumothorax: None HEART: Heart Size: Mildly enlarged Coronary calcification: Mild Pericardial effusion: None OTHER FINDINGS: Upper abdomen: No significant abnormality Bony thorax: Degenerative changes Supraclavicular region: No significant abnormalityOther: No significant abnormalityI IMPRESSION: No pulmonary nodularity greater than [address]LLOW UP [address] CHEST RECOMMENDATION: Follow-up screening in one year CT LUNG RAD: LUNG RAD CATEGORY 1 negative
== END | disposition home or self-care (01) ==
LOC: RADCTMAIN 08:17
PROVIDERS: ATTEND Internal Medicine
DX: Z12.2 Encounter for screening for malignant neoplasm of respiratory organs (principal); F17.210 Nicotine dependence, cigarettes, uncomplicated
CPT/HCPCS: 71271

== ENCOUNTER 2024-08-28 11:00 | Day surgery (SDC) | payer MEDICARE, BC ==
[2024-08-26 11:59] VITALS: BMI 22.3
[~2024-08-28 11:00] MED LIST changes: -LACTATED RINGERS 1,000 ML IV SCH
[2024-08-28 12:35] VITALS: TEMP 97
[2024-08-28] MEDS: LACTATED RINGERS 1,000 ML IV SCH (12:39)
[2024-08-28] MEDS ORDERED: LIDOCAINE 1% INJ 10MG/ML (20 ML MDV) ONE (12:44)
[2024-08-28] MEDS ORDERED: PROPOFOL 10 MG/ML 20 ML VIAL IV ONE (12:44)
--- NOTE | 2024-08-28 13:08 | P.PCN ---
Date of Procedure: 08/28/24 Procedure(s) Performed: BRIEF HISTORY: Patient is a 68-year-old, pleasant, white female scheduled an upper endoscopy as a part evaluation of intermittent dysphagia to solids for the last 2 years duration.. PROCEDURE PERFORMED: Esophagogastroduodenoscopy with biopsy and dilation. PREOPERATIVE DIAGNOSIS: Intermittent dysphagia to solids of 2 years duration. IV sedation per anesthesia. PROCEDURE: After informed consent was obtained, the patient was brought into the endoscopy unit. IV sedation was administered by Anesthesia under continuous monitoring. Initially the Olympus GIF-140 video endoscope was inserted into the mouth. Esophagus intubated without any difficulty. It was gradually advanced into the stomach and duodenum and carefully examined. The bulb and the second part of the duodenum appeared normal. The scope at this time was withdrawn to the stomach, adequately insufflated with air, and upon careful examination, mucosa of the antrum, body, diffuse gastritis and biopsies were done from this area. Mucosa of the cardia and the fundus appeared normal. The scope was then withdrawn into the esophagus. The GE junction was located at 39 cm from the incisors. Small hiatal hernia noted. There was a widely patent distal esophageal Schatzki's ring identified that was dilated with 20 mm TTS balloon for 30 seconds. The esophagus appeared normal. There were no erosions or ulcerations seen, biopsies were done from the mid and distal esophagus and the patient tolerated the procedure well. IMPRESSION: 1. Distal esophageal Schatzki's ring status post balloon dilation using 20 mm TTS balloon. 2. Small hiatal hernia 3. Mild diffuse gastritis. RECOMMENDATIONS: The findings of this examination were discussed with the patient as well as her family. She was advised to follow-up with the biopsy results. She will be on a liquid diet for 2 hours. Follow-up in the office in 6 weeks.
[2024-08-28 13:38] VITALS: BP 143/87; PULSE 67; RESP 16
[2024-08-28] MEDS: SODIUM CHLORIDE 0.9% 1,000 ML IV ONE (13:44)
--- NOTE | 2024-08-28 15:39 | P.TEE ---
Description of Procedure(s): Procedure performed: Transesophageal Echocardiogram with color flow doppler, pulsed wave doppler and continuous wave doppler Moderate conscious sedation: Moderate conscious sedation was supplied by anesthesia at the same time as EGD Complications: none Indications: Aortic regurgitation PROCEDURE: After the risks, benefits and alternatives of the above mentioned procedure was explained in detail with the patient, informed consent was obtained. Patient was brought to the lab in a fasting state. Patient was given IV Versed and Fentanyl for sedation. The throat was sprayed with Hurricane to anesthetize the throat. A lubricated Omni probe was then introduced into the esophagus and stomach and multiple views were obtained. 2D echo with color flow doppler, pulsed wave doppler and continuous wave doppler was utilized. Agitated saline bubbles were injected to assess for any intra-atrial shunt. The probe was then removed. Patient tolerated the procedure well. Patient was transferred to the post procedure area in stable and satisfactory condition. FINDINGS: 1. The aortic valve is tricuspid with moderate to severe aortic regurgitation with these radius of 0.7 cm with Nyquist of 40, vena contracta of 0.3 cm, no diastolic flow reversible of descending aorta consistent with more moderate aortic regurgitation. If still clinical concern of severe aortic regurgitation may consider cardiac MRI. 2. The mitral valve appears be normal with mild regurgitation. 3. Tricuspid valve appears to be normal with mild tricuspid regurgitation. 4. There is + bubble study consistent with PFO. 5. Left atrial appendage is free of clot. 6. Left ventricular EF 50-55%
== END 2024-08-28 13:59 | disposition home or self-care (01) ==
LOC: ORWHC2ENDO 11:00
PROVIDERS: ATTEND Internal Medicine Gastroenterology
DX: K22.2 Esophageal obstruction (principal); K29.50 Unspecified chronic gastritis without bleeding; K44.9 Diaphragmatic hernia without obstruction or gangrene; K20.90 Esophagitis, unspecified without bleeding; I08.3 Combined rheumatic disorders of mitral, aortic and tricuspid valves; Z79.82 Long term (current) use of aspirin; Z79.02 Long term (current) use of antithrombotics/antiplatelets; Z79.899 Other long term (current) drug therapy
CPT/HCPCS: 93312; 93320; 93325; 88305; 43239; 43249; J2003; J2704; C1726

== ENCOUNTER 2024-09-17 14:29 | Emergency (ER) | payer MEDICARE, BC ==
[2024-09-17 14:46] VITALS: TEMP 98.4
--- NOTE | 2024-09-17 15:15 | ED ---
General Adult HPI - General Chief complaint: Neuro Symptoms/Deficit Stated complaint: Sin Time Seen by Provider: 09/17/24 15:05 Source: patient, family Mode of arrival: ambulatory Limitations: no limitations - History of Present Illness Initial comments: Dictation was produced using [employer]unn dictation software. please excuse any grammatical, word or spelling errors. Chief Complaint: 68-year-old female history of seizure and brain aneurysm status post repair presents to the ER for concerns of brain bleed History of Present Illness: Patient 68-year-old female she has a history of seizure disorder. She takes seizure medications. She does not know exactly what seizure medicine she takes. States that she called her neurologist today because she believes she had 2 seizures. Within the last 3 days. States that since 2 AM she had a headache. Denies that this is the worst headache of her life. Patient unable to comment on if the pain was thunderclap because she states that she does not have good memory whenever she has seizures. States that the headache is sharp to the left side of her brain. She called her neurologist and the neurologist said to come to the ER to get a CAT scan to rule out a brain bleed. She denies any neck stiffness. No extremity symptoms. The ROS documented in this emergency department record has been reviewed and confirmed by me. Those systems with pertinent positive or negative responses have been documented in the HPI. All other systems are other negative and/or noncontributory. - Related Data Home Medications Medication Instructions Recorded Confirmed Folic Acid 1 mg PO DAILY 06/14/21 09/17/24 Levothyroxine Sodium [Synthroid] 88 mcg PO DAILY 06/14/21 09/17/24 OXcarbazepine [Trileptal] 600 mg PO BID 04/07/22 09/17/24 carvediloL [Coreg] 3.125 mg PO BID 04/07/22 09/17/24 Cholecalciferol [Vitamin D3 (25 50 mcg PO DAILY 08/26/24 09/17/24 Mcg = 1000 Iu)] Ezetimibe [Zetia] 10 mg PO DAILY 08/26/24 09/17/24 Inulin/Chromium Picolinate [Fiber 1 tab PO DAILY 08/26/24 09/17/24 Gummies Chew] Multivit with Calcium,Iron,Min 1 tab PO DAILY 08/26/24 09/17/24 [Women's Multivitamin] Rosuvastatin Calcium 40 mg PO DAILY 08/26/24 09/17/24 Sacubitril/Valsartan [Entresto 97 1 tab PO BID 08/26/24 09/17/24 mg-103 mg Tablet] amLODIPine [Norvasc] 2.5 mg PO DAILY 08/26/24 09/17/24 Albuterol Inhaler [Ventolin Hfa 2 puff INHALATION RT-Q4H PRN 09/17/24 09/17/24 Inhaler] Divalproex ER [Depakote ER] 500 mg PO BID 09/17/24 09/17/24 Sertraline [Zoloft] 100 mg PO DAILY 09/17/24 09/17/24 Previous Rx's Medication Instructions Recorded Clopidogrel [Plavix] 75 mg PO DAILY #30 tab 04/10/22 Allergies Allergy/AdvReac Type Severity Reaction Status Date / Time prednisone Allergy Swelling Verified 09/17/24 17:41 Review of Systems ROS Statement: Those systems with pertinent positive or pertinent negative responses have been documented in the HPI. ROS Other: All systems not noted in ROS Statement are negative. Past Medical History Past Medical History: Coronary Artery Disease (CAD), Chest Pain / Angina, CVA/TIA, Hyperlipidemia, Hypertension, Myocardial Infarction (SD), Seizure Disorder, Thyroid Disorder Additional Past Medical History / Comment(s): ITP. LAST SEIZURE 02/2023. BRAIN ANEURYSM WITH COILING. SMALL APICAL ANEURYSM. VALVULAR HEART DISEASE Last Myocardial Infarction Date:: 2007 History of Any Multi-Drug Resistant Organisms: None Reported Past Surgical History: Heart Catheterization With Stent, Hysterectomy Additional Past Surgical History / Comment(s): brain coils Past Anesthesia/Blood Transfusion Reactions: No Reported Reaction Date of Last Stent Placement:: 2007 Past Psychological History: No Psychological Hx Reported Smoking Status: Former smoker Past Alcohol Use History: Occasional Past Drug Use History: Marijuana General Exam - General Exam Comments Initial Comments: PHYSICAL EXAM: General Impression: Alert and oriented x3, not in acute distress HEENT: Normocephalic atraumatic, extra-ocular movements intact, pupils equal and reactive to light bilaterally, mucous membranes moist. Cardiovascular: Heart regular rate and rhythm Chest: Able to complete full sentences, no retractions, no tachypnea Abdomen: abdomen soft, non-tender, non-distended, no organomegaly Musculoskeletal: Pulses present and equal in all extremities, no peripheral edema Motor: no focal deficits noted Neurological: CN II-XII grossly intact, no focal motor or sensory deficits noted Skin: Intact with no visualized rashes Psych: Normal affect and mood Limitations: no limitations Course Vital Signs 09/17/24 09/17/24 14:42 16:50 Temperature 98.4 F Pulse Rate 64 60 Respiratory 18 18 Rate Blood Pressure 149/98 154/80 O2 Sat by Pulse 97 95 Oximetry - Reevaluation(s) Reevaluation #1: 09/17/24 16:40 CT brain is negative for acute intracranial processes. No evidence of blood. Patient denies that her headache is worst headache of her life or that it is thunderclap in nature. At this point no suspicion for subarachnoid bleed. Patient given headache cocktail. EKG Findings - EKG Comments: EKG Findings:: My EKG interpretation: Ventricular rate 56, sinus bradycardia,. 162, cures 97, QTc 422. No [place] prolongation, no QTC prolongation, no ST or T-wave changes noted. Overall, this EKG is unremarkable Medical Decision Making - Medical Decision Making Was pt. sent in by a medical professional or institution (, PA, MELT SUPERINTENDANT, urgent care, hospital, or correction...) When possible be specific @ -No Did you speak to anyone other than the patient for history (EMS, parent, family, police, friend...)? What history was obtained from this source @ -No Did you review nursing and triage notes (agree or disagree)? Why? @ -I reviewed and agree with nursing and triage notes Were old charts reviewed (outside hosp., previous admission, EMS record, old EKG, old radiological studies, urgent care reports/EKG's, correction records)? Report findings @ -No old charts were reviewed Differential Diagnosis (chest pain, altered mental status, abdominal pain women, abdominal pain men, vaginal bleeding, musculoskeletal, weakness, fever, dyspnea, syncope, headache, dizziness, GI bleed, back pain, seizure, CVA, palpatations, mental health)? @ -Differential Headache: Migraine, tension, cluster, carbon monoxide, central venous thrombosis, pension karma temporal arteritis, acute closure glaucoma, intercranial hemorrhage, mastoiditis, sinusitis, head injury, this is not meant to be an all-inclusive list. EKG interpreted by me (3pts min.). @ -See above X-rays interpreted by me (1pt min.). @ -None done CT interpreted by me (1pt min.). @ -CT brain shows no acute process. CT angiography shows no vessel occlusion or aneurysms U/S interpreted by me (1pt. min.). @ -None done What testing was considered but not performed or refused? (CT, X-rays, U/S, labs)? Why? @ -None What meds were considered but not given or refused? Why? @ -None Was smoking cessation discussed for >3mins.? @ -No Were there social determinants of health that impacted care today? How? (Homelessness, low income, unemployed, alcoholism, drug addiction, transportation, low edu. Level, literacy, decrease access to med. care, fpc, rehab)? @ -No Was there de-escalation of care discussed even if they declined (Discuss DNR or withdrawal of care, Hospice)? DNR status @ -No What co-morbidities impacted this encounter? (DM, HTN, Smoking, COPD, CAD, Cancer, CVA, ARF, Chemo, Hep., AIDS, mental health diagnosis, sleep apnea, morbid obesity)? @ -None Was patient admitted / discharged? Hospital course, mention meds given and route, prescriptions, significant lab abnormalities, going to OR and other pertinent info. @ -68-year-old female presents emergency department for headache. States that this headache is not the worst headache of her life. She denies any thunderclap in nature. at the bedside states that she usually feels a little headache after she has a seizure. She was told by her neurologist to come to the ER to get a CT scan of her brain to rule out bleed. Patient given headache cocktail with improvement of symptoms. Imaging studies are negative. Patient states she has almost complete resolution of her headache symptoms. Clinically no concern for subarachnoid hemorrhage given history of present illness. Patient agreeable for discharge. Return precautions discussed. Did you discuss the management of the patient with other professionals (professionals i.e. , PA, MELT SUPERINTENDANT, lab, RT, psych nurse, social work therapist, emergency response technician, teacher, placement officer, residential case manager)? Give summary @ -No Was critical care preformed (if so, how long)? @ -No Undiagnosed new problem with uncertain prognosis? @ -No Drug Therapy requiring intensive monitoring for toxicity (Heparin, Nitro, Insulin, Cardizem)? @ -No Were any procedures done? @ -No Diagnosis/symptom? Acute, or Chronic, or Acute on Chronic? Uncomplicated (without systemic symptoms) or Complicated (systemic symptoms)? @ -Headache Side effects of treatment? @ -No Exacerbation, Progression, or Severe Exacerbation? @ -No Poses a threat to life or bodily function? How? (Chest pain, USA, SD, pneumonia, PE, COPD, DKA, ARF, appy, cholecystitis, CVA, Diverticulitis, Homicidal, Suicidal, threat to staff... and all critical care pts) @ -No - Lab Data Result diagrams: 09/17/24 15:42 09/17/24 15:42 Lab Results 09/17/24 09/17/24 09/17/24 Range/Units 15:42 15:42 15:42 WBC 5.8 (3.8-10.6) k/uL RBC 4.22 (3.80-5.40) m/uL Hgb 13.0 (11.4-16.0) gm/dL Hct 40.9 (34.0-46.0) % MCV 97.0 (80.0-100.0) fL MCH 30.8 (25.0-35.0) pg MCHC 31.8 (31.0-37.0) g/dL RDW 13.0 (11.5-15.5) % Plt Count 208 (150-450) k/uL MPV 6.6 Neutrophils % 64 % Lymphocytes % 26 % Monocytes % 6 % Eosinophils % 2 % Basophils % 0 % Neutrophils # 3.7 (1.3-7.7) k/uL Lymphocytes # 1.5 (1.0-4.8) k/uL Monocytes # 0.4 (0-1.0) k/uL Eosinophils # 0.1 (0-0.7) k/uL Basophils # 0.0 (0-0.2) k/uL PT 11.0 (10.0-12.5) sec INR 1.0 (<1.2) APTT 28.6 (22.0-30.0) sec Sodium 139 (137-145) mmol/L Potassium 4.2 (3.5-5.1) mmol/L Chloride 105 (98-107) mmol/L Carbon Dioxide 29 (22-30) mmol/L Anion Gap 5 mmol/L BUN 19 H (7-17) mg/dL Creatinine 0.99 (0.52-1.04) mg/dL Est GFR (CKD-EPI)AfAm 69 (>60 ml/min/1.73 sqM) Est GFR (CKD-EPI)NonAf 60 (>60 ml/min/1.73 sqM) Glucose 98 (74-99) mg/dL Calcium 9.3 (8.4-10.2) mg/dL Disposition Clinical Impression: Headache Disposition: HOME SELF-CARE Condition: Good Instructions (If sedation given, give patient instructions): Acute Headache (ED) Is patient prescribed a controlled substance at d/c from ED?: No Referrals: Charley Woody MD [Primary Care Provider] - 1-2 days Time of Disposition: 18:43
[2024-09-17 15:49] LABS: Basophils % (A) 0 %; Eosinophils # (A) 0.1 k/uL (0-0.7); Eosinophils % (A) 2 %; HCT 40.9 % (34.0-46.0); Lymphocytes # (A) 1.5 k/uL (1.0-4.8); Lymphocytes % (A) 26 %; MCH 30.8 pg (25.0-35.0); MCHC 31.8 g/dL (31.0-37.0); Mean Platelet Volume 6.6; Monocytes # (A) 0.4 k/uL (0-1.0); Monocytes % (A) 6 %; Neutrophils # (A) 3.7 k/uL (1.3-7.7); Neutrophils % (A) 64 %; Platelet Count 208 k/uL (150-450); RBC 4.22 m/uL (3.80-5.40); WBC 5.8 k/uL (3.8-10.6)
[2024-09-17 15:59] LABS: African American GFR (CKD) 69 (>60 ml/min/1.73 sqM); Anion Gap 5 mmol/L; Blood Urea Nitrogen 19 mg/dL (7-17); Calcium 9.3 mg/dL (8.4-10.2); Carbon Dioxide 29 mmol/L (22-30); Chloride 105 mmol/L (98-107); Glucose 98 mg/dL (74-99); Non-African American GFR(CKD) 60 (>60 ml/min/1.73 sqM); Potassium 4.2 mmol/L (3.5-5.1); Sodium 139 mmol/L (137-145)
--- NOTE | 2024-09-17 16:06 | CT ---
EXAMINATION TYPE: CT brain wo con DATE OF EXAM: 09/17/2024 3:56 PM COMPARISON: 02/03/2023 CLINICAL INDICATION: Female, 68 years old with history of headache, history of brain aneurysm, seizur e/dizzy TECHNIQUE: CT of the brain is performed utilizing 3 mm thick sections through the posterior fossa and 3 mm thick sections through the remaining calvarium. Study is performed within 24 hours of arrival to the hospital. Contrast used: mL of , (none if empty) CT DLP: combined 1414.4 mGycm, Automated exposure control for dose reduction was used. FINDINGS: No abnormal hyperdensity is present to suggest an acute intracranial hemorrhage. No mass lesion is evident. No acute infarcts are evident. Mild centrum semiovale hypodensity is present on the left likely on th e basis of chronic white matter ischemic changes. Ventricles and sulci are appropriate for the patient age. Metallic artifact is present with a aneurysm clip within the suprasellar region Paranasal sinuses and mastoid air cells within the [id number] are clear. IMPRESSION: 1. No acute intracranial process. Follow up can be performed as clinically indicated. 2. Chronic appearing periventricular white matter ischemic-type changes greater on the left stable fr om comparison [facility], , 09/17/2024 4:04 PM
[2024-09-17 16:10] LABS: Partial Thromboplastin Time 28.6 sec (22.0-30.0)
--- NOTE | 2024-09-17 16:43 | CT ---
EXAMINATION TYPE: CT angio head neck DATE OF EXAM: 09/17/2024 4:16 PM COMPARISON: None. CLINICAL INDICATION: Female, 68 years old with history of headache, history of brain aneurysm, seizur e/headache/dizzy TECHNIQUE: CTA scan is performed with axial images are obtained, coronal and sagittal reformatted benjie ges are reviewed. 3-D reconstructed images are created on an independent workstation and reviewed. [facility] images are reviewed. NASCET criteria was used in interpretation of this exam? Contrast used:65ml mL of Isovue 370 with IV Contrast, (none if empty) Oral contrast used: (none if empty) CT DLP: 1414.4 mGycm, Automated exposure control for dose reduction was used. FINDINGS: Carotid/Vascular Structures: There is a 3 vessel arch. Common carotid arteries bifurcate into internal and external carotid arteries without significant keely w limiting stenosis. Carotid bifurcation calcifications are present without stenosis. Vertebral arteries are codominant. Internal carotid arteries and vertebral arteries are patent to the skull base. Cervical of Tran: There appears to be metallic scatter artifact from a aneurysm clip in the suprase llar cistern limiting portions of the evaluation. Vertebral basilar system appears normal. Posterior cerebral vasculature is unremarkable. Internal carotid arteries bifurcate normally into A1 and M1 seg ments. A2 segments are normal. The anterior communicating artery is present. There is a punctate contrast between the left and right A1 segments distally prior to the communicating artery. Is just above the aneurysm clip. A tiny resi dual aneurysm considered. Example image 5 to 6 minutes 39. The right posterior communicating artery is absent. The left posterior communicating artery is absent. IMPRESSION: 1. No flow-limiting stenosis bilateral carotid bifurcations. 2. There is a punctate contrast collections between the distal left and right A1 segments on the imag e above the aneurysm clip. Tiny residual aneurysm is not excluded. 3. [place] of Tran otherwise appears within normal limits. [facility], , 09/17/2024 4:40 PM
[2024-09-17] MEDS: SODIUM CHLORIDE 0.9% 1,000 ML IV STA (16:47)
[2024-09-17] MEDS: ONDANSETRON 4 MG/2 ML VIAL IVP STA (16:47)
[2024-09-17] MEDS: KETOROLAC 15 MG/ML 1 ML VIAL IVP STA (16:49)
[2024-09-17] MEDS: diphenhydrAMINE 50 MG/ML 1 ML VIAL IVP STA (16:50)
[2024-09-17 19:05] VITALS: BP 141/79; PULSE 86; RESP 20
== END 2024-09-17 19:05 | disposition home or self-care (01) ==
LOC: EC 14:29
DX: R51.9 Headache, unspecified (principal); Z87.891 Personal history of nicotine dependence; Z88.8 Allergy status to other drugs, medicaments and biological substances; Z86.73 Personal history of transient ischemic attack (TIA), and cerebral infarction without residual deficits
CPT/HCPCS: 36415; 93005; 80165; 80048; 85025; 85610; 85730; 70496; 70450; 70498; 99284; 96374; 96375 ×2; 96361; J1200; J2405; J1885; Q9967

== ENCOUNTER 2024-09-22 12:29 | Day surgery (SDC) | payer MEDICARE, BC ==
[2024-09-18 14:10] VITALS: BMI 23.4
[2024-09-22 13:06] VITALS: TEMP 97.3
[2024-09-22] MEDS: LACTATED RINGERS 1,000 ML IV SCH (13:12)
[2024-09-22] MEDS: IV FLUID CONTINUATION 1,000 ML IV ONE (13:12)
[2024-09-22] MEDS ORDERED: PROPOFOL 10 MG/ML 20 ML VIAL IV ONE (13:25)
[2024-09-22 14:41] VITALS: BP 136/71; PULSE 57; RESP 16
--- NOTE | 2024-09-26 15:05 | P.OP ---
Date of Procedure: 09/22/24 Preoperative Diagnosis: GI bleeding Postoperative Diagnosis: ascending colon poyp Procedure(s) Performed: colonoscopy Anesthesia: local Surgeon: Jose Noel Pathology: other (ascending colon polyp) Condition: stable Disposition: PACU Indications for Procedure: gi bleed Operative Findings: ascending colon polyp, no signs of active bleeding Description of Procedure: The patient was brought to the operative suite where a time out was performed and everyone agreed with the information recited. The patient was placed in left lateral decubitus position and anesthetized by the anesthesia team. Next an adult sized olymposcope was used to traverse the anus, sigmoid colon , descending, transverse and ascending colon to the cecum.This identified the appendiceal orfice and the conversion of the tenia. The scope was slowly retracted and the ascending colon yielded a small polyp in the mid portion. This was removed using hot snare. The scope was further retracted looking at the mucosa in a circumferential fashion. there was no polyps found in the t ransverse, descending, sigmoid or rectum. There was one large heorrhoid bundle with no signs of bleeding. The scope was retracted without difficulty. Scope time greater than 7 minutes. Patient tolerated the procedure well and was transported to pacu in stable condition
== END 2024-09-22 14:55 | disposition home or self-care (01) ==
LOC: ORWHC2ENDO 12:29
PROVIDERS: ATTEND Surgery
DX: K63.5 Polyp of colon (principal); K92.2 Gastrointestinal hemorrhage, unspecified; I10 Essential (primary) hypertension; E78.5 Hyperlipidemia, unspecified; I25.2 Old myocardial infarction; I25.119 Atherosclerotic heart disease of native coronary artery with unspecified angina pectoris; E07.9 Disorder of thyroid, unspecified; D69.3 Immune thrombocytopenic purpura; G40.89 Other seizures; I67.1 Cerebral aneurysm, nonruptured; Z95.828 Presence of other vascular implants and grafts; Z87.891 Personal history of nicotine dependence; Z90.89 Acquired absence of other organs; Z88.8 Allergy status to other drugs, medicaments and biological substances; Z79.890 Hormone replacement therapy; Z79.899 Other long term (current) drug therapy
CPT/HCPCS: 88305; 45385; J2704

== ENCOUNTER 2024-10-20 12:59 | Day surgery (SDC) | payer MEDICARE, BC ==
[~2024-10-20 12:59] MED LIST changes: -LIDOCAINE 1% (10MG/ML) FOR IV START INTRADERMA PRN; +Pre Op ABX Message 1 EACH MISC MISCELLANE ONE
[2024-10-20] MEDS ORDERED: MIDAZOLAM 2 MG/2 ML VIAL IV PRN (13:09)
[2024-10-20] MEDS ORDERED: fentaNYL (PF) 50 MCG/ML 2 ML AMP IVP PRN (13:09)
[2024-10-20] MEDS ORDERED: HYDROmorphone 0.5 MG/0.5 ML SYRINGE IVP PRN (13:09)
[2024-10-20 13:30] VITALS: RESP 16
[2024-10-20] MEDS: LIDOCAINE 1% (10MG/ML) FOR IV START INTRADERMA PRN (13:35)
[2024-10-20] MEDS: LACTATED RINGERS 1,000 ML IV SCH (13:35)
[2024-10-20] MEDS: IV FLUID CONTINUATION 1,000 ML IV ONE ×2 (13:35→14:27)
[2024-10-20] MEDS: ONDANSETRON 4 MG/2 ML VIAL IVP ONE (13:40)
[2024-10-20] MEDS ORDERED: MIDAZOLAM 2 MG/2 ML VIAL ONE (14:23)
[2024-10-20] MEDS ORDERED: PROPOFOL 10 MG/ML 20 ML VIAL IV ONE (14:23)
[2024-10-20] MEDS ORDERED: ePHEDrine 50 MG/ML 1 ML VIAL ONE (14:23)
[2024-10-20] MEDS ORDERED: SUCCINYLCHOLINE CHLORIDE 200 MG/10 ML VIAL IV ONE (14:23)
[2024-10-20] MEDS ORDERED: fentaNYL (PF) 50 MCG/ML 2 ML AMP ONE (14:23)
[2024-10-20] MEDS ORDERED: LIDOCAINE 1% INJ 10MG/ML (20 ML MDV) ONE (14:23)
[2024-10-20] MEDS: HEPARIN SODIUM,PORCINE 5,000 UNIT/ML 1 ML VIAL SQ STA (14:26)
[2024-10-20] MEDS: LIDOCAINE 2% URO-JET JELLY 5 ML KIT MISCELLANE ONE (15:00)
[2024-10-20] MEDS: LACTATED RINGERS 1,000 ML IV ONE (15:08)
[2024-10-20 15:27] VITALS: TEMP 97
[2024-10-20 16:23] VITALS: PULSE 62
--- NOTE | 2024-10-20 16:36 | P.OP ---
Date of Procedure: 10/20/24 Preoperative Diagnosis: Hemorrhoids Postoperative Diagnosis: Internal/external hemorrhoids Procedure(s) Performed: Excision of internal/external hemorrhoids at the left lateral, right anterior, right posterior lower bundles Anesthesia: CHARLEENA Surgeon: Jose Noel Estimated Blood Loss (ml): 5 Pathology: other (Hemorrhoids) Condition: stable Disposition: PACU Indications for Procedure: Hemorrhoids Operative Findings: All 3 hemorrhoidal bundles appeared to be recent stigmata of bleeding with mild thrombosis Description of Procedure: [facility] operative suite where she was cleaned and draped in sterile fashion and a timeout was performed. Patient was placed in deep lithotomy. A rectal exam was done using a speculum. There were multiple hemorrhoids with recent stigmata of bleeding the left lateral right anterior right posterior positions Allis clamp was then used to grasp this hemorrhoid and ligated using the LigaSure device this was repeated the left lateral right anterior and right posterior bundles. A hemostatic timeout was performed and no bleeding was observed lidocaine jelly soaked thrombin foam gauze was placed inside the rectum/anus. All 3 hemorrhoids were a combination of an internal/external. The patient was then transported to PACU in stable condition thank you
[2024-10-20 16:40] VITALS: BP 165/75
== END 2024-10-20 17:15 | disposition home or self-care (01) ==
LOC: OR 12:59
PROVIDERS: ATTEND Surgery
DX: K64.4 Residual hemorrhoidal skin tags (principal); K64.8 Other hemorrhoids; I25.10 Atherosclerotic heart disease of native coronary artery without angina pectoris; I10 Essential (primary) hypertension; E78.5 Hyperlipidemia, unspecified; E07.9 Disorder of thyroid, unspecified; G40.909 Epilepsy, unspecified, not intractable, without status epilepticus; I67.1 Cerebral aneurysm, nonruptured; F17.200 Nicotine dependence, unspecified, uncomplicated; Z95.5 Presence of coronary angioplasty implant and graft; Z79.899 Other long term (current) drug therapy; Z79.890 Hormone replacement therapy; Z90.710 Acquired absence of both cervix and uterus
CPT/HCPCS: 46260; 88304; J2250; J0330; J1644; J2405; J2003; J3010; J2704

== ENCOUNTER → 2024-11-25 | Outpatient (CLI) | payer MEDICARE, BC ==
--- NOTE | 2024-11-25 09:50 | MM ---
Reason for Exam: Screening (asymptomatic). Last mammogram was performed 2 year(s) and 4 month(s) ago. Patient History: Menarche at age 14. First Full-Term at age 19. Hysterectomy at age 27. Postmenopausal. Estrogen, starting at age 27 for 2 years. Sister had breast cancer. Risk Values: Skyla 5 year model risk: 3.1%. NCI Lifetime model risk: 10.5%. Prior Study Comparison: 07/27/2022 Bilateral MG 3D screening mammo w/cad, [facility]. Tissue Density: There are scattered areas of fibroglandular density. Findings: Analyzed By CAD. There is no suspicious group of microcalcifications or new suspicious mass in either breast. Overall Assessment: Negative, BI-RAD 1 Management: Screening Mammogram of both breasts in 1 year. See note below in regards to patient's increased 5 year Skyla score. Patient should continue monthly self-breast exams. A clinical breast exam by your physician is recommended on an annual basis. This exam should not preclude additional follow-up of suspicious palpable abnormalities. Note on Skyla scores and lifetime risk: 1. A Skyla score greater than 3% is considered moderate risk. If this is the case, consider specialist referral to assess eligibility for a risk reducing agent. 2. If overall lifetime risk for the development of breast cancer is 20% or higher, the patient may qualify for future screening with alternating mammogram and breast MRI. [facility], , 11/25/2024 9:48 AM. Electronically signed and approved by: Davian Pierce M.D. Radiologist
== END | disposition home or self-care (01) ==
LOC: RADMAMWWP 08:41
PROVIDERS: ATTEND Family Medicine
DX: Z12.31 Encounter for screening mammogram for malignant neoplasm of breast (principal); Z78.0 Asymptomatic menopausal state; Z80.3 Family history of malignant neoplasm of breast; R92.323 Mammographic fibroglandular density, bilateral breasts
CPT/HCPCS: 77063; 77067

== ENCOUNTER 2025-01-18 17:06 | Emergency (ER) | payer MEDICARE, BC ==
[2025-01-18 17:20] VITALS: PULSE 60; TEMP 97.4
--- NOTE | 2025-01-18 17:38 | ED ---
General Adult HPI - General Chief complaint: Dizziness Stated complaint: Fall on thinner-Head injury Time Seen by Provider: 01/18/25 17:15 Source: patient, family, RN notes reviewed Mode of arrival: ambulatory Limitations: no limitations - History of Present Illness Initial comments: Patient is a 69-year-old female present to the emergency department after fall. Patient was driving and started having some blurry vision. Patient got to her destination and got out of the car. Patient felt very dizzy and fell. Patient states the dizziness did make her fall. Patient states this was a spinning type sensation. Patient did strike her face. Patient has nose discomfort. Patient did not lose consciousness. Patient does take Plavix. Patient also hurt her left elbow. No other area of injury or concern. Patient still has some blurry vision and 1-1/2 vision, not double vision. Patient states she actually has been dealing with this for several months and does have an appointment to follow-up with her neurologist soon. Patient does have a neurologist secondary to history of seizures. - Related Data Home Medications Medication Instructions Recorded Confirmed Folic Acid 1 mg PO DAILY 06/14/21 01/18/25 Levothyroxine Sodium [Synthroid] 88 mcg PO DAILY 06/14/21 01/18/25 OXcarbazepine [Trileptal] 600 mg PO BID 04/07/22 01/18/25 Rosuvastatin Calcium 40 mg PO DAILY 08/26/24 01/18/25 Sacubitril/Valsartan [Entresto 97 1 tab PO BID 08/26/24 01/18/25 mg-103 mg Tablet] amLODIPine [Norvasc] 2.5 mg PO BID 08/26/24 01/18/25 Divalproex ER [Depakote ER] 500 mg PO BID 09/17/24 01/18/25 Aspirin [Adult Low Dose Aspirin EC] 81 mg PO DAILY 09/18/24 01/18/25 Fluticasone Nasal [place] [Flonase 2 spr EA NOSTRIL HS 01/18/25 01/18/25 Nasal [place]] Furosemide [Lasix] 20 mg PO BID 01/18/25 01/18/25 carvediloL [Coreg] 6.25 mg PO BID 01/18/25 01/18/25 Previous Rx's Medication Instructions Recorded Clopidogrel [Plavix] 75 mg PO DAILY #30 tab 04/10/22 Allergies Allergy/AdvReac Type Severity Reaction Status Date / Time prednisone Allergy Swelling & Verified 01/18/25 18:02 joint pain Review of Systems ROS Statement: Those systems with pertinent positive or pertinent negative responses have been documented in the HPI. ROS Other: All systems not noted in ROS Statement are negative. Constitutional: Denies: fever Eyes: Reports: vision change ENT: Denies: ear pain Respiratory: Denies: cough Cardiovascular: Denies: chest pain Endocrine: Denies: fatigue Gastrointestinal: Denies: abdominal pain Musculoskeletal: Reports: as per HPI Neurological: Denies: headache Past Medical History Past Medical History: Coronary Artery Disease (CAD), Chest Pain / Angina, CVA/TIA, Hyperlipidemia, Hypertension, Myocardial Infarction (NC), Seizure Disorder, Thyroid Disorder Additional Past Medical History / Comment(s): ITP. LAST SEIZURE 02/2023. BRAIN ANEURYSM WITH COILING. SMALL APICAL ANEURYSM. VALVULAR HEART DISEASE Last Myocardial Infarction Date:: 2007 History of Any Multi-Drug Resistant Organisms: None Reported Past Surgical History: Heart Catheterization With Stent, Hysterectomy Additional Past Surgical History / Comment(s): brain coils Past Anesthesia/Blood Transfusion Reactions: No Reported Reaction Date of Last Stent Placement:: 2007 Past Psychological History: No Psychological Hx Reported Smoking Status: Former smoker Past Alcohol Use History: None Reported Past Drug Use History: None Reported - Past Family History Sister(s) Family Medical History: Cancer, Hypertension Additional Family Medical History / Comment(s): breast ca General Exam Limitations: no limitations General appearance: alert Head exam: Present: normocephalic Eye exam: Present: normal appearance, PERRL, EOMI Expanded Pupils: Regular, Round: Bilateral Posterior chamber: Normal Inspection: Bilateral ENT exam: Present: normal oropharynx, other (Nose generally with swelling and tenderness. Mild maxillary tenderness) Neck exam: Present: normal inspection. Absent: tenderness Respiratory exam: Present: normal lung sounds bilaterally Cardiovascular Exam: Present: regular rate, normal rhythm GI/Abdominal exam: Present: soft. Absent: tenderness Extremities exam: Present: normal inspection, full ROM. Absent: tenderness Neurological exam: Present: alert, oriented X3, CN II-XII intact. Absent: motor sensory deficit Expanded Neurological exam: Present: protecting the airway Speech: Present: fluid speech Cranial nerves: EOM's Intact: Normal, Facial Sensation: Normal Sensory exam: Upper Extremity Light Touch: Normal, Lower Extremity Light Touch: Normal Motor strength exam: RUE: 5, LUE: 5, RLE: 5, LLE: 5 Eye Response: (4) open spontaneously Motor Response: (6) obeys commands Verbal Response: (5) oriented Psychiatric exam: Present: normal affect, normal mood Skin exam: Present: normal color Course Vital Signs 01/18/25 01/18/25 17:14 18:20 Temperature 97.4 F L Pulse Rate 60 60 Respiratory 17 20 Rate Blood Pressure 156/80 153/78 O2 Sat by Pulse 98 97 Oximetry EKG Findings - EKG Results: EKG: interpreted by ERMD (LVH criteria. PVC present.), sinus rhythm, normal axis, normal ST/T Medical Decision Making - Medical Decision Making Patient reevaluated and feeling better. Patient believes her vision is getting better. Patient confirms she has had all these visual changes several times previously over the past few months and are not brand-new today. Was pt. sent in by a medical professional or institution (Dr. PA, DIRECTOR OF PARTNER MARKETING, urgent care, hospital, or skilled nursing...) When possible be specific @ -No Did you speak to anyone other than the patient for history (EMS, parent, family, police, friend...)? What history was obtained from this source @ - is present helps provide history including patient's past medical history Did you review nursing and triage notes (agree or disagree)? Why? @ -I reviewed and agree with nursing and triage notes Were old charts reviewed (outside hosp., previous admission, EMS record, old EKG, old radiological studies, urgent care reports/EKG's, skilled nursing records)? Report findings @ -No old charts were reviewed Differential Diagnosis (chest pain, altered mental status, abdominal pain women, abdominal pain men, vaginal bleeding, weakness, fever, dyspnea, syncope, headache, dizziness, GI bleed, back pain, seizure, CVA, palpatations, mental health, musculoskeletal)? @ -Differential Dizziness: Benign paroxysmal positional Vertigo, Meniere's disease, otitis media, acoustic neuroma, vertebrobasilar insufficiency, cerebellar stroke, encephalitis, hypovolemic, arrhythmia, coronary artery syndrome, anemia, this is not meant to be an all-inclusive list EKG interpreted by me (3pts min.). @ -As above X-rays interpreted by me (1pt min.). @ -Left elbow x-ray without evidence of fracture CT interpreted by me (1pt min.). @ -CT brain unremarkable. CT face concerning for nasal fracture U/S interpreted by me (1pt. min.). @ -None done What testing was considered but not performed or refused? (CT, X-rays, U/S, labs)? Why? @ -None What meds were considered but not given or refused? Why? @ -None Did you discuss the management of the patient with other professionals (professionals i.e. , PA, DIRECTOR OF [employer]NER MARKETING, lab, RT, psych nurse, social science teacher, criminal defense lawyer, teacher, air antisubmarine officer, medical case manager)? Give summary @ -No Was smoking cessation discussed for >3mins.? @ -No Was critical care preformed (if so, how long)? @ -No Were there social determinants of health that impacted care today? How? (H omelessness, low income, unemployed, alcoholism, drug addiction, transportation, low edu. Level, literacy, decrease access to med. care, custodial, rehab)? @ -No Was there de-escalation of care discussed even if they declined (Discuss DNR or withdrawal of care, Hospice)? DNR status @ -Discussion with patient and family regarding admission. Patient refuses this. Patient states she is currently symptom-free and has had the symptoms previously. In addition patient has gotten in touch with her neurologist and states she can be seen tomorrow. What co-morbidities impacted this encounter? (DM, HTN, Smoking, COPD, CAD, Cancer, CVA, ARF, Chemo, Hep., AIDS, mental health diagnosis, sleep apnea, morbid obesity)? @ -None Was patient admitted / discharged? Hospital course, mention meds given and route , prescriptions, significant lab abnormalities, going to OR and other pertinent info. @ -Patient presents with episode of dizziness and fall. Patient has nasal fracture otherwise head CT unremarkable for acute abnormality. Patient states she has been having these visual changes for several months occasionally and will be able to see her neurologist tomorrow and refuses to stay. Patient will be discharged and follow-up tomorrow as planned. Undiagnosed new problem with uncertain prognosis? @ -No Drug Therapy requiring intensive monitoring for toxicity (Heparin, Nitro, Insulin, Cardizem)? @ -No Were any procedures done? @ -No Diagnosis/symptom? @ -Dizziness, nasal fracture Acute, or Chronic, or Acute on Chronic? @ -Acute, acute Uncomplicated (without systemic symptoms) or Complicated (systemic symptoms)? @ -Default Side effects of treatment? @ -No Exacerbation, Progression, or Severe Exacerbation? @ -No Poses a threat to life or bodily function? How? (Chest pain, USA, NC, pneumonia, PE, COPD, DKA, ARF, appy, cholecystitis, CVA, Diverticulitis, Homicidal, Suicidal, threat to staff... and all critical care pts) @ -No - Lab Data Result diagrams: 01/18/25 17:41 01/18/25 17:41 Lab Results 01/18/25 01/18/25 01/18/25 Range/Units 17:41 17:41 17:41 WBC 6.2 (3.8-10.6) k/uL RBC 4.42 (3.80-5.40) m/uL Hgb 13.5 (11.4-16.0) gm/dL Hct 42.9 (34.0-46.0) % MCV 97.0 (80.0-100.0) fL MCH 30.6 (25.0-35.0) pg MCHC 31.6 (31.0-37.0) g/dL RDW 13.9 (11.5-15.5) % Plt Count 229 (150-450) k/uL MPV 7.3 Neutrophils % 64 % Lymphocytes % 26 % Monocytes % 7 % Eosinophils % 2 % Basophils % 0 % Neutrophils # 3.9 (1.3-7.7) k/uL Lymphocytes # 1.6 (1.0-4.8) k/uL Monocytes # 0.4 (0-1.0) k/uL Eosinophils # 0.1 (0-0.7) k/uL Basophils # 0.0 (0-0.2) k/uL PT 10.7 (10.0-12.5) sec INR 1.0 (<1.2) APTT 27.7 (22.0-30.0) sec Sodium 139 (137-145) mmol/L Potassium 3.2 L (3.5-5.1) mmol/L Chloride 102 (98-107) mmol/L Carbon Dioxide 30 (22-30) mmol/L Anion Gap 7 mmol/L BUN 21 H (7-17) mg/dL Creatinine 0.86 (0.52-1.04) mg/dL Est GFR (CKD-EPI)AfAm 82 (>60 ml/min/1.73 sqM) Est GFR (CKD-EPI)NonAf 71 (>60 ml/min/1.73 sqM) Glucose 102 H (74-99) mg/dL Plasma Lactic Acid Yehuda (0.7-2.0) mmol/L Calcium 8.9 (8.4-10.2) mg/dL Total Bilirubin 0.4 (0.2-1.3) mg/dL AST 24 (14-36) U/L ALT 13 (4-34) U/L Alkaline Phosphatase 80 (38-126) U/L Total Protein 6.5 (6.3-8.2) g/dL Albumin 3.9 (3.5-5.0) g/dL 01/18/25 Range/Units 17:41 WBC (3.8-10.6) k/uL RBC (3.80-5.40) m/uL Hgb (11.4-16.0) gm/dL Hct (34.0-46.0) % MCV (80.0-100.0) fL MCH (25.0-35.0) pg MCHC (31.0-37.0) g/dL RDW (11.5-15.5) % Plt Count (150-450) k/uL MPV Neutrophils % % Lymphocytes % % Monocytes % % Eosinophils % % Basophils % % Neutrophils # (1.3-7.7) k/uL Lymphocytes # (1.0-4.8) k/uL Monocytes # (0-1.0) k/uL Eosinophils # (0-0.7) k/uL Basophils # (0-0.2) k/uL PT (10.0-12.5) sec INR (<1.2) APTT (22.0-30.0) sec Sodium (137-145) mmol/L Potassium (3.5-5.1) mmol/L Chloride (98-107) mmol/L Carbon Dioxide (22-30) mmol/L Anion Gap mmol/L BUN (7-17) mg/dL Creatinine (0.52-1.04) mg/dL Est GFR (CKD-EPI)AfAm (>60 ml/min/1.73 sqM) Est GFR (CKD-EPI)NonAf (>60 ml/min/1.73 sqM) Glucose (74-99) mg/dL Plasma Lactic Acid Yehuda 1.0 (0.7-2.0) mmol/L Calcium (8.4-10.2) mg/dL Total Bilirubin (0.2-1.3) mg/dL AST (14-36) U/L ALT (4-34) U/L Alkaline Phosphatase (38-126) U/L Total Protein (6.3-8.2) g/dL Albumin (3.5-5.0) g/dL Disposition Clinical Impression: Dizziness, Nasal fracture Disposition: HOME SELF-CARE Condition: Stable Instructions (If sedation given, give patient instructions): Dizziness (ED) Additional Instructions: Please do follow-up with your neurologist tomorrow as planned. Please also follow-up with your primary care physician next 1 or 2 days for recheck. [id number] Antivert if needed. Return for new neurological problems, weakness, confusion, visual changes, uncontrolled dizziness, worsening symptoms or other concerns. Is patient prescribed a controlled substance at d/c from ED?: No Referrals: Charley Woody MD [Primary Care Provider] - 1-2 days Time of Disposition: 18:54
--- NOTE | 2025-01-18 17:50 | XR ---
EXAMINATION TYPE: XR elbow complete LT DATE OF EXAM: 01/18/2025 5:44 PM COMPARISON: None CLINICAL INDICATION: Female, 69 years old with history of fall, pain TECHNIQUE: XR elbow complete LT; elbow was examined in AP, lateral, and oblique projections. FINDINGS: No evidence of any acute osseous pathology, joint dislocation, or soft tissue swelling is n oted. No evidence of joint effusion is present. IMPRESSION: No evidence of acute fracture. [facility], , 01/18/2025 5:48 PM
--- NOTE | 2025-01-18 18:00 | CT ---
EXAMINATION TYPE: CT brain cspine wo con, CT facial bones wo con DATE OF EXAM: 01/18/2025 5:43 PM COMPARISON: 09/17/2024 CLINICAL INDICATION: Female, 69 years old with history of fall; pain after fall on blood thinners, pa in TECHNIQUE: Brain: Multiple axial CT images of the brain were obtained without IV contrast. Cspine: Axial CT images from the skull base to the inferior aspect of T2 we obtained without intraven ous contrast. Coronal and sagittal reformatted images were also reviewed. Facial: Axial imaging of the facial structures with sagittal and coronal reformats. CT DLP: 971.8 mGycm, Automated exposure control for dose reduction was used. FINDINGS: Brain: Extra-axial spaces: No abnormal extra-axial fluid collections. Ventricular system: Dilatation in proportion to cerebral atrophy. Cerebral parenchyma: Cerebral atrophy. No acute intraparenchymal hemorrhage or mass effect. The esparza -white junction is well differentiated. Scattered hypoattenuating areas are seen within the white mat ter. Cerebellum: Unremarkable. Mass effect: No evidence of midline shift. Intracranial vasculature: Atherosclerotic calcifications of the intracranial vessels. Embolization co il near the middle cranial fossa on the left near the before meals VALORIE ACOM, Soft tissues: Normal. Calvarium/osseous structures: No depressed skull fracture. Paranasal sinuses and mastoid air cells: Clear. Visualized orbits: Orbital contents are intact. Cervical spine: Fracture: None. Osseous structures: Multilevel degenerative disc disease changes with endplate spurring and disc oste ophyte complex's. Vertebral alignment: Within normal limits. Spinal canal/Neural Foramina: No evidence of significant spinal canal narrowing. No evidence for sign ificant neural foraminal stenosis. Neck soft tissues: Prevertebral soft tissues are within normal limits. Other: The airway is patent. The lung apices are clear. Facial: Soft tissue swelling over the nasal bone displaced fracture visualized. Paranasal sinus mucos al thickening of the turbinates most pronounced anteriorly. The orbital contents are unremarkable.The temporal-mandibular joints appear symmetric. The visualized portion of the paranasal sinuses appear clear. IMPRESSION: 1. No acute intracranial process. 2. Soft tissue swelling of the nasal bridge and terminates correlate for nondisplaced nasal bone fra cture. No other fractures identified. 3. No evidence of cervical spine fracture. 4. Mild multilevel degenerative disc disease. [facility], , 01/18/2025 5:58 PM
[2025-01-18 18:06] LABS: Basophils % (A) 0 %; Eosinophils # (A) 0.1 k/uL (0-0.7); Eosinophils % (A) 2 %; HCT 42.9 % (34.0-46.0); HGB 13.5 gm/dL (11.4-16.0); Lymphocytes # (A) 1.6 k/uL (1.0-4.8); Lymphocytes % (A) 26 %; MCH 30.6 pg (25.0-35.0); MCHC 31.6 g/dL (31.0-37.0); Mean Platelet Volume 7.3; Monocytes # (A) 0.4 k/uL (0-1.0); Monocytes % (A) 7 %; Neutrophils # (A) 3.9 k/uL (1.3-7.7); Neutrophils % (A) 64 %; Platelet Count 229 k/uL (150-450); RBC 4.42 m/uL (3.80-5.40); RDW 13.9 % (11.5-15.5); WBC 6.2 k/uL (3.8-10.6)
[2025-01-18 18:13] LABS: Partial Thromboplastin Time 27.7 sec (22.0-30.0); Prothrombin Time 10.7 sec (10.0-12.5)
[2025-01-18 18:15] LABS: ALT 13 U/L (4-34); AST 24 U/L (14-36); African American GFR (CKD) 82 (>60 ml/min/1.73 sqM); Albumin 3.9 g/dL (3.5-5.0); Alkaline Phosphatase 80 U/L (38-126); Anion Gap 7 mmol/L; Blood Urea Nitrogen 21 mg/dL (7-17); Calcium 8.9 mg/dL (8.4-10.2); Carbon Dioxide 30 mmol/L (22-30); Chloride 102 mmol/L (98-107); Glucose 102 mg/dL (74-99); Non-African American GFR(CKD) 71 (>60 ml/min/1.73 sqM); Potassium 3.2 mmol/L (3.5-5.1); Sodium 139 mmol/L (137-145); Total Bilirubin 0.4 mg/dL (0.2-1.3); Total Protein 6.5 g/dL (6.3-8.2)
[2025-01-18] MEDS: METOCLOPRAMIDE 5 MG/ML 2 ML VIAL IVP STA (18:17)
[2025-01-18] MEDS: MECLIZINE 12.5 MG TAB PO STA (18:18)
[2025-01-18 18:21] VITALS: BP 153/78; RESP 20
== END 2025-01-18 19:14 | disposition home or self-care (01) ==
LOC: EC 17:06
DX: S02.2XXA Fracture of nasal bones, initial encounter for closed fracture (principal); R42 Dizziness and giddiness; Z86.73 Personal history of transient ischemic attack (TIA), and cerebral infarction without residual deficits; Z87.891 Personal history of nicotine dependence; Z88.8 Allergy status to other drugs, medicaments and biological substances; W18.30XA Fall on same level, unspecified, initial encounter
CPT/HCPCS: 36415; 70450; 70486; 72125; 80053; 83605; 85025; 85610; 85730; 99284

== ENCOUNTER 2025-02-03 22:35 | Observation (INO) | payer MEDICARE, BC ==
[2025-02-03 23:11] LABS: Basophils % (A) 0 %; Eosinophils # (A) 0.4 k/uL (0-0.7); Eosinophils % (A) 5 %; HCT 40.2 % (34.0-46.0); HGB 12.8 gm/dL (11.4-16.0); Lymphocytes # (A) 2.5 k/uL (1.0-4.8); Lymphocytes % (A) 28 %; MCH 30.2 pg (25.0-35.0); MCHC 31.7 g/dL (31.0-37.0); MCV 95.1 fL (80.0-100.0); Mean Platelet Volume 7.1; Monocytes # (A) 0.4 k/uL (0-1.0); Monocytes % (A) 5 %; Neutrophils # (A) 5.5 k/uL (1.3-7.7); Neutrophils % (A) 61 %; Platelet Count 359 k/uL (150-450); RBC 4.22 m/uL (3.80-5.40); WBC 9.1 k/uL (3.8-10.6)
--- NOTE | 2025-02-03 23:12 | ED ---
General Adult HPI - General Chief complaint: Nausea/Vomiting/Diarrhea Stated complaint: NVD Time Seen by Provider: 02/03/25 22:42 Source: patient, EMS, RN notes reviewed Mode of arrival: EMS Limitations: no limitations - History of Present Illness Initial comments: 69-year-old female presents to the emergency department for evaluation of nausea and vomiting. Patient reports that this started shortly prior to arrival. She notes that she was just discharged from [facility] on 12 mile yesterday. She had a cardiac cath 2 days ago. She also had an ENT surgery a few days prior to this as she had a fracture from a prior fall earlier in January. She notes that she had a nosebleed and started vomiting. She was having the symptoms of vomiting prior to her admission to [facility] and seemed to improve. She also was having dizziness prior to the admission she saw her neurologist while she was admitted.. She reports continued dizziness now. She denies any recent fever, chills. Admits to cough. Reports a normal bowel movement today. Denies any a bdominal pain, chest pain, shortness of breath. - Related Data Home Medications Medication Instructions Recorded Confirmed Folic Acid 1 mg PO DAILY 06/14/21 02/04/25 Levothyroxine Sodium [Synthroid] 88 mcg PO DAILY 06/14/21 02/04/25 OXcarbazepine [Trileptal] 600 mg PO BID 04/07/22 02/04/25 Rosuvastatin Calcium 40 mg PO DAILY 08/26/24 02/04/25 Sacubitril/Valsartan [Entresto 97 1 tab PO BID 08/26/24 02/04/25 mg-103 mg Tablet] Divalproex ER [Depakote ER] 500 mg PO BID 09/17/24 02/04/25 Aspirin [Adult Low Dose Aspirin EC] 81 mg PO DAILY 09/18/24 02/04/25 Fluticasone Nasal [place] [Flonase 2 spr EA NOSTRIL HS 01/18/25 02/04/25 Nasal [place]] Furosemide [Lasix] 20 mg PO DAILY 01/18/25 02/04/25 carvediloL [Coreg] 6.25 mg PO BID-W/MEALS 01/18/25 02/04/25 Isosorbide Mononitrate ER [Imdur] 15 mg PO DAILY 02/04/25 02/04/25 amLODIPine [Norvasc] 10 mg PO DAILY 02/04/25 02/04/25 Previous Rx's Medication Instructions Recorded Clopidogrel [Plavix] 75 mg PO DAILY #30 tab 04/10/22 Allergies Allergy/AdvReac Type Severity Reaction Status Date / Time prednisone Allergy Swelling & Verified 02/04/25 07:04 joint pain Review of Systems ROS Statement: Those systems with pertinent positive or pertinent negative responses have been documented in the HPI. ROS Other: All systems not noted in ROS Statement are negative. Past Medical History Past Medical History: Coronary Artery Disease (CAD), Chest Pain / Angina, CVA/TIA, Hyperlipidemia, Hypertension, Myocardial Infarction ([place]), Seizure Disorder, Thyroid Disorder Additional Past Medical History / Comment(s): ITP. LAST SEIZURE 02/2023. BRAIN ANEURYSM WITH COILING. SMALL APICAL ANEURYSM. VALVULAR HEART DISEASE Last Myocardial Infarction Date:: 2007 History of Any Multi-Drug Resistant Organisms: None Reported Past Surgical History: Heart Catheterization With Stent, Hysterectomy Additional Past Surgical History / Comment(s): brain coils Past Anesthesia/Blood Transfusion Reactions: No Reported Reaction Date of Last Stent Placement:: 2007 Past Psychological History: No Psychological Hx Reported Smoking Status: Former smoker Past Alcohol Use History: None Reported Past Drug Use History: None Reported - Past Family History Sister(s) Family Medical History: Cancer, Hypertension Additional Family Medical History / Comment(s): breast ca General Exam Limitations: no limitations General appearance: alert, in no apparent distress Head exam: Present: atraumatic, normocephalic, normal inspection Eye exam: Present: normal appearance, PERRL, EOMI. Absent: scleral icterus, conjunctival injection, periorbital swelling ENT exam: Present: mucous membranes dry, TM's normal bilaterally, normal external ear exam Neck exam: Present: normal inspection, full ROM. Absent: tenderness, m eningismus, lymphadenopathy Respiratory exam: Present: normal lung sounds bilaterally. Absent: respiratory distress, wheezes, rales, rhonchi, stridor Cardiovascular Exam: Present: regular rate, normal rhythm, normal heart sounds. Absent: systolic murmur, diastolic murmur, rubs, gallop, clicks GI/Abdominal exam: Present: soft, normal bowel sounds. Absent: distended, tenderness, guarding, rebound, rigid Extremities exam: Present: normal inspection, full ROM, normal capillary refill. Absent: tenderness, pedal edema, joint swelling, calf tenderness Back exam: Present: normal inspection Neurological exam: Present: alert, oriented X3 Psychiatric exam: Present: normal affect, normal mood Skin exam: Present: warm, dry, intact, normal color. Absent: rash Course Vital Signs 02/03/25 02/03/25 02/03/25 22:38 23:15 23:45 Temperature 97.6 F Pulse Rate 59 L 62 71 Respiratory 18 15 16 Rate Blood Pressure 196/98 179/85 136/74 O2 Sat by Pulse 96 97 96 Oximetry 02/04/25 02/04/25 02/04/25 00:00 06:00 11:00 Temperature 98.7 F Pulse Rate 61 63 68 Respiratory 12 15 14 Rate Blood Pressure 123/72 136/64 124/71 O2 Sat by Pulse 97 97 99 Oximetry Medical Decision Making - Medical Decision Making Was pt. sent in by a medical professional or institution (, PA, FREELANCE RECRUITER, urgent care, hospital, or usp...) When possible be specific @ -No Did you speak to anyone other than the patient for history (EMS, parent, family, police, friend...)? What history was obtained from this source @ -Patient's provided most of the history of this patient Did you review nursing and triage notes (agree or disagree)? Why? @ -I reviewed and agree with nursing and triage notes Were old charts reviewed (outside hosp., previous admission, EMS record, old EKG, old radiological studies, urgent care reports/EKG's, usp records)? Report findings @ -No old charts were reviewed Differential Diagnosis (chest pain, altered mental status, abdominal pain women, abdominal pain men, vaginal bleeding, weakness, fever, dyspnea, syncope, headache, dizziness, GI bleed, back pain, seizure, CVA, palpatations, mental health, musculoskeletal)? @ -Differential Weakness: Hypoglycemia, shock, sepsis, hyponatremia, anemia, infection, HI, ETOH, adverse medicine reaction, overdose, stroke, this is not meant to be an all-inclusive list. EKG interpreted by me (3pts min.). @ -EKG at 2240 shows sinus rhythm rate 65, MT 157, QRS 101, QTQTc [id number] X-rays interpreted by me (1pt min.). @ -Chest x-ray obtained no acute cardiopulmonary process CT interpreted by me (1pt min.). @ -CT brain shows no acute intracranial process U/S interpreted by me (1pt. min.). @ -None done What testing was considered but not performed or refused? (CT, X-rays, U/S, la bs)? Why? @ -None What meds were considered but not given or refused? Why? @ -None Did you discuss the management of the patient with other professionals (professionals i.e. , PA, FREELANCE RECRUITER, lab, RT, psych nurse, social work job titles, glass vial bending conveyor feeder, teacher, chief privacy officer, rn case mgr)? Give summary @ -Management discussed with sound was accepting of the admission Was smoking cessation discussed for >3mins.? @ -No Was critical care preformed (if so, how long)? @ -No Were there social determinants of health that impacted care today? How? (Homelessness, low income, unemployed, alcoholism, drug addiction, t ransportation, low edu. Level, literacy, decrease access to med. care, [place] [facility], rehab)? @ -No Was there de-escalation of care discussed even if they declined (Discuss DNR or withdrawal of care, Hospice)? DNR status @ -No What co-morbidities impacted this encounter? (DM, HTN, Smoking, COPD, CAD, Cance r, CVA, ARF, Chemo, Hep., AIDS, mental health diagnosis, sleep apnea, morbid obesity)? @ -None Was patient admitted / discharged? Hospital course, mention meds given and route, prescriptions, significant lab abnormalities, going to OR and other pertinent info. @ -Patient presented to the emergency department for evaluation of nausea, vomiting, dizziness.Laboratory studies obtained revealing no significant leukocytosis, hemoglobin 12.8; normal coagulation studies; CMP shows BUN 23, creatinine 0.98 lipase is elevated at 413. Negative for COVID, influenza, RSV. Troponin 0.050 which is likely from the patient's recent cardiac cath. Patient was administered fluid hydration along with Reglan in the emergency department. She did receive Zofran prior to arrival. Chest x-ray obtained revealing no acute process. CT of the brain also obtained shows no acute process. Patient will be admitted for intractable nausea and vomiting. Case discussed with Dr. Aguayo who is accepting of the admission. Case discussed with Dr. Bazzi who also evaluated the patient. Undiagnosed new problem with uncertain prognosis? @ -No Drug Therapy requiring intensive monitoring for toxicity (Heparin, Nitro, Insulin, Cardizem)? @ -No Were any procedures done? @ -No Diagnosis/symptom? @ -Nausea and vomiting Acute, or Chronic, or Acute on Chronic? @ -Acute Uncomplicated (without systemic symptoms) or Complicated (systemic symptoms)? @ -Uncomplicated Side effects of treatment? @ -No Exacerbation, Progression, or Severe Exacerbation? @ -No Poses a threat to life or bodily function? How? (Chest pain, [place], HI, pneumonia, PE, COPD, DKA, ARF, appy, cholecystitis, CVA, Diverticulitis, Homicidal, Garg icidal, threat to staff... and all critical care pts) @ -No - Lab Data Result diagrams: 02/04/25 06:25 02/04/25 06:25 Lab Results 02/03/25 02/03/25 02/03/25 Range/Units 23:07 23:07 23:07 WBC 9.1 (3.8-10.6) k/uL RBC 4.22 (3.80-5.40) m/uL Hgb 12.8 (11.4-16.0) gm/dL Hct 40.2 (34.0-46.0) % MCV 95.1 (80.0-100.0) fL MCH 30.2 (25.0-35.0) pg MCHC 31.7 (31.0-37.0) g/dL RDW 14.0 (11.5-15.5) % Plt Count 359 (150-450) k/uL MPV 7.1 Neutrophils % 61 % Lymphocytes % 28 % Monocytes % 5 % Eosinophils % 5 % Basophils % 0 % Neutrophils # 5.5 (1.3-7.7) k/uL Lymphocytes # 2.5 (1.0-4.8) k/uL Monocytes # 0.4 (0-1.0) k/uL Eosinophils # 0.4 (0-0.7) k/uL Basophils # 0.0 (0-0.2) k/uL PT 11.4 (10.0-12.5) sec INR 1.0 (<1.2) APTT 25.3 (22.0-30.0) sec Sodium 137 (137-145) mmol/L Potassium 3.9 (3.5-5.1) mmol/L Chloride 106 (98-107) mmol/L Carbon Dioxide 23 (22-30) mmol/L Anion Gap 8 mmol/L BUN 23 H (7-17) mg/dL Creatinine 0.98 (0.52-1.04) mg/dL Est GFR (CKD-EPI)AfAm 69 (>60 ml/min/1.73 sqM) Est GFR (CKD-EPI)NonAf 60 (>60 ml/min/1.73 sqM) Glucose 169 H (74-99) mg/dL Calcium 9.0 (8.4-10.2) mg/dL Total Bilirubin 0.2 (0.2-1.3) mg/dL AST 28 (14-36) U/L ALT 17 (4-34) U/L Alkaline Phosphatase 69 (38-126) U/L Troponin I (0.000-0.034) ng/mL NT-Pro-B Natriuret Pep pg/mL Total Protein 6.1 L (6.3-8.2) g/dL Albumin 3.6 (3.5-5.0) g/dL Lipase 413 H (23-300) U/L 02/03/25 02/03/25 Range/Units 23:07 23:40 WBC (3.8-10.6) k/uL RBC (3.80-5.40) m/uL Hgb (11.4-16.0) gm/dL Hct (34.0-46.0) % MCV (80.0-100.0) fL MCH (25.0-35.0) pg MCHC (31.0-37.0) g/dL RDW (11.5-15.5) % Plt Count (150-450) k/uL MPV Neutrophils % % Lymphocytes % % Monocytes % % Eosinophils % % Basophils % % Neutrophils # (1.3-7.7) k/uL Lymphocytes # (1.0-4.8) k/uL Monocytes # (0-1.0) k/uL Eosinophils # (0-0.7) k/uL Basophils # (0-0.2) k/uL PT (10.0-12.5) sec INR (<1.2) APTT (22.0-30.0) sec Sodium (137-145) mmol/L Potassium (3.5-5.1) mmol/L Chloride (98-107) mmol/L Carbon Dioxide (22-30) mmol/L Anion Gap mmol/L BUN (7-17) mg/dL Creatinine (0.52-1.04) mg/dL Est GFR (CKD-EPI)AfAm (>60 ml/min/1.73 sqM) Est GFR (CKD-EPI)NonAf (>60 ml/min/1.73 sqM) Glucose (74-99) mg/dL Calcium (8.4-10.2) mg/dL Total Bilirubin (0.2-1.3) mg/dL AST (14-36) U/L ALT (4-34) U/L Alkaline Phosphatase (38-126) U/L Troponin I 0.050 H* (0.000-0.034) ng/mL NT-Pro-B Natriuret Pep 386 pg/mL Total Protein (6.3-8.2) g/dL Albumin (3.5-5.0) g/dL Lipase (23-300) U/L Disposition Clinical Impression: Nausea & vomiting, Elevated lipase Disposition: ADMITTED IP TO THIS [facility] Condition: Stable Is patient prescribed a controlled substance at d/c from ED?: No
[2025-02-03 23:16] LABS: ALT 17 U/L (4-34); AST 28 U/L (14-36); African American GFR (CKD) 69 (>60 ml/min/1.73 sqM); Albumin 3.6 g/dL (3.5-5.0); Alkaline Phosphatase 69 U/L (38-126); Anion Gap 8 mmol/L; Blood Urea Nitrogen 23 mg/dL (7-17); Carbon Dioxide 23 mmol/L (22-30); Chloride 106 mmol/L (98-107); Glucose 169 mg/dL (74-99); Lipase 413 U/L (23-300); Non-African American GFR(CKD) 60 (>60 ml/min/1.73 sqM); Potassium 3.9 mmol/L (3.5-5.1); Sodium 137 mmol/L (137-145); Total Bilirubin 0.2 mg/dL (0.2-1.3); Total Protein 6.1 g/dL (6.3-8.2)
[2025-02-03 23:22] LABS: Partial Thromboplastin Time 25.3 sec (22.0-30.0); Prothrombin Time 11.4 sec (10.0-12.5)
[2025-02-03] MEDS: SODIUM CHLORIDE 0.9% 1,000 ML IV ONE (23:22)
[2025-02-03] MEDS: METOCLOPRAMIDE 5 MG/ML 2 ML VIAL IVP STA (23:22)
[2025-02-03] MEDS: hydrALAZINE HCL 20 MG/ML 1 ML VIAL IVP STA (23:28)
--- NOTE | 2025-02-03 23:54 | XR ---
EXAMINATION TYPE: XR chest 1V portable DATE OF EXAM: 02/03/2025 11:48 PM COMPARISON: Chest radiographs from 04/07/2022 CLINICAL INDICATION: Female, 69 years old with history of cough; [facility] TECHNIQUE: XR chest 1V portable Frontal view of the chest. FINDINGS: Lungs/Pleura: There is no evidence of pleural effusion, focal consolidation, or pneumothorax. Pulmonary vascularity: Unremarkable. Heart/mediastinum: Cardiomediastinal silhouette is unremarkable. Atherosclerotic calcifications are seen in the aorta. Musculoskeletal: No acute osseous pathology. Other findings: None Lines/Tubes: IMPRESSION: No acute cardiopulmonary disease/process. [facility], , 02/03/2025 11:51 PM
--- NOTE | 2025-02-04 00:01 | CT ---
EXAMINATION TYPE: CT brain wo con DATE OF EXAM: 02/03/2025 11:54 PM COMPARISON: . 01/18/2025. CLINICAL INDICATION: Female, 69 years old with history of dizziness, pt arrives to ED via EMS for c/o N/V and epistaxis, dizzy. blood in vomit. pt states she did swallow some of the blood during her nos ebleed. bleeding is controlled. pt had nose sx last week and was discharged yesterday for a heart cat h. no stent placement. H/O brain coils TECHNIQUE: Brain: Axial CT images of the brain were obtained with coronal and sagittal reformats created and rev iewed. Contrast used: None. Oral contrast used: None. CT DLP: 1229.7 mGycm, Automated exposure control for dose reduction was used. FINDINGS: Brain: Extra-axial spaces: No abnormal extra-axial fluid collections. Ventricular system: Dilatation in proportion to cerebral atrophy. Cerebral parenchyma: Remote left frontal lobe injuries suggested with left frontal lobe areas of esparza -white matter differentiation loss. Cerebral atrophy. No acute intraparenchymal hemorrhage or mass ef fect. The esparza-white junction is well differentiated. Vascular clips near the [place] of [place] Cerebellum: Unremarkable. Mass effect: No evidence of midline shift. Intracranial vasculature: Atherosclerotic calcifications of the intracranial vessels. Soft tissues: Normal. Calvarium/osseous structures: No depressed skull fracture. Paranasal sinuses and mastoid air cells: Mild scattered paranasal sinus disease. Visualized orbits: Orbital contents are intact. IMPRESSION: 1. No acute intracranial process. 2. Couple areas of esparza-white matter loss of differentiation left frontal lobe similar prior compati ble with remote injuries. [facility], , 02/03/2025 11:58 PM
[2025-02-04] MEDS ORDERED: NALOXONE 0.4 MG/ML 1 ML VIAL IV PRN (00:13)
[2025-02-04] MEDS ORDERED: MORPHINE SULFATE 2 MG/ML SYRINGE IV PRN (00:13)
[2025-02-04] MEDS ORDERED: KETOROLAC 15 MG/ML 1 ML VIAL IVP PRN (00:13)
[2025-02-04] MEDS ORDERED: METOCLOPRAMIDE 5 MG/ML 2 ML VIAL IVP PRN (00:20)
[2025-02-04 01:14] LABS: Influenza A Not Detected (Not Detectd); Influenza B Not Detected (Not Detectd); RSV Not Detected (Not Detectd)
[2025-02-04] MEDS: SODIUM CHLORIDE 0.9% 1,000 ML IV SCH (01:19)
--- NOTE | 2025-02-04 02:34 | P.HPIM ---
History of Present Illness H&P Date: 02/04/25 Chief Complaint: nausea/vomiting Patient is a 69-year-old female with coronary artery disease status post stent, send history of CVA/TIA, cerebral aneurysm s/p coiling and stenting, valvular heart disease, hypertension, hyperlipidemia, seizure disorder presenting with nausea and vomiting. Patient endorses having a nosebleed and was spitting up blood. Started to vomit shortly after her nosebleed. Her got worried and decided to call EMS to bring him to the emergency department. Patient states she had nose surgery 1 week ago, at [facility], after suffering from a nose fracture due to a fall on . He states while admitted she also had issue with hypertensive urgency. While there she also required cardiac catheterization that was done 2 days ago, and also had heart monitor placed while she was there. Reports of having normal bowel movement today. Patient states she feels better since being admitted. Patient denies any fever, chills, chest pain, shortness of breath, abdominal pain, bloody bowel movements, diarrhea, urinary symptoms. EKG independently interpreted displaying sinus rhythm, rate 65 bpm, QTc 389 ms CXR independently interpreted displaying no acute cardiopulmonary process Brain CT showed no acute intracranial process Cepheid 4 Plex remarkable for influenza A/B, RSV, COVID T 97.6 F, MD 59, RR 18, BP 186/98, O2 saturation 96% on room air Review of systems: Pertinent positives and negatives as discussed in HPI, a complete review of systems was performed and all other systems are negative. Physical examination: Vital signs reviewed General: non toxic, no distress, appears at stated age Derm: no unusual rashes/lesions, warm Head: Bruising on right cheek, normocephalic, symmetric Mouth: no lip lesion, mucus membranes moist Cardiovascular: S1S2 reg, positive dorsalis pedis pulse bilateral, no edema Lungs: CTA bilateral, no rhonchi, no rales, no accessory muscle use Abdominal: soft, nontender to palpation, no guarding Neuro: CN II-XI grossly intact, no gross focal neuro deficits Psych: Alert, oriented to person, place, and time Assessment/Plan: Patient is a 69-year-old female with coronary artery disease status post stent, send history of CVA/TIA, hypertension, hyperlipidemia, seizure disorder presenting with nausea and vomiting. ED documentation reviewed. Discussed with the patient. The patient is admitted with an anticipated less than 2 midnight stay for evaluation of nausea/vomiting. #. Elevated troponin #. CAD s/p stent #. Known valvular heart disease #. Hypertension Status post cardiac catheterization and monitor placement 2 days ago Troponin 0.050, will continue to trend Aspirin 81 mg p.o. daily Plavix 75 mg p.o. daily Atorvastatin 80 mg p.o. at bedtime Entresto 97-103 mg p.o. twice daily Coreg 6.25 mg p.o. twice daily Lasix 20 mg p.o. twice daily Amlodipine 2.5 mg p.o. twice daily Cardiac telemetry #. Nausea/vomiting Lipase 413 within normal limit, denies abdominal pain Denies hematemesis, has been spitting up blood due to recent nose surgery Pending patient denies tarry black or bright red stool Hgb within normal limits at 12.8, platelet 359 Clear liquid diet Normal saline at 75 cc an hour Zofran as needed Reglan 5 mg IVP every 8 hours as needed #. Hypertensive urgency S/p 10 mg IV hydralazine given by ED Clonidine 0.1 mg as needed if BP > 180/120 Resume home antihypertensives in a.m. #. Seizure disorder Oxcarbazepine 600 mg p.o. twice daily Depakote 500 mg p.o. twice daily #. Hypothyroidism Resume Synthroid 88 mcg p.o. daily DVT prophylaxis: Heparin 5000 unit SQ every 8 hours CODE STATUS: Full code Anticipated discharge place: Pending clinical course Priscilla Reyna MD PGY-1 IM Dictation was produced using [employer] dictation software. please excuse any grammatical, word or spelling errors. I have seen and evaluated the patient today. I Discussed the case with the resident and agree with the resident's findings I edited the assessment and plan as necessary as documented in the resident's note. Past Medical History Past Medical History: Coronary Artery Disease (CAD), Chest Pain / Angina, CVA/TIA, Hyperlipidemia, Hypertension, Myocardial Infarction ([place]), Seizure Disorder, Thyroid Disorder Additional Past Medical History / Comment(s): ITP. LAST SEIZURE 02/2023. BRAIN ANEURYSM WITH COILING. SMALL APICAL ANEURYSM. VALVULAR HEART DISEASE Last Myocardial Infarction Date:: 2007 History of Any Multi-Drug Resistant Organisms: None Reported Past Surgical History: Heart Catheterization With Stent, Hysterectomy Additional Past Surgical History / Comment(s): brain coils Past Anesthesia/Blood Transfusion Reactions: No Reported Reaction Date of Last Stent Placement:: 2007 Past Psychological History: No Psychological Hx Reported Smoking Status: Former smoker Past Alcohol Use History: None Reported Past Drug Use History: None Reported - Past Family History Sister(s) Family Medical History: Cancer, Hypertension Additional Family Medical History / Comment(s): breast ca Medications and Allergies Home Medications Medication Instructions Recorded Confirmed Type Folic Acid 1 mg PO DAILY 06/14/21 01/18/25 History Levothyroxine Sodium [Synthroid] 88 mcg PO DAILY 06/14/21 01/18/25 History OXcarbazepine [Trileptal] 600 mg PO BID 04/07/22 01/18/25 History Clopidogrel [Plavix] 75 mg PO DAILY #30 tab 04/10/22 01/18/25 Rx Rosuvastatin Calcium 40 mg PO DAILY 08/26/24 01/18/25 History Sacubitril/Valsartan [Entresto 97 1 tab PO BID 08/26/24 01/18/25 History mg-103 mg Tablet] amLODIPine [Norvasc] 2.5 mg PO BID 08/26/24 01/18/25 History Divalproex ER [Depakote ER] 500 mg PO BID 09/17/24 01/18/25 History Aspirin [Adult Low Dose Aspirin EC] 81 mg PO DAILY 09/18/24 01/18/25 History Fluticasone Nasal [place] [Flonase 2 spr EA NOSTRIL HS 01/18/25 01/18/25 History Nasal [place]] Furosemide [Lasix] 20 mg PO BID 01/18/25 01/18/25 History carvediloL [Coreg] 6.25 mg PO BID 01/18/25 01/18/25 History Allergies Allergy/AdvReac Type Severity Reaction Status Date / Time prednisone Allergy Swelling & Verified 02/03/25 22:46 joint pain Physical Exam Vitals: Vital Signs Temp Pulse Resp BP Pulse Ox 02/04/25 00:00 61 12 123/72 97 02/03/25 23:45 71 16 136/74 96 02/03/25 23:15 62 15 179/85 97 02/03/25 22:38 97.6 F 59 L 18 196/98 96 Intake and Output 02/03/25 02/03/25 02/04/25 14:59 22:59 06:59 Other: Weight 53.524 kg Results CBC & Chem 7: 02/03/25 23:07 02/03/25 23:07 Labs: Abnormal Lab Results - Last 24 Hours (Table) 02/03/25 02/03/25 Range/Units 23:07 23:40 BUN 23 H (7-17) mg/dL Glucose 169 H (74-99) mg/dL Troponin I 0.050 H* (0.000-0.034) ng/mL Total Protein 6.1 L (6.3-8.2) g/dL Lipase 413 H (23-300) U/L
[2025-02-04] MEDS ORDERED: cloNIDine HCL 0.1 MG TAB PO PRN (02:37)
[2025-02-04 02:38] LABS: Appearance,Urine Clear (Clear); Bilirubin,Urine Negative (Negative); Blood,Urine Negative (Negative); Color,Urine Colorless; Glucose,Urine (UA) Negative (Negative); Ketones,Urine Negative (Negative); Leukocyte Esterase,Urine Negative (Negative); Nitrite,Urine Negative (Negative); PH, Urine 6.5 (5.0-8.0); Protein,Urine Negative (Negative); Urobilinogen,Urine <2.0 mg/dL (<2.0)
[2025-02-04] MEDS ORDERED: ACETAMINOPHEN TAB 325 MG TAB PO PRN (02:41)
[2025-02-04] MEDS ORDERED: ONDANSETRON 4 MG/2 ML VIAL IVP PRN (02:41)
[2025-02-04] MEDS: LEVOTHYROXINE 88 MCG TAB PO SCH (06:28)
[2025-02-04 06:45] LABS: ALT 16 U/L (4-34); AST 24 U/L (14-36); African American GFR (CKD) 85 (>60 ml/min/1.73 sqM); Albumin 3.3 g/dL (3.5-5.0); Albumin/Globulin Ratio 1.4; Alkaline Phosphatase 64 U/L (38-126); Anion Gap 6 mmol/L; Basophils % (A) 0 %; Blood Urea Nitrogen 21 mg/dL (7-17); Calcium 8.6 mg/dL (8.4-10.2); Carbon Dioxide 23 mmol/L (22-30); Chloride 108 mmol/L (98-107); Eosinophils # (A) 0.1 k/uL (0-0.7); Eosinophils % (A) 2 %; Globulin 2.4 g/dL; Glucose 103 mg/dL (74-99); HCT 37.9 % (34.0-46.0); HGB 12.4 gm/dL (11.4-16.0); Lymphocytes # (A) 1.2 k/uL (1.0-4.8); Lymphocytes % (A) 16 %; MCHC 32.6 g/dL (31.0-37.0); MCV 95.1 fL (80.0-100.0); Magnesium 1.8 mg/dL (1.6-2.3); Mean Platelet Volume 6.9; Monocytes # (A) 0.2 k/uL (0-1.0); Monocytes % (A) 3 %; Neutrophils # (A) 5.9 k/uL (1.3-7.7); Neutrophils % (A) 79 %; Non-African American GFR(CKD) 74 (>60 ml/min/1.73 sqM); Platelet Count 282 k/uL (150-450); Potassium 3.7 mmol/L (3.5-5.1); RBC 3.99 m/uL (3.80-5.40); Sodium 137 mmol/L (137-145); Total Bilirubin 0.3 mg/dL (0.2-1.3); Total Protein 5.7 g/dL (6.3-8.2); WBC 7.5 k/uL (3.8-10.6)
[2025-02-04] MEDS: HEPARIN SODIUM,PORCINE 5,000 UNIT/ML 1 ML VIAL SQ SCH (08:16)
[2025-02-04] MEDS: carvediloL 6.25 MG TAB PO SCH (08:17)
[2025-02-04] MEDS ORDERED: amLODIPine 2.5 MG TAB PO SCH (09:00)
[2025-02-04] MEDS: ATORVASTATIN 80 MG TAB PO SCH (09:52)
[2025-02-04] MEDS: ASPIRIN 81 MG PO SCH (09:52)
[2025-02-04] MEDS: amLODIPine 10 MG TAB PO SCH (09:53)
[2025-02-04] MEDS: FUROSEMIDE 20 MG TAB PO SCH (09:53)
[2025-02-04] MEDS: CLOPIDOGREL 75 MG TAB PO SCH (09:53)
[2025-02-04] MEDS: ISOSORBIDE MONONITRATE ER 15 MG TAB PO SCH (09:54)
[2025-02-04] MEDS: DIVALPROEX ER 500 MG TAB.ER.24H PO SCH (09:57)
[2025-02-04] MEDS: OXcarbazepine 300 MG TAB PO SCH (09:57)
[2025-02-04] MEDS: SACUBITRIL/VALSARTAN 97 MG-103 MG TABLET PO SCH (10:32)
[2025-02-04 11:26] VITALS: BP 124/71; PULSE 68; RESP 14; TEMP 98.7
--- NOTE | 2025-02-04 11:28 | P.DS ---
Providers Date of admission: 02/04/25 00:15 Expected date of discharge: 02/04/25 Attending physician: Renata Aguayo MD Primary care physician: [facility] Course: Discharge Diagnosis: Nausea and vomiting. Resolved. Nausea and vomiting began after patient had nosebleed and reported swallowing blood. Resolved after arrival to our facility. Patient denies any further episodes of nausea or vomiting, denies any abdominal pain or discomfort, tolerating oral intake well. Elevated troponins. Patient asymptomatic of cardiac complaints. Troponins elevated secondary to heart cath completed 2 days ago At [facility]. Patient reports cardiac cath was clean reporting patent cardiac stent and no new occlusive coronary artery disease reported. Epistaxis. Resolved prior to arrival to our facility. Patient had a fall resulting in a nose fracture on 01/18/2025 underwent nasal bone surgery repair 1 week ago. History of CAD status post stenting. Patient to continue cardiac medication regimen with Lasix 20 mg daily, rosuvastatin 40 mg daily, Entresto 97-103 mg tablet twice daily, Plavix 75 mg daily, isosorbide mononitrate 15 mg daily, amlodipine 10 mg daily, carvedilol 6.25 mg twice daily, and aspirin 81 mg daily. Hypertension. Monitor vital signs at home as discussed and continue daily medication regimen with carvedilol 6.25 mg twice daily and amlodipine 10 mg daily. Hypothyroidism. Continue daily medication regimen of levothyroxine 88 mcg daily. Seizure disorder. Continue Depakote 500 mg twice daily and oxcarbazepine 600 mg twice daily. Hospital Course: Patient is a pleasant 69-year-old female with a past medical history of CAD status post stenting, hypertension, hyperlipidemia, hypothyroidism, seizure disorder, and recent nasal bone fracture followed by surgery last week at [facility]. She presented to our facility on 02/03/2025 secondary to nausea and vomiting. As stated above, patient recently underwent repair of fractured nasal bone last week at [facility]. She reports occasionally getting nosebleeds since and had a nosebleed earlier in which she tilted her head back and swallowed some blood. Patient reports after she swallowed the blood she began vomiting and her became very concerned and called EMS for transport to the hospital. Epistaxis resolved and patient had no further episodes of nausea or vomiting. She denied having any other complaints including headache, lightheadedness, dizziness, chest pain, palpitations, shortness of breath, abdominal pain, or experiencing any numbness/tingling/weakness in her extremities. Vital signs upon arrival show blood pressure 196/98, heart rate 59, resp 18, temp 97.6 F, and SpO2 of 96% room air. EKG was completed showing normal sinus rhythm at 65 bpm with left v entricular hypertrophy and T wave inversion in lateral leads unchanged from previous EKG completed 01/18/2025. Chest x-ray completed negative for acute cardiopulmonary process. CT brain negative for acute intracranial process showing couple areas of esparza-white matter loss of differentiation in left frontal lobe similar to prior compatible with previous remote injuries. Labs were completed and reviewed. CBC was unremarkable. Coagulation profile normal findings. BMP showing slightly elevated BUN of 23 otherwise normal findings. Blood glucose was elevated on arrival at 169. Liver profile unremarkable. Troponin was elevated at 0.050 with proBNP of 386. Lipase slightly elevated at 413, however patient denied abdominal pain. . Patient admitted under services at this time for observation. Troponins were trended resulting at 0.050, 0.075, and 0.072. Patient had no further episodes of nausea or vomiting and denied having any chest pain or discomfort or any other complaints. Diet was advanced and patient tolerated well. Hemoglobin remained stable from 12.8-12.4. Patient reports feeling much better and ready to go home. She denied having any complaints or needs. Patient instructed she will need to follow-up outpatient with her acid wash operator at [facility] as scheduled this week for cardiac cath follow-up and loop recorder monitor interrogation as scheduled. Patient also in structed she will need to follow-up with ENT next week for postsurgical follow- up. Patient to follow-up with PCP in 1 to 2 days. Patient instructed to return to the emergency department if needed for further nosebleeds, nausea or vomiting and return to the emergency department immediately with any episodes of chest pain or discomfort. Patient seen and examined at bedside Vital signs reviewed and stable. General: Nontoxic, no distress and appears stated age. Derm: Skin warm and dry, normal coloration for ethnicity. Head: Atraumatic, normocephalic and symmetric. Eyes: EOM's intact, no lid lag, and anicteric sclera Mouth: no lip lesions, mucus membranes moist Cardiovascular: regular rate and rhythm with normal S1S2, soft systolic murmur, positive posterior tibial pulses bilaterally, and cap refill < 2 seconds. Lungs: Respirations even, regular, and unlabored on room air. Lungs CTA bilaterally, no rhonchi, no rales, no wheezing, and no accessory muscle usage. Abdominal: soft, nontender to palpation, no guarding, no appreciable organomegaly Ext: ROM intact. No gross muscle atrophy, no edema, no contractures Neuro: Speech clear, face symmetrical and CN II-XII grossly intact with no noted focal neuro deficits Psych: Alert and oriented to person, place, time, and situation. Appropriate and pleasant affect. A total of 36 minutes of time were spent preparing this complex discharge summary. Pt was discharged on at 11:27 AM. Patient was seen independently by Nurse Practitioner. This document was prepared using [employer] dictation software. Please allow for errors in city dispatch supervisor while rare they do occur. Mitch Goins NP rendered care for this patient independently, reviewed the findings and plan as documented in the note above. I did not physically speak with or examine the patient on this date. Patient Condition at Discharge: Stable Plan - Discharge Summary New Discharge Prescriptions: Continue Levothyroxine Sodium [Synthroid] 88 mcg PO DAILY Folic Acid 1 mg PO DAILY OXcarbazepine [Trileptal] 600 mg PO BID Aspirin [Adult Low Dose Aspirin EC] 81 mg PO DAILY carvediloL [Coreg] 6.25 mg PO BID-W/MEALS amLODIPine [Norvasc] 10 mg PO DAILY Isosorbide Mononitrate ER [Imdur] 15 mg PO DAILY Clopidogrel [Plavix] 75 mg PO DAILY #30 tab Sacubitril/Valsartan [Entresto 97 mg-103 mg Tablet] 1 tab PO BID Rosuvastatin Calcium 40 mg PO DAILY Divalproex ER [Depakote ER] 500 mg PO BID Fluticasone Nasal [place] [Flonase Nasal [place]] 2 spr EA NOSTRIL HS Furosemide [Lasix] 20 mg PO DAILY Discharge Medication List Folic Acid 1 mg PO DAILY 06/14/21 [History] Levothyroxine Sodium [Synthroid] 88 mcg PO DAILY 06/14/21 [History] OXcarbazepine [Trileptal] 600 mg PO BID 04/07/22 [History] Clopidogrel [Plavix] 75 mg PO DAILY #30 tab 04/10/22 [Rx] Rosuvastatin Calcium 40 mg PO DAILY 08/26/24 [History] Sacubitril/Valsartan [Entresto 97 mg-103 mg Tablet] 1 tab PO BID 08/26/24 [History] Divalproex ER [Depakote ER] 500 mg PO BID 09/17/24 [History] Aspirin [Adult Low Dose Aspirin EC] 81 mg PO DAILY 09/18/24 [History] Fluticasone Nasal [place] [Flonase Nasal [place]] 2 spr EA NOSTRIL HS 01/18/25 [History] Furosemide [Lasix] 20 mg PO DAILY 01/18/25 [History] carvediloL [Coreg] 6.25 mg PO BID-W/MEALS 01/18/25 [History] Isosorbide Mononitrate ER [Imdur] 15 mg PO DAILY 02/04/25 [History] amLODIPine [Norvasc] 10 mg PO DAILY 02/04/25 [History] Follow up Appointment(s)/Referral(s): Charley Woody MD [Primary Care Provider] - 1-2 days Patient Instructions/Handouts: Acute Nausea and Vomiting (DC) Activity/Diet/Wound Care/Special Instructions: Activity: As tolerated. Diet: Resume heart healthy and carb consistent diet. Special Instructions: Take all of your medications as directed and remember to keep all of your doctor's appointments and follow-up as needed. Folllow up with your primary acid wash operator as scheduled next week for reading of loop recorder and post-cardiac cath follow up. If you develop another nose bleed, it is best to lean forward and hold tissue, if you tilt your head backwards you are at an increasd risk of swallowing the blood which may lead to further episodes of nausea and vomiting. Be sure to f ollow up with your ENT doctor as scheduled. Thank you for allowing us to participate in your care, it was truly a pleasure having you for our patient!!! Discharge Disposition: HOME SELF-CARE
== END 2025-02-04 11:42 | disposition home or self-care (01) ==
LOC: EC 22:35 → 6NMEDSUR 02-04 00:15
PROVIDERS: ADMIT Internal Medicine; ATTEND Internal Medicine
DX: R11.2 Nausea with vomiting, unspecified (principal); R74.8 Abnormal levels of other serum enzymes; R79.89 Other specified abnormal findings of blood chemistry; R04.0 Epistaxis; E03.9 Hypothyroidism, unspecified; E78.5 Hyperlipidemia, unspecified; I10 Essential (primary) hypertension; I25.10 Atherosclerotic heart disease of native coronary artery without angina pectoris; I25.2 Old myocardial infarction; G40.909 Epilepsy, unspecified, not intractable, without status epilepticus; Z79.02 Long term (current) use of antithrombotics/antiplatelets; Z79.82 Long term (current) use of aspirin; Z79.890 Hormone replacement therapy; Z79.899 Other long term (current) drug therapy; Z86.73 Personal history of transient ischemic attack (TIA), and cerebral infarction without residual deficits; Z87.891 Personal history of nicotine dependence; Z95.5 Presence of coronary angioplasty implant and graft; Z88.8 Allergy status to other drugs, medicaments and biological substances
CPT/HCPCS: 96361; 96372; 96374; 96375; 99285; 36415; 93005; 83880; 80053 ×2; 83690; 83735; 84484 ×2; 85025 ×2; 85610; 85730; 81003; 87636; 71045; 70450; G0378; J0360; J1644; J2765

== ENCOUNTER → 2025-04-12 | Outpatient (CLI) | payer MEDICARE, BC ==
--- NOTE | 2025-04-17 12:17 | CTL ---
EXAMINATION TYPE: CT Low Dose Lung DATE OF EXAM: 04/12/2025 9:52 AM COMPARISON: 02/24/2024 SCREENING VISIT: Subsequent CT DIAGNOSTIC QUALITY: Satisfactory CLINICAL INDICATION: Female, 69 years old with history of Z12.2 ENCNTR SCREEN FOR MALIGNANT NEOPLASM OF RESP, Former smoker was 1/2 ppd x 50 years, Lung cancer screening, History of tobacco use. TECHNIQUE: Low dose computed tomography scan was performed through the chest at 1 mm thick sections a nd reconstructed images in the coronal plane at 1 mm thick sections. Contrast used: mL of , (none if empty) Oral contrast used: (none if empty) CT DLP: 49.7 mGycm, Automated exposure control for dose reduction was used. CT CTDI: 1.5 mGy, Automated exposure control for dose reduction was used. FINDINGS: LUNG NODULES: None. LUNGS: COPD: Severity: None Fibrosis: Severity: None Lymph nodes: None Other findings: None RIGHT PLEURAL SPACE: Effusion: None Calcification: None Thickening: None Pneumothorax: None LEFT PLEURAL SPACE: Effusion: None Calcification: None Thickening: None Pneumothorax: None HEART: Other: Ascending thoracic aorta at the level the main pulmonary artery measures 3.6 cm. The main pul monary artery at the bifurcation measures 2.7 cm. Heart Size: Normal Coronary calcification: Moderate coronary artery calcifications present. Pericardial effusion: None OTHER FINDINGS: Upper abdomen: Normal Bony thorax: Normal Supraclavicular region: Normal IMPRESSION: No suspicious changes for primary or metastatic neoplasm FOLLOW UP CT CHEST RECOMMENDATION: Follow-up low-dose CT chest one year CT LUNG RAD: Lung-Rad 1 Negative [facility], Workstation: [email or web address], 04/17/2025 12:14 PM
== END | disposition home or self-care (01) ==
LOC: RADCTMAIN 09:27
PROVIDERS: ATTEND Internal Medicine
DX: Z12.2 Encounter for screening for malignant neoplasm of respiratory organs (principal); Z87.891 Personal history of nicotine dependence
CPT/HCPCS: 71271